=== PATIENT | male | born 1930 | race Caucasian/White ===

== ENCOUNTER 2016-10-05 13:39 | Emergency (ER) | payer MEDICARE, MEDICAID ==
[~2016-10-05] VITALS: Ht 160 cm; Wt 70.0 kg
[~2016-10-05 13:39] MED LIST: ALBU17I INH; ASPI1TAB7 PO; CALCTAB38 PO; COQ1150C2 PO; IPRA17I INH; LORA-474 PO; OMEP20TA39 PO
[2016-10-05 13:47] VITALS: BP 116/80; PULSE 89; RESP 18; TEMP 98.3; O2SAT 96
--- NOTE | 2016-10-05 14:11 | PD ---
HPI Chief Complaint: Fall Time Seen by Provider: 13:56 Travel History International Travel<30 days: No Contact w/Intl Traveler<30days: No Traveled to known affect area: No History of Present Illness HPI 85-year-old male patient presents to the ER, states that he was in his shower and slipped and fell, was able to hold onto the guard rail with his left hand, but states that his left hand also slipped and fell between the wall and the rail causing a skin tear to the left hand, and he states he was able to sit himself down on the floor. He states that he also injured his right knee. He denies hitting his head, had no loss of consciousness, chest pains, shortness of breath, or any other issues. Pain is mostly in the right knee and left hand and is currently a 4 out of 10. Modifying Factors: None Associated Signs & Symptoms: Slip and fall in shower, left hand injury, right knee injury Risk Factors: None PFSH Past Medical History Arthritis: Yes Asthma: Yes Autoimmune Disease: No Anxiety: Yes Depression: Yes Cancer: Yes (Lung/IN REMISSION PER PT) Cardiovascular Problems: Yes Chemotherapy: Yes COPD: Yes Cerebrovascular Accident: No Diabetes: No Diminished Hearing: No Endocrine: No Gastrointestinal Disorders: Yes GERD: Yes Genitourinary: No Hepatitis: No Hiatal Hernia: No Immune Disorder: No Kidney Stones: Yes Musculoskeletal: Yes Neurologic: No Psychiatric: Yes Reproductive: No Respiratory: Yes (RIGHT LUNG CA) Immunizations Current: Yes Radiation Therapy: Yes Seizures: No Thyroid Disease: No Ulcer: Yes Past Surgical History Surgical History: No Previous Surgery AICD: No Body Medical Devices: HARDWARE RIGHT KNEE, HIP, RIGHT SCLERAL BUCKLE Eye Surgery: Yes ([place] CATARACTS) Oral Surgery: Yes Pacemaker: No Tonsillectomy: Yes Other Surgery: Yes Social History Alcohol Use: No Tobacco Use: No (QUT 45YRS AGO) Substance Use: No Allergies-Medications (Allergen,Severity, Reaction): Coded Allergies: No Known Allergies (Verified , 05/21/14) Reported Meds & Prescriptions Reported Meds & Active Scripts Active Reported Proventil Hfa 6.7 GM Inh (Albuterol Sulfate) 90 Mcg/Act Aer 1 Puff INH TID PRN Aspir-Low (Aspirin) 81 Mg Tabdr 81 Mg PO DAILY Co Q-10 (Coenzyme Q10 (Ubidecarenone)) 150 Mg Cap 150 Mg PO HS Lorazepam 1 Mg Tab 1 Mg PO Q6H David Shook ([facility] [place] [facility]) 1 Cap 1 Cap PO DAILY Anoro Ellipta Inh (Umeclidinium/Vilanterol) 62.5-25 Mcg/Act Aero 1 Puff INH DAILY Review of Systems Except as stated in HPI: all other systems reviewed are Neg Physical Exam Narrative GENERAL: Well-developed pleasant elderly white male patient currently not in acute distress. Awake and oriented 3. SKIN: Focused skin assessment warm/dry. Left hand with stellate skin tear measuring 3 cm. Bleeding controlled. HEAD: Atraumatic. Normocephalic. EYES: Pupils equal and round. No scleral icterus. No injection or drainage. ENT: No nasal bleeding or discharge. Mucous membranes pink and moist. NECK: Trachea midline. No JVD. CARDIOVASCULAR: Regular rate and rhythm. No murmur appreciated. RESPIRATORY: No accessory muscle use. Clear to auscultation. Breath sounds equal bilaterally. GASTROINTESTINAL: Abdomen soft, non-tender, nondistended. Hepatic and splenic margins not palpable. MUSCULOSKELETAL: No obvious deformities. No clubbing. No cyanosis. No edema. NEUROLOGICAL: Awake and alert. No obvious cranial nerve deficits. Motor grossly within normal limits. Normal speech. PSYCHIATRIC: Appropriate mood and affect; insight and judgment normal. EXTREMITIES: No clubbing, cyanosis, or edema. No joint tenderness, effusion, or edema noted. There is notable edema in the right knee, decreased range of motion secondary to pain. Data Data Last Documented VS Vital Signs Date Time Temp Pulse Resp B/P Pulse Ox O2 Delivery O2 Flow Rate FiO2 10/05/16 13:55 94 18 97 Room Air 10/05/16 13:47 98.3 116/80 Orders Hand, Complete ([id number]) (10/05/16 13:56) Knee, Complete (4vws) (10/05/16 13:56) MDM Medical Decision Making Medical Screen Exam Complete: Yes Emergency Medical Condition: Yes Medical Record Reviewed: Yes Differential Diagnosis Slip and fall, left hand skin tear, right knee injuryrule out acute fractures versus strain Narrative Course X-ray of the right knee and left hand did not reveal any signs of underlying acute fractures. At this point, patient is placed in a knee immobilizer. The left hand skin tear was cleaned and dressed. Patient's tetanus status is up-to- date. At this point, my plan would be to release the patient with follow-up to primary care physician. Decreased weightbearing on the right leg. Return for any worsening in pain or new symptoms as needed. The plan was discussed with him and he states understanding. Diagnosis Primary Impression: Strain of knee and leg, right Additional Impression: Tear of skin of left wrist Med/Other Pt SpecificInfo: Prescription(s) given Scripts Walker with Front Wheels 1 Mis Mis #1 EA .ROUTE DIRECTED PRN (walking) Ref 1 Prov:Anish Crane MD 10/05/16 Tramadol 50 Mg Tab50 Mg PO Q8H PRN (PAIN) #15 TAB Ref 0 Prov:Anish Crane MD 10/05/16 Disposition: 01 DISCHARGE HOME Condition: Stable Anish Crane MD Oct 05, 2016 14:11
[2016-10-05] MEDS ORDERED: ASPI81TA19 PO (14:38)
[2016-10-05] MEDS ORDERED: LORA1TAB12 PO (14:38)
[2016-10-05] MEDS ORDERED: CO Q150C PO (14:38)
[2016-10-05] MEDS ORDERED: ALBU6.7H INH (14:38)
[2016-10-05] MEDS ORDERED: MISC1CAP2 PO (14:38)
[2016-10-05] MEDS ORDERED: UMEC1AER INH (14:38)
--- NOTE | 2016-10-05 15:09 | RADRPT ---
EXAM DATE/TIME: 10/05/2016 14:21 [facility] COMPARISON: No previous studies available for comparison. INDICATIONS : Left hand pain after fall today MEDICAL HISTORY : None. SURGICAL HISTORY : None. ENCOUNTER: Initial ACUITY: 1 day PAIN SCORE: 2/10 LOCATION: Left entire hand FINDINGS: No acute fracture is seen. The bones appear osteopenic. The bones and joints are normally aligned. No foreign body is seen. CONCLUSION: No definite acute abnormality is seen. J Carlos Diana MD on October 05, 2016 at 15:00 Board Certified Radiologist. This report was verified electronically.
--- NOTE | 2016-10-05 15:35 | RADRPT ---
EXAM DATE/TIME: 10/05/2016 14:16 [facility] COMPARISON: No previous studies available for comparison. INDICATIONS : Right knee pain after fall today MEDICAL HISTORY : None. SURGICAL HISTORY : None. ENCOUNTER: Initial ACUITY: 1 day PAIN SCORE: 5/10 LOCATION: Right anterior knee FINDINGS: There is narrowing of the knee joint. There is a minimal effusion. An acute fracture is not seen. There are two screws seen in the proximal tibia. The bones are osteopenic. Vascular calcifications are seen. CONCLUSION: No definite acute abnormality is seen. Chronic change is seen as described above. J Carlos Diana MD on October 05, 2016 at 14:53 Board Certified Radiologist. This report was verified electronically.
[2016-10-05] MEDS ORDERED: TRAM50TA PO (15:52)
[2016-10-05] MEDS ORDERED: WALKER WHEELS/F1 MIS (15:52)
== END 2016-10-05 16:49 | disposition home or self-care (01) ==
LOC: NEPE 13:39
DX: S86.811A Strain of other muscle(s) and tendon(s) at lower leg level, right leg, initial encounter (principal); S76.911A Strain of unspecified muscles, fascia and tendons at thigh level, right thigh, initial encounter; S61.512A Laceration without foreign body of left wrist, initial encounter; W18.2XXA Fall in (into) shower or empty bathtub, initial encounter; Y93.E1 Activity, personal bathing and showering; Y92.002 Bathroom of unspecified non-institutional (private) residence as the place of occurrence of the external cause; Z87.39 Personal history of other diseases of the musculoskeletal system and connective tissue; Z87.09 Personal history of other diseases of the respiratory system; Z86.59 Personal history of other mental and behavioral disorders; Z86.79 Personal history of other diseases of the circulatory system; Z87.19 Personal history of other diseases of the digestive system; Z87.442 Personal history of urinary calculi; Z85.118 Personal history of other malignant neoplasm of bronchus and lung
CPT/HCPCS: 73130; 73564; 99284; L1830

== ENCOUNTER 2016-11-21 08:15 | Day surgery (SDC) | payer MEDICARE, MEDICAID ==
[~2016-11-21] VITALS: Ht 172.7 cm; Wt 53.6 kg
[~2016-11-21 08:15] MED LIST changes: -ALBU17I INH; +ALBU6.7H INH; -ASPI1TAB7 PO; +ASPI81TA19 PO; -CALCTAB38 PO; +CO Q150C PO; -COQ1150C2 PO; -IPRA17I INH; -LORA-474 PO; +LORA1TAB12 PO; +MISC1CAP2 PO; -OMEP20TA39 PO; +TRAM50TA PO; +UMEC1AER INH; +WALKER WHEELS/F1 MIS
[2016-11-21 08:31] VITALS: BP 124/77; PULSE 96; RESP 20; TEMP 97.4; O2SAT 90
[2016-11-21 09:11] LABS: AUTOMATED NEUTROPHIL # 6.2 TH/MM3 (1.8-7.7); BASOPHIL # 0.1 TH/MM3 (0-0.2); EOSINOPHIL # 0.3 TH/MM3 (0-0.4); HEMATOCRIT 39.5 % (39.0-51.0); HEMO FLAGS DIFF FINAL; LYMPH % 11.2 % (9.0-44.0); LYMPHOCYTE # 0.9 TH/MM3 (1.0-4.8); MEAN CELL VOLUME 93.5 FL (80.0-100.0); MEAN CORPUSCULAR HEMOGLOBIN 31.8 PG (27.0-34.0); MONO % 6.9 % (0.0-8.0); NEUT % 76.9 % (16.0-70.0); PLATELET COUNT 142 TH/MM3 (150-450); RED BLOOD COUNT 4.22 MIL/MM3 (4.50-5.90); RED CELL DISTRIBUTION WIDTH 13.1 % (11.6-17.2)
[2016-11-21 09:15] LABS: APTT (PATIENT) 28.6 SEC (24.3-30.1); PROTHROMBIN TIME - PATIENT 10.6 SEC (9.8-11.6)
[2016-11-21] MEDS ORDERED: ceFAZolin 2 GM PREMIX 50 ML - implanted port removal IV SCH (09:15)
[2016-11-21] MEDS ORDERED: SODIUM CHLORIDE 0.9% 1000 ML IV SCH (09:15)
[2016-11-21] MEDS ORDERED: LIDOCAINE 1%/EPINEPHrine 1:100,000 SOLN 20 ML VIAL ONE (09:59)
--- NOTE | 2016-11-21 10:27 | PD.RAD ---
Post Procedure Progress Note Pre Procedure Diagnosis: (1) Port catheter in place Post Procedure Diagnosis: (1) Port catheter in place Procedure Date: Nov 21, 2016 Supervising Radiologist: Jonathan Galeas Proceduralist/Assist: Carlos Jorge, RT(R), RT Annette(R)() Estimated blood loss: <10 ml Anesthesia: Local Plan of Activity Patient to Unit: Nursing Unit Patient Condition: Good Additional Comments: Intact port removed See PACS Report for procedural detail/treatment Jonathan Galeas MD Nov 21, 2016 10:27
[2016-11-21 10:30] VITALS: BP 124/77; PULSE 96; RESP 18; TEMP 97.4; O2SAT 91
[2016-11-21 10:45] VITALS: BP 113/72; PULSE 96; RESP 18; O2SAT 91
[2016-11-21 11:00] VITALS: BP 119/76; PULSE 96; RESP 18; O2SAT 91
--- NOTE | 2016-11-21 11:15 | RADRPT ---
EXAM DATE/TIME: 11/21/2016 00:00 [facility] COMPARISON: No previous studies available for comparison. INDICATIONS : Patient presents with a history of lung cancer and is in need of port removal that is no longer neede d. MEDICAL HISTORY : COPD Asthma Hx of right lung cancer Hx of kidney stones GERD Hx of ulcers SURGICAL HISTORY : Cataract removal Colonoscopy 2010 EGD 2010 Excision of basal cell cancer Tonsillectomy Upper endoscopy Bilat hip sx 2011 and 2013 Right knee sx 1965 ENCOUNTER: Subsequent ACUITY: > 1 year PAIN SCORE: 0/10 LOCATION: N/A Prophylactic antibiotics were administered with appropriate pre-procedure timing. Vancomycin within 2 hrs of procedure, Ancef (or alternative) within 1 hr of procedure. PROCEDURE : 1. Removal of [id number]-[id number]. 2. No conscious sedation was provided per patient request. The risk, benefits and potential complications of [id number] removal were discussed. Written conse nt was obtained. The patient was placed supine. The chest wall was prepped in sterile fashion. Full sterile techniqu e was used, including cap, mask, sterile gloves and gown, and a large sterile sheet. Hand hygiene an d 2% chlorhexidine and/or Betadine/alcohol prep was utilized per protocol for cutaneous antisepsis. The skin and subcutaneous tissues were infiltrated with local anesthetic solution. A small incision w as made, the subcutaneous pocket was opened. The port was dissected from the subcutaneous tissues and easily removed in one piece. The pocket incision was closed with subcuticular Vicryl suture. Steri -Strips were applied. The patient tolerated the procedure well and there were no complications. The patient was sent to [facility] anesthesia recovery in stable condition. CONCLUSION: Uncomplicated port removal as above. Jonathan Galeas MD on November 21, 2016 at 11:13 Board Certified Radiologist. This report was verified electronically.
== END 2016-11-21 11:00 | disposition home or self-care (01) ==
LOC: HROP 08:15 → HRIP 08:16 → HROP 11:00
PROVIDERS: ATTEND Internal Medicine Hematology & Oncology
DX: Z45.2 Encounter for adjustment and management of vascular access device (principal); Z85.118 Personal history of other malignant neoplasm of bronchus and lung; J44.9 Chronic obstructive pulmonary disease, unspecified; K21.9 Gastro-esophageal reflux disease without esophagitis; F41.9 Anxiety disorder, unspecified; M19.90 Unspecified osteoarthritis, unspecified site; Z85.828 Personal history of other malignant neoplasm of skin
CPT/HCPCS: 36590; 85025; 85610; 85730; J0690; J7030

== ENCOUNTER 2017-07-01 14:02 | Emergency (ER) | payer MEDICARE, MEDICAID ==
[~2017-07-01] VITALS: Ht 172.7 cm; Wt 53.0 kg
[~2017-07-01 14:02] MED LIST changes: -TRAM50TA PO
[2017-07-01] MEDS ORDERED: SAWCAP2 PO (14:22)
[2017-07-01 14:23] VITALS: BP 117/75; PULSE 68; RESP 16; TEMP 97.7; O2SAT 96
[2017-07-01 14:25] VITALS: BP 117/75; PULSE 68; RESP 16; TEMP 97.7; O2SAT 96
[2017-07-01] MEDS ORDERED: CETI10CA3 PO (14:36)
--- NOTE | 2017-07-01 14:40 | PD ---
HPI Chief Complaint: Skin Problem Time Seen by Provider: 14:30 Travel History International Travel<30 days: No Contact w/Intl Traveler<30days: No Traveled to known affect area: No History of Present Illness HPI 86-year-old male presents for evaluation of pruritus. Symptoms started 2-3 months ago. He reports pruritus and occasional papular lesions focally localized to the back. He reports that he has been using an unknown over-the- counter cream on his back since yesterday with minimal relief. He denies any recent change in living environment. Denies any new clothing. He has no other complaints at this time. PFSH Past Medical History Arthritis: Yes Asthma: Yes Autoimmune Disease: No Anxiety: Yes Depression: Yes Cancer: Yes (Lung/IN REMISSION PER PT) Cardiovascular Problems: Yes Chemotherapy: Yes COPD: Yes Cerebrovascular Accident: No Diabetes: No Diminished Hearing: No Endocrine: No Gastrointestinal Disorders: Yes GERD: Yes Genitourinary: No Hepatitis: No Hiatal Hernia: No Immune Disorder: No Kidney Stones: Yes Musculoskeletal: Yes (Artheritis) Neurologic: No Psychiatric: Yes Reproductive: No Respiratory: Yes (RIGHT LUNG CA) Immunizations Current: Yes Radiation Therapy: Yes Seizures: No Thyroid Disease: No Ulcer: Yes Past Surgical History Abdominal Surgery: No AICD: No Body Medical Devices: HARDWARE RIGHT KNEE, HIP, RIGHT SCLERAL BUCKLE Cardiac Surgery: No Ear Surgery: No Eye Surgery: Yes ([place] CATARACTS) Genitourinary Surgery: No Gynecologic Surgery: No Joint Replacement: No Oral Surgery: Yes Pacemaker: No Thoracic Surgery: No Tonsillectomy: Yes Other Surgery: Yes Social History Alcohol Use: No Tobacco Use: No (QUT 45YRS AGO) Substance Use: No Allergies-Medications (Allergen,Severity, Reaction): Coded Allergies: No Known Allergies (Verified Adverse Reaction, Unknown, 07/01/17) Reported Meds & Prescriptions Reported Meds & Active Scripts Active Zyrtec (Cetirizine HCl) 10 Mg Capsule 1 Tab PO DAILY 14 Days Reported Saw [place] Extract (Saw [place]-Zinc) 160-15 mg Cap 2 Cap PO DAILY Proventil Hfa 6.7 GM Inh (Albuterol Sulfate) 90 Mcg/Act Aer 1 Puff INH TID PRN Aspir-Low (Aspirin) 81 Mg Tabdr 81 Mg PO DAILY Co Q-10 (Coenzyme Q10 (Ubidecarenone)) 150 Mg Cap 150 Mg PO HS Lorazepam 1 Mg Tab 1 Mg PO TID Anoro Ellipta Inh (Umeclidinium/Vilanterol) 62.5-25 Mcg/Act Aero 1 Puff INH DAILY Review of Systems Except as stated in HPI: all other systems reviewed are Neg Physical Exam Narrative GENERAL: Well-developed well-nourished male in no acute distress SKIN: Warm and dry. Patient has a few small excoriated papular lesions noted to the back. No petechiae, no vesicles, no pustules, no purpura, no hives HEAD: Atraumatic. Normocephalic. EYES: Pupils equal and round. No scleral icterus. No injection or drainage. ENT: No nasal bleeding or discharge. Mucous membranes pink and moist. NECK: Trachea midline. No JVD. CARDIOVASCULAR: Regular rate and rhythm. No murmur appreciated. RESPIRATORY: No accessory muscle use. Clear to auscultation. Breath sounds equal bilaterally. GASTROINTESTINAL: Abdomen soft, non-tender, nondistended. Hepatic and splenic margins not palpable. MUSCULOSKELETAL: No obvious deformities. No clubbing. No cyanosis. No edema. NEUROLOGICAL: Awake and alert. No obvious cranial nerve deficits. Motor grossly within normal limits. Normal speech. PSYCHIATRIC: Appropriate mood and affect; insight and judgment normal. Data Data Last Documented VS Vital Signs Date Time Temp Pulse Resp B/P (MAP) Pulse Ox O2 Delivery O2 Flow Rate FiO2 07/01/17 14:25 97.7 68 16 117/75 (89) 96 Orders Orders Ed Discharge Order (07/01/17 14:37) [facility] Medical Decision Making Medical Screen Exam Complete: Yes Emergency Medical Condition: Yes Medical Record Reviewed: Yes Differential Diagnosis Bug bites, flea bites, irritant contact dermatitis, pityriasis rosea, viral exanthem, scabies, hives Narrative Course 86-year-old male with long-standing pruritic papular lesions on his back. Examination reveals few small scattered excoriated papular lesions on his back with unclear etiology. He has been using some sort of [id number] cream with minimal relief. The patient will be treated with nonsedating antihistamines and advised follow-up with a patient office rep if symptoms persist. Diagnosis Primary Impression: Pruritic rash Additional Instructions: Medications prescribed. Follow up with a patient office rep. Return for any emergent medical conditions. Med/Other Pt SpecificInfo: Prescription(s) given Scripts Cetirizine HCl (Zyrtec) 10 Mg Capsule 1 TAB PO DAILY for 14 Days Prov: Daniel Villa MD 07/01/17 Disposition: 01 DISCHARGE HOME Condition: Stable Fabien Melendez Jul 01, 2017 14:40
== END 2017-07-01 14:59 | disposition home or self-care (01) ==
LOC: PHEFT 14:02
DX: R21 Rash and other nonspecific skin eruption (principal); J44.9 Chronic obstructive pulmonary disease, unspecified; K21.9 Gastro-esophageal reflux disease without esophagitis; F32.9 Major depressive disorder, single episode, unspecified; Z85.118 Personal history of other malignant neoplasm of bronchus and lung; Z79.82 Long term (current) use of aspirin; Z87.891 Personal history of nicotine dependence
CPT/HCPCS: 99283

== ENCOUNTER 2017-08-12 19:11 | Inpatient (IN) | payer MEDICARE, MEDICAID ==
[~2017-08-12] VITALS: Ht 172.7 cm; Wt 51.7 kg
[~2017-08-12 19:11] MED LIST changes: +CETI10CA3 PO; +HEPARIN SODIUM - SQ 10,000 UNITS/ML VIAL SQ SCH; -MISC1CAP2 PO; +SAWCAP2 PO; -WALKER WHEELS/F1 MIS
[2017-08-12 19:15] VITALS: BP 113/65; PULSE 113; RESP 18; TEMP 100.8; O2SAT 95
[2017-08-12] MEDS ORDERED: SODIUM CHLORIDE 0.9% FLUSH 10 ML FLUSH IVF PRN (19:30)
--- NOTE | 2017-08-12 19:31 | PD ---
HPI Chief Complaint: Respiratory Symptoms Time Seen by Provider: 19:26 Travel History International Travel<30 days: No Contact w/Intl Traveler<30days: No Traveled to known affect area: No History of Present Illness HPI 86-year-old male with history of lung cancer status post chemotherapy and radiation therapy reportedly in remission for 47 months, COPD, brought in by ambulance from home for evaluation of shortness of breath. The patient reports that he developed a cough yesterday productive of yellowish sputum. No hemoptysis. He had some slight shortness of breath yesterday evening which progressively worsened throughout the day today. He also noted generalized weakness and a fever. He was provided 1 DuoNeb treatment and IV Solu-Medrol by EMS and on arrival reportedly feels improved. He denies chest pain. Dyspnea is at rest, worse with exertion. He has noted some mild bilateral lower extremity edema. Denies history of DVT or PE. PFSH Past Medical History Arthritis: Yes Asthma: Yes Autoimmune Disease: No Anxiety: Yes Depression: Yes Cancer: Yes (Lung/IN REMISSION PER PT) Cardiovascular Problems: Yes Chemotherapy: Yes COPD: Yes Cerebrovascular Accident: No Diabetes: No Diminished Hearing: No Endocrine: No Gastrointestinal Disorders: Yes GERD: Yes Genitourinary: No Hepatitis: No Hiatal Hernia: No Immune Disorder: No Kidney Stones: Yes Musculoskeletal: Yes (Artheritis) Neurologic: No Psychiatric: Yes Reproductive: No Respiratory: Yes (RIGHT LUNG CA) Immunizations Current: Yes Radiation Therapy: Yes Seizures: No Thyroid Disease: No Ulcer: Yes Past Surgical History Abdominal Surgery: No AICD: No Body Medical Devices: HARDWARE RIGHT KNEE, HIP, RIGHT SCLERAL BUCKLE Cardiac Surgery: No Ear Surgery: No Eye Surgery: Yes ([place] CATARACTS) Genitourinary Surgery: No Gynecologic Surgery: No Joint Replacement: No Oral Surgery: Yes Pacemaker: No Thoracic Surgery: No Tonsillectomy: Yes Other Surgery: Yes Social History Alcohol Use: No Tobacco Use: No (QUT 45YRS AGO) Substance Use: No Allergies-Medications (Allergen,Severity, Reaction): Coded Allergies: No Known Allergies (Verified Adverse Reaction, Unknown, 08/12/17) Reported Meds & Prescriptions Reported Meds & Active Scripts Active Zyrtec (Cetirizine HCl) 10 Mg Capsule 1 Tab PO DAILY 14 Days Reported Saw [place] Extract (Saw [place]-Zinc) 160-15 mg Cap 2 Cap PO DAILY Proventil Hfa 6.7 GM Inh (Albuterol Sulfate) 90 Mcg/Act Aer 1 Puff INH TID PRN Aspir-Low (Aspirin) 81 Mg Tabdr 81 Mg PO DAILY Co Q-10 (Coenzyme Q10 (Ubidecarenone)) 150 Mg Cap 150 Mg PO HS Lorazepam 1 Mg Tab 1 Mg PO TID Anoro Ellipta Inh (Umeclidinium/Vilanterol) 62.5-25 Mcg/Act Aero 1 Puff INH DAILY Review of Systems Except as stated in HPI: all other systems reviewed are Neg Physical Exam Narrative GENERAL: Well-developed, cachectic, slightly labored breathing. SKIN: Focused skin assessment warm/dry. HEAD: Atraumatic. Normocephalic. EYES: Pupils equal and round. No scleral icterus. No injection or drainage. ENT: Mucous membranes pink and moist. NECK: Trachea midline. No JVD. CARDIOVASCULAR: Tachycardic, rate 14, regular. RESPIRATORY: Slightly labored breathing, clear and equal breath sounds bilaterally. GASTROINTESTINAL: Abdomen soft, non-tender, nondistended. MUSCULOSKELETAL: No obvious deformities. No clubbing. No cyanosis. Mild bilateral lower extremity edema. NEUROLOGICAL: Awake and alert. No obvious cranial nerve deficits. Motor grossly within normal limits. Normal speech. PSYCHIATRIC: Appropriate mood and affect; insight and judgment normal. Data Data Last Documented VS Vital Signs Date Time Temp Pulse Resp B/P (MAP) Pulse Ox O2 Delivery O2 Flow Rate FiO2 08/12/17 22:03 102 18 119/72 (88) 95 Room Air 08/12/17 19:15 100.8 Orders Orders Complete Blood Count With Diff (08/12/17 19:26) Comprehensive Metabolic Panel (08/12/17 19:26) B-Type Natriuretic Peptide (08/12/17 19:26) Act Partial Throm Time (Ptt) (08/12/17 19:26) Prothrombin Time / Inr (Pt) (08/12/17 19:26) Ckmb (Isoenzyme) Profile (08/12/17 19:26) Troponin I (08/12/17 19:26) Influenzae A/B Antigen (08/12/17 19:26) Blood Culture (08/12/17 19:26) Iv Access Insert/Monitor (08/12/17 19:26) Ecg Monitoring (08/12/17 19:26) Oximetry (08/12/17 19:26) Oxygen Administration (08/12/17 19:26) Chest, Single Ap (08/12/17 19:26) Ct Pulmonary Angiogram (08/12/17 19:26) Sodium Chloride 0.9% Flush (Ns Flush) (08/12/17 19:30) Acetaminophen (Tylenol) (08/12/17 21:00) Ceftriaxone Inj (Rocephin Inj) (08/12/17 21:00) Azithromycin Inj (Zithromax Inj) (08/12/17 21:00) Iohexol 350 Inj (Omnipaque 350 Inj) (08/12/17 21:12) Labs Laboratory Tests Test 08/12/17 20:00 White Blood Count 13.1 TH/MM3 Red Blood Count 4.27 MIL/MM3 Hemoglobin 13.9 GM/DL Hematocrit 40.9 % Mean Corpuscular Volume 95.7 FL Mean Corpuscular Hemoglobin 32.6 PG Mean Corpuscular Hemoglobin Concent 34.0 % Red Cell Distribution Width 12.8 % Platelet Count 116 TH/MM3 Mean Platelet Volume 8.7 FL Neutrophils (%) (Auto) 85.9 % Lymphocytes (%) (Auto) 6.2 % Monocytes (%) (Auto) 4.7 % Eosinophils (%) (Auto) 0.6 % Basophils (%) (Auto) 2.6 % Neutrophils # (Auto) 11.3 TH/MM3 Lymphocytes # (Auto) 0.8 TH/MM3 Monocytes # (Auto) 0.6 TH/MM3 Eosinophils # (Auto) 0.1 TH/MM3 Basophils # (Auto) 0.3 TH/MM3 CBC Comment DIFF FINAL Differential Comment Prothrombin Time 10.3 SEC Prothromb Time International Ratio 1.0 RATIO Activated Partial Thromboplast Time 28.3 SEC Blood Urea Nitrogen 16 MG/DL Creatinine 1.10 MG/DL Random Glucose 136 MG/DL Total Protein 8.2 GM/DL Albumin 4.2 GM/DL Calcium Level 8.4 MG/DL Alkaline Phosphatase 74 U/L Aspartate Amino Transf (AST/SGOT) 16 U/L Alanine Aminotransferase (ALT/SGPT) 14 U/L Total Bilirubin 1.1 MG/DL Sodium Level 136 MEQ/L Potassium Level 4.2 MEQ/L Chloride Level 101 MEQ/L Carbon Dioxide Level 30.2 MEQ/L Anion Gap 5 MEQ/L Estimat Glomerular Filtration Rate 63 ML/MIN Total Creatine Kinase 86 U/L Troponin I LESS THAN 0.02 NG/ML B-Type Natriuretic Peptide 66 PG/ML MDM Medical Decision Making Medical Screen Exam Complete: Yes Emergency Medical Condition: Yes Medical Record Reviewed: Yes Differential Diagnosis Pneumonia, COPD exacerbation, influenza, PE Narrative Course Initial vital signs show heart rate 113, blood pressure 113/65, pulse ox 95% on room air, oral temperature 100.8F. CBC: WBC 13.1, hemoglobin 13.9, hematocrit 40.9, platelets 116, neutrophils 86%. CMP is essentially unremarkable. Chest x-ray: CONCLUSION: Post therapy changes the right lung with pleural thickening or pleural fluid in the right base. The findings have progressed when compared to the prior study. CT pulmonary angiogram: CONCLUSION: 1. No evidence of pulmonary embolism. 2. Right pleural effusion Influenza is negative. The patient was empirically written for Rocephin and azithromycin for possible pneumonia given fever, cough, respiratory distress. His COPD exacerbation seem to have improved with 1 DuoNeb treatment and IV Solu-Medrol given by EMS prior to arrival. His breathing remains slightly labored, however his lung sounds are now clear. Given the patient's significant comorbidities, fever, COPD exacerbation, moderate size right pleural effusion, he will be admitted for further treatment and evaluation. He reports that he is followed by a fitness centre manager, however he cannot recall his doctor's name. The patient was made aware of all findings and is amenable to this plan. Case discussed with hospitalist BHAVNA Briggs. The patient will be admitted to the hospitalist service under Dr. Michaud. Diagnosis Primary Impression: COPD exacerbation Additional Impression: Pleural effusion Admitting Information Admitting Physician Requests: Admit Tito Beal MD Aug 12, 2017 19:31
[2017-08-12 20:12] VITALS: BP 120/64; PULSE 101; RESP 18; O2SAT 95
[2017-08-12 20:19] LABS: AUTOMATED NEUTROPHIL # 11.3 TH/MM3 (1.8-7.7); BASOPHIL # 0.3 TH/MM3 (0-0.2); BASOPHIL % 2.6 % (0.0-2.0); EOSINOPHIL # 0.1 TH/MM3 (0-0.4); EOSINOPHIL % 0.6 % (0.0-4.0); HEMATOCRIT 40.9 % (39.0-51.0); HEMOGLOBIN 13.9 GM/DL (13.0-17.0); LYMPH % 6.2 % (9.0-44.0); LYMPHOCYTE # 0.8 TH/MM3 (1.0-4.8); MEAN CELL VOLUME 95.7 FL (80.0-100.0); MEAN CORPUSCULAR HEMOGLOBIN 32.6 PG (27.0-34.0); MEAN PLATELET VOLUME 8.7 FL (7.0-11.0); MONO % 4.7 % (0.0-8.0); MONOCYTE # 0.6 TH/MM3 (0-0.9); NEUT % 85.9 % (16.0-70.0); PLATELET COUNT 116 TH/MM3 (150-450); RED BLOOD COUNT 4.27 MIL/MM3 (4.50-5.90); RED CELL DISTRIBUTION WIDTH 12.8 % (11.6-17.2); WHITE BLOOD COUNT 13.1 TH/MM3 (4.0-11.0)
[2017-08-12 20:25] LABS: CHLORIDE 101 MEQ/L (98-107); SODIUM (NA) 136 MEQ/L (136-145)
[2017-08-12 20:29] LABS: ALBUMIN 4.2 GM/DL (3.4-5.0); BICARBONATE 30.2 MEQ/L (21.0-32.0); CALCIUM 8.4 MG/DL (8.5-10.1); GLUCOSE,RANDOM 136 MG/DL (74-106)
[2017-08-12 20:30] LABS: BLOOD UREA NITROGEN 16 MG/DL (7-18)
[2017-08-12 20:31] LABS: PROTHROMBIN TIME - PATIENT 10.3 SEC (9.8-11.6)
[2017-08-12 20:32] LABS: ALT (GPT) 14 U/L (12-78); AST (GOT) 16 U/L (15-37); GLOMERULAR FILTRATION RATE 63 ML/MIN (>89)
--- NOTE | 2017-08-12 20:33 | RADRPT ---
EXAM DATE/TIME: 08/12/2017 20:02 [facility] COMPARISON: CHEST SINGLE AP, October 05, 2014, 3:51. INDICATIONS : Short of breath. MEDICAL HISTORY : Chronic obstructive pulmonary disease. Gastroesophageal reflux disease. Right lung cancer. SURGICAL HISTORY : None. ENCOUNTER: Initial ACUITY: 2 days PAIN SCORE: 0/10 LOCATION: Bilateral chest FINDINGS: The cardiac silhouette is normal in transverse diameter. There are findings of peripheral scarring in volving the right lung with post therapy changes in the right hilum and volume loss with pleural thic kening and a small amount of effusion. The left lung is free of acute parenchymal opacity. CONCLUSION: Post therapy changes the right lung with pleural thickening or pleural fluid in the right base. The f indings have progressed when compared to the prior study. Charly Medrano MD on August 12, 2017 at 20:31 Board Certified Radiologist. This report was verified electronically.
[2017-08-12 20:34] LABS: TOTAL BILIRUBIN ADULT 1.1 MG/DL (0.2-1.0); TOTAL PROTEIN 8.2 GM/DL (6.4-8.2)
[2017-08-12 20:35] LABS: ALKALINE PHOSPHATASE 74 U/L (45-117)
[2017-08-12 20:37] LABS: TROPONIN I LESS THAN 0.02 NG/ML (0.02-0.05)
[2017-08-12] MEDS ORDERED: ACETAMINOPHEN 325 MG TAB PO ONE (21:00)
[2017-08-12] MEDS ORDERED: AZITHROMYCIN INJ 500 MG in SODIUM CHLOR 0.9% 250 ML INJ 250 ML IV ONE (21:00)
[2017-08-12] MEDS ORDERED: cefTRIAXone INJ 1,000 MG in SODIUM CHLORIDE 0.9% INJ 100 ML IV ONE (21:00)
[2017-08-12] MEDS ORDERED: IOHEXOL 350 MG/ML 10 ML VIAL (for RAD DIAG) IVCONTRAST ONE (21:12)
--- NOTE | 2017-08-12 21:57 | RADRPT ---
EXAM DATE/TIME: 08/12/2017 20:57 [facility] COMPARISON: No previous studies available for comparison. INDICATIONS : Shortness of breath. History of right lung cancer. IV CONTRAST: 75 cc Omnipaque 350 (iohexol) IV RADIATION DOSE: 6.70 CTDIvol (mGy) MEDICAL HISTORY : Carcinoma, lung. Chronic obstructive pulmonary disease. SURGICAL HISTORY : None. ENCOUNTER: Initial ACUITY: 1 day PAIN SCALE: 0/10 LOCATION: Right chest TECHNIQUE: Volumetric scanning of the chest was performed using a pulmonary embolism protocol MIP images were re constructed. Using automated exposure control and adjustment of the mA and/or kV according to patien t size, radiation dose was kept as low as reasonably achievable to obtain optimal diagnostic quality images. DICOM format image data is available electronically for review and comparison. Follow-up recommendations for detected pulmonary nodules are based at a minimum on nodule size and pa tient risk factors according to Fleischner Society Guidelines. FINDINGS: Examination of the pulmonary vasculature demonstrates good filling of the main, lobar and segmental b ranches. There are no filling defects to suggest pulmonary embolism. Multiplanar reconstructions are also unremarkable. There are centrilobular emphysematous changes throughout both lungs. Moderate right-sided effusion is present. There are posterior the changes in the right hilum. A 5 cm bulla is present in the right up per lobe. CONCLUSION: 1. No evidence of pulmonary embolism. 2. Right pleural effusion Charly Medrano MD on August 12, 2017 at 21:53 Board Certified Radiologist. This report was verified electronically.
[2017-08-12 22:03] VITALS: BP 119/72; PULSE 102; RESP 18; O2SAT 95
[2017-08-12] MEDS ORDERED: NALOXONE HCL 0.4 MG/ML AMP IV PUSH PRN (22:30)
[2017-08-12] MEDS ORDERED: SODIUM CHLORIDE 0.9% FLUSH 10 ML FLUSH IV FLUSH PRN (22:30)
[2017-08-13] VITALS (8 sets, daily range): BP systolic 95–134; BP diastolic 56–72; PULSE 86–113; RESP 18–24; TEMP 95.5–97; O2SAT 87–100
[2017-08-13] MEDS: RESP: ALBUTEROL 2.5 MG/IPRATROPIUM 0.5 MG NEB (SCH) NEB ×6 (00:45→21:55)
[2017-08-13] MEDS: HEPARIN SODIUM - SQ 10,000 UNITS/ML VIAL SQ SCH ×2 (06:30→11:55)
[2017-08-13 08:39] LABS: AUTOMATED NEUTROPHIL # 11.2 TH/MM3 (1.8-7.7); BASOPHIL # 0.2 TH/MM3 (0-0.2); BASOPHIL % 1.7 % (0.0-2.0); EOSINOPHIL # 0.1 TH/MM3 (0-0.4); EOSINOPHIL % 0.8 % (0.0-4.0); HEMATOCRIT 42.1 % (39.0-51.0); HEMOGLOBIN 14.5 GM/DL (13.0-17.0); LYMPH % 5.9 % (9.0-44.0); LYMPHOCYTE # 0.7 TH/MM3 (1.0-4.8); MEAN CELL VOLUME 96.2 FL (80.0-100.0); MEAN CORPUSCULAR HGB CONC 34.3 % (32.0-36.0); MEAN PLATELET VOLUME 8.7 FL (7.0-11.0); MONO % 0.8 % (0.0-8.0); MONOCYTE # 0.1 TH/MM3 (0-0.9); NEUT % 90.8 % (16.0-70.0); PLATELET COUNT 137 TH/MM3 (150-450); RED BLOOD COUNT 4.38 MIL/MM3 (4.50-5.90); RED CELL DISTRIBUTION WIDTH 12.8 % (11.6-17.2); WHITE BLOOD COUNT 12.3 TH/MM3 (4.0-11.0)
[2017-08-13 08:52] LABS: BICARBONATE 25.4 MEQ/L (21.0-32.0); CALCIUM 8.7 MG/DL (8.5-10.1)
[2017-08-13 08:56] LABS: CREATININE 1.2 MG/DL (0.60-1.30)
[2017-08-13] MEDS: SODIUM CHLORIDE 0.9% FLUSH 10 ML FLUSH IV FLUSH SCH ×2 (09:00→20:24)
--- NOTE | 2017-08-13 11:08 | HHI.HP ---
[facility] Shawn Matute, DO Admission Diagnosis COPD Exacerbation, Pleural Effusion, Fever Diagnoses: Travel History International Travel<30 Days: No Contact w/Intl Traveler <30 Da: No Traveled to Known Affected Are: No History of Present Illness was coughign a lot last night felt warm and ears hot told his daughter adn then he called 911 was having trouble breathign because of coughign tomorrow has appointment with Dr Lujan for his lung caer, free of it for 48months right UE had skin cancer and on friday needs stitches out uses a walker due to chronic R knee prior surgery pain and istability has recent sprays around his apt complex the dya before yesterday, was 3 yrs since and stated he was gettign nervous then he started couhgin and temp up temp was 100.8 in er no steroids use not on home oxygen ativan tid at home - [facility] on [facility] same david gonzalez is Review of Systems Except as stated in HPI: all other systems reviewed are Neg Past Family Social History Past Medical History sees a heart doctor- for irrregular rhythm - had holter done, and was told he will see this heart doc in a year- [facility]- was seen by Dr Johnston 15yrs ago, no intervention, but was placed on ASA since then COPD - NOT on oxygen BPH- saw pametto chronic LE pedal edema- usually goes away with raising feet at night, but chair is not working now and uses pillow right lung cancer NSCLC- s/p chemo and radiation- remission for 48 months now anxiety osteoarthritis RIght UE basal cell carcinoma of skin Past Surgical History skin cancer removal bilateral hip sx right knee sx - 17 yrs ago Allergies: Coded Allergies: No Known Allergies (Verified Adverse Reaction, Unknown, 08/12/17) Family History dad- cva, pad mother lung cancer Social History quit smoking 30yrs ago no etoh abuse no drugs lives on his own, walks with a walker, still driving daughter lives in [place] Physical Exam Vital Signs Vital Signs Date Time Temp Pulse Resp B/P (MAP) Pulse Ox O2 Delivery O2 Flow Rate FiO2 08/13/17 08:00 96.6 87 20 103/58 (73) 96 08/13/17 00:33 96.3 106 18 134/72 (92) 97 08/13/17 00:23 104 95 08/13/17 00:12 104 18 121/62 (81) 95 Room Air 08/12/17 22:03 102 18 119/72 (88) 95 Room Air 08/12/17 20:12 101 18 120/64 (82) 95 Room Air 08/12/17 19:15 18 95 Room Air 08/12/17 19:15 113 18 95 Room Air 08/12/17 19:15 100.8 113 18 113/65 (81) 95 08/12/17 19:15 95 Room Air Physical Exam GENERAL: This is a thin gentleman, not in acute distress, however is tachypneic at rest. He reports this is due to anxiety. SKIN: No rashes, ecchymoses or lesions. Cool and dry. HEAD: Atraumatic. Normocephalic. No temporal or scalp tenderness. EYES: No scleral icterus. No injection or drainage. ENT: Nose without bleeding, purulent drainage or septal hematoma. Airway patent. NECK: Trachea midline. No JVD CARDIOVASCULAR: Regular rate and rhythm without murmurs, gallops, or rubs. RESPIRATORY: Bilaterally decreased air entry. More so on the right side. GASTROINTESTINAL: Abdomen soft, non-tender, nondistended. . No guarding. MUSCULOSKELETAL: Extremities without clubbing, cyanosis. Bilateral lower extremity trace edema. Left calf slightly bigger than the right which he said is chronic.. No calf tenderness. NEUROLOGICAL: Awake and alert. Motor and sensory grossly within normal limits. Normal speech. Laboratory Laboratory Tests Test 08/12/17 20:00 08/13/17 08:30 White Blood Count 13.1 12.3 Red Blood Count 4.27 4.38 Hemoglobin 13.9 14.5 Hematocrit 40.9 42.1 Mean Corpuscular Volume 95.7 96.2 Mean Corpuscular Hemoglobin 32.6 33.0 Mean Corpuscular Hemoglobin Concent 34.0 34.3 Red Cell Distribution Width 12.8 12.8 Platelet Count 116 137 Mean Platelet Volume 8.7 8.7 Neutrophils (%) (Auto) 85.9 90.8 Lymphocytes (%) (Auto) 6.2 5.9 Monocytes (%) (Auto) 4.7 0.8 Eosinophils (%) (Auto) 0.6 0.8 Basophils (%) (Auto) 2.6 1.7 Neutrophils # (Auto) 11.3 11.2 Lymphocytes # (Auto) 0.8 0.7 Monocytes # (Auto) 0.6 0.1 Eosinophils # (Auto) 0.1 0.1 Basophils # (Auto) 0.3 0.2 CBC Comment DIFF FINAL DIFF FINAL Differential Comment Prothrombin Time 10.3 Prothromb Time International Ratio 1.0 Activated Partial Thromboplast Time 28.3 Blood Urea Nitrogen 16 18 Creatinine 1.10 1.20 Random Glucose 136 168 Total Protein 8.2 Albumin 4.2 Calcium Level 8.4 8.7 Alkaline Phosphatase 74 Aspartate Amino Transf (AST/SGOT) 16 Alanine Aminotransferase (ALT/SGPT) 14 Total Bilirubin 1.1 Sodium Level 136 137 Potassium Level 4.2 4.0 Chloride Level 101 101 Carbon Dioxide Level 30.2 25.4 Anion Gap 5 11 Estimat Glomerular Filtration Rate 63 57 Total Creatine Kinase 86 Troponin I LESS THAN 0.02 B-Type Natriuretic Peptide 66 Date/Time Source Procedure Growth Status 08/12/17 20:05 Blood Peripheral Aerobic Blood Culture Pending Received 08/12/17 20:05 Blood Peripheral Anaerobic Blood Culture Pending Received 08/12/17 20:00 Nasal Washing Influenza Types A,B Antigen (SHIV) - Final NEGATIVE FOR FLU A AND B ANTIGEN.... Complete Result Diagram: 08/13/1730 08/13/17 0830 Imaging Last 48 hours Impressions Chest X-Ray 08/12/171925 Signed Impressions: Service Date/Time: Saturday, August 12, 2017 20:02 - CONCLUSION: Post therapy changes the right lung with pleural thickening or pleural fluid in the right base. The findings have progressed when compared to the prior study. Charly Medrano MD CT Angiography 08/12/171925 Signed Impressions: Service Date/Time: Saturday, August 12, 2017 20:57 - CONCLUSION: 1. No evidence of pulmonary embolism. 2. Right pleural effusion Charly Medrano MD Capletii VTE Risk Assessment Dennis VTE Risk Assessment: Mod/High Risk (score >= 2) Caprini Risk Assessment Model Point Value = 1 Point Value = 2 Point Value = 3 Point Value = 5 Age 41-60 Minor surgery BMI > 25 kg/m2 Swollen legs Varicose veins or History of unexplained or recurrent spontaneous Oral contraceptives or hormone replacement Sepsis (< 1 month) Serious lung disease, including pneumonia (< 1 month) Abnormal pulmonary function Acute myocardial infarction Congestive heart failure (< 1 month) History of inflammatory bowel disease Medical patient at bed rest Age 61-74 Arthroscopic surgery Major open surgery (> 45 min) Laparoscopic surgery (> 45 min) Malignancy Confined to bed (> 72 hours) Immobilizing plaster cast Central venous access Age >= 75 History of VTE Family history of VTE Factor V Leiden Prothrombin [id number] Lupus anticoagulant Anticardiolipin antibodies Elevated serum homocysteine Heparin-induced thrombocytopenia Other congenital or acquired thrombophilia Stroke (< 1 month) Elective arthroplasty Hip, pelvis, or leg fracture Acute spinal cord injury (< 1 month) Prophylaxis Regimen Total Risk Factor Score Risk Level Prophylaxis Regimen 0-1 Low Early ambulation 2 Moderate Order ONE of the following: *Sequential Compression Device (SCD) *Heparin 5000 units SQ BID 3-4 Higher Order ONE of the following medications: *Heparin 5000 units SQ TID *Enoxaparin/Lovenox 40 mg SQ daily (WT < 150 kg, CrCl > 30 mL/min) *Enoxaparin/Lovenox 30 mg SQ daily (WT < 150 kg, CrCl > 10-29 mL/min) *Enoxaparin/Lovenox 30 mg SQ BID (WT < 150 kg, CrCl > 30 mL/min) AND/OR *Sequential Compression Device (SCD) 5 or more Highest Order ONE of the following medications: *Heparin 5000 units SQ TID (Preferred with Epidurals) *Enoxaparin/Lovenox 40 mg SQ daily (WT < 150 kg, CrCl > 30 mL/min) *Enoxaparin/Lovenox 30 mg SQ daily (WT < 150 kg, CrCl > 10-29 mL/min) *Enoxaparin/Lovenox 30 mg SQ BID (WT < 150 kg, CrCl > 30 mL/min) AND *Sequential Compression Device (SCD) Assessment and Plan Assessment and Plan Impression: copd exacerbation pneumonia low grade fever moderate size right pleural effusion - malignant vs infectious Co morbidities: sees a heart doctor- for irrregular rhythm - had holter done, and was told he will see this heart doc in a year- [facility]- was seen by Dr Johnston 15yrs ago, no intervention, but was placed on ASA since then COPD - NOT on oxygen BPH- saw pametto chronic LE pedal edema- usually goes away with raising feet at night, but chair is not working now and uses pillow right lung cancer NSCLC- s/p chemo and radiation- remission for 48 months now anxiety osteoarthritis RIght UE basal cell carcinoma of skin Plan: nebs monitor for fevers no need of steroids bnp normal however, with given le edema, and dyspnea, will check echo US guided thoracocentesis for moderate effusion as pt is still tachypneic on exam though saturating well cytology of pleural fluid levofloxacin po for pneumoia home meds resumed- see med rec will fu sputum cx dvt prophylaxis with lovenox pt is admitted as inpatient agree with certification of it pt with symptomatic dyspnea on exertion, fever, congestion, moderate size pleural effusion with hx of lung cacer, copd Discussed Condition With patient, nursing staff Denys Howard MD Aug 13, 2017 11:08
[2017-08-13] MEDS: LORazepam 1 MG TAB PO SCH ×2 (11:40→18:36)
[2017-08-13] MEDS: ASPIRIN EC 81 MG TABEC PO SCH (11:56)
--- NOTE | 2017-08-13 14:38 | RADRPT ---
EXAM DATE/TIME: 08/13/2017 14:17 [facility] COMPARISON: CT PULMONARY ANGIOGRAM, August 12, 2017, 20:57. CHEST SINGLE AP, August 12, 2017, 20:02. INDICATIONS : Post thoracentesis MEDICAL HISTORY : Carcinoma, lung. Chronic obstructive pulmonary disease SURGICAL HISTORY : None. ENCOUNTER: Initial ACUITY: 1 day PAIN SCORE: 0/10 LOCATION: Right chest FINDINGS: Portable AP view of the chest demonstrates a normal-sized cardiac silhouette. There is a large right pneumothorax following right thoracentesis. Left lung demonstrates no acute finding. Bones demonstrat e no acute finding. CONCLUSION: Large right pneumothorax following right thoracentesis. J Carlos Spear MD on August 13, 2017 at 14:29 Board Certified Radiologist. This report was verified electronically.
[2017-08-13 14:54] LABS: PLEURAL FLUID RBC 520 /MM3 (0-0); PLEURAL FLUID WBC 670 /MM3 (0-10)
--- NOTE | 2017-08-13 15:34 | RADRPT ---
EXAM DATE/TIME: 08/13/2017 14:45 [facility] COMPARISON: CT PULMONARY ANGIOGRAM, August 12, 2017, 20:57. CHEST EXPIRATION ONLY, August 13, 2017, 14:17. INDICATIONS : Post chest tube placement MEDICAL HISTORY : Carcinoma, lung. Chronic obstructive pulmonary disease SURGICAL HISTORY : None. ENCOUNTER: Subsequent ACUITY: 1 day PAIN SCORE: 0/10 LOCATION: Right chest FINDINGS: Pigtail catheter in good position. Moderate pneumothorax persists on the right persist. Left lung clear.. . CONCLUSION: Moderate pneumothorax persists. Shawn Meza MD FACR on August 13, 2017 at 15:32 Board Certified Radiologist. This report was verified electronically.
--- NOTE | 2017-08-13 16:07 | RADRPT ---
EXAM DATE/TIME: 08/13/2017 11:45 [facility] COMPARISON: CHEST EXPIRATION ONLY, August 13, 2017, 14:17. CHEST EXPIRATION ONLY, August 13, 2017, 14:45. INDICATIONS : Right pleural effusion. MEDICAL HISTORY : Gastroesophageal reflux disease. Chronic obstructive pulmonary disease. Kidney stones. Asthma. Lung cancer. SURGICAL HISTORY : Tonsillectomy. Chemotherapy. Radiation therapy. ENCOUNTER: Initial ACUITY: 1 day PAIN SCORE: 2/10 LOCATION: Right chest FLUID: Total volume of 1100 cc of clear, yellow fluid was removed. Fluid was sent to lab for ordered studies. TECHNIQUE: 1. Ultrasound guidance for thoracentesis. 2. Thoracentesis. The risks, benefits, and alternatives to ultrasound guided thoracentesis were explained to the patien t in lay simple terms, including the risk of bleeding and infection. Written and verbal informed con sent was obtained. Appropriate area for thoracentesis was marked under ultrasound guidance with the patient in the uprig ht position. Overlying skin was prepped and draped in the usual sterile fashion and with local anest hetic, a dermatotomy was made with an 11 blade scalpel. A 6 Mexican thoracentesis catheter was placed in the pleural space and fluid was removed. Catheter was then removed and a sterile dressing applie d. There were no immediate complications. The patient tolerated the procedure well and the left the ultrasound suite in stable condition. Chest radiograph is to be obtained. The chest x-ray was obtained demonstrating a large right pneumothorax. The patient was short of breat h. Initially, a 7 Mexican skater catheter was placed into the right pleural space and the pneumothorax improved by at least 50%. The patient was no longer shorter breath. The patient was brought to the f luoroscopy suite and a second 10 Mexican catheter was placed into the right pleural space. The pneumot horax was 80-90% improved with the larger chest tube. The small chest tube was subsequently removed. CONCLUSION: Right thoracentesis with with a subsequent right pneumothorax. This was treated with a 10 Mexican cath eter. The catheter was sutured in place and will need to be followed. J Carlos Diana MD on August 13, 2017 at 16:02 Board Certified Radiologist. This report was verified electronically.
[2017-08-13 16:12] LABS: PLEURAL FLUID HISTIOCYTES 20 %; PLEURAL FLUID LYMPHS 12 %; PLEURAL FLUID MESOTHELIAL 10 %; PLEURAL FLUID POLYS (SEGS) 58 %
--- NOTE | 2017-08-13 16:38 | RADRPT ---
EXAM DATE/TIME: 08/13/2017 15:59 [facility] COMPARISON: No previous studies available for comparison. INDICATIONS : Post chest tube placement. MEDICAL HISTORY : Gastroesophageal reflux disease. Chronic obstructive pulmonary disease. Kidney stones. Asthma. Lung c ancer. SURGICAL HISTORY : Tonsillectomy. Chemotherapy. Radiation therapy. ENCOUNTER: Subsequent ACUITY: 1 day PAIN SCORE: 0/10 LOCATION: Right chest FINDINGS: A 10 Martiniquais right sided chest tube is in place. Initially, there is a persistent at least moderate pn eumothorax on the right. This image was labeled #1. Suction was increased to 40 cc and a second chest x-ray was obtained showing a milder pneumothorax now measures 3.3 cm over the right upper lung. The chest tube is well placed. The suction will be set up to 40 cc. The patient is asymptomatic. CONCLUSION: Right chest tube in good position with a persistent mild to moderate right pneumothorax measuring 3 c m over the apex. The patient is asymptomatic and will be followed. J Carlos Diana MD on August 13, 2017 at 16:34 Board Certified Radiologist. This report was verified electronically.
[2017-08-13 16:51] LABS: TOTAL PROTEIN,PLEURAL FLUID 4.7 GM/DL
[2017-08-13] MEDS: LEVOFLOXACIN 750 MG TAB PO SCH (18:41)
[2017-08-14] VITALS (10 sets, daily range): BP systolic 98–171; BP diastolic 55–80; PULSE 60–126; RESP 20–24; TEMP 96.4–98.3; O2SAT 94–100
[2017-08-14] MEDS: RESP: ALBUTEROL 2.5 MG/IPRATROPIUM 0.5 MG NEB (SCH) NEB ×4 (07:41→20:16)
--- NOTE | 2017-08-14 08:34 | RADRPT ---
EXAM DATE/TIME: 08/14/2017 07:52 [facility] COMPARISON: CHEST PA & LAT, August 13, 2017, 15:59. CHEST EXPIRATION ONLY, August 13, 2017, 14:45. CT PULMO NARY ANGIOGRAM, August 12, 2017, 20:57. CHEST SINGLE AP, October 05, 2014, 3:51. CHEST SINGLE AP, F ebruary 2017, 20:02. CHEST EXPIRATION ONLY, August 13, 2017, 14:17. INDICATIONS : Pneumothorax. MEDICAL HISTORY : Gastroesophageal reflux disease. Chronic obstructive pulmonary disease. Kidney stones. Asthma. Lung c ancer. SURGICAL HISTORY : Tonsillectomy. Chemotherapy. Radiation therapy. ENCOUNTER: Subsequent ACUITY: 2 days PAIN SCORE: 3/10 LOCATION: Right chest FINDINGS: There is persistent moderate right pneumothorax despite thoracostomy tube placement with sonogram in 4 cm separation of apical pleural layers. There is minimal subcutaneous emphysema in the lateral ches t and supraclavicular region. Right hilar prominence and parenchymal retraction is again noted. Mild accentuation of bronchovascular markings on the left felt related to expiratory technique. Cardiac co ntours are grossly stable. CONCLUSION: Persistent right pneumothorax. J Carlos Bunch MD on August 14, 2017 at 8:05 Board Certified Radiologist. This report was verified electronically.
[2017-08-14] MEDS ORDERED: ENOXAPARIN SODIUM 30 MG/0.3 ML SYRINGE SQ SCH (09:00)
[2017-08-14] MEDS: SODIUM CHLORIDE 0.9% FLUSH 10 ML FLUSH IV FLUSH SCH ×2 (09:00→20:15)
[2017-08-14] MEDS ORDERED: ENOXAPARIN SODIUM 40 MG/0.4 ML SYRINGE SQ SCH (09:00)
[2017-08-14] MEDS ORDERED: MIDAZOLAM HCL 2 MG/2 ML VIAL IV ONE (10:00)
--- NOTE | 2017-08-14 10:03 | PD.RAD ---
Post Procedure Progress Note Pre Procedure Diagnosis: (1) Pneumothorax (2) Pleural effusion Post Procedure Diagnosis: (1) Pleural effusion (2) Pneumothorax Procedure Date: Aug 14, 2017 Supervising Radiologist: J Carlos Bunch Proceduralist/Assist: RT Ema(R) Anesthesia: Local Plan of Activity Patient to Unit: Nursing Unit Patient Condition: Fair See PACS Report for procedural detail/treatment Drainage Procedure Procedure 1 Imaging Guidance: Fluoroscopy Side: Right Procedure Type: Chest Tube Non-Tunneled Procedure: Reposition, Exchange [place] Citizen: 16 Drainage: Pleurovac J Carlos Bunch MD Aug 14, 2017 10:03
--- NOTE | 2017-08-14 10:18 | RADRPT ---
EXAM DATE/TIME: 08/14/2017 10:08 [facility] COMPARISON: CHEST EXPIRATION ONLY, August 13, 2017, 14:45. INDICATIONS : Post chest tube placement. MEDICAL HISTORY : Gastroesophageal reflux disease. Chronic obstructive pulmonary disease. Kidney stones. Asthma. Lung c ancer. SURGICAL HISTORY : Tonsillectomy. Chemotherapy. Radiation therapy. ENCOUNTER: Subsequent ACUITY: 1 day PAIN SCORE: 4/10 LOCATION: Right chest FINDINGS: A single frontal expiratory view of the chest was performed. A right-sided chest tube has been placed with its tip overlying the apex. Marked reduction in the pneumothorax seen previously. No residual p leural air is identified. There is scarring in the right upper lobe Mediastinal structures are in the midline. Aorta is quite tortuous The cardio-mediastinal contours and bronchopulmonary markings are unremarkable for an expiratory exam . Osseous structures are intact. CONCLUSION: Chest tube overlies the right lung apex. Complete removal of the previous pneumothorax. Aorta is quit e tortuous. Jorge Steinberg MD on August 14, 2017 at 10:16 Board Certified Radiologist. This report was verified electronically.
[2017-08-14] MEDS: LORazepam 1 MG TAB PO SCH ×3 (10:34→18:20)
[2017-08-14] MEDS: UMECLIDINIUM 62.5 MCG/VILANTEROL 25 MCG INHALER INH SCH (10:34)
[2017-08-14] MEDS: ENOXAPARIN SODIUM 30 MG/0.3 ML SYRINGE SQ SCH (10:34)
[2017-08-14] MEDS: ASPIRIN EC 81 MG TABEC PO SCH (10:34)
[2017-08-14] MEDS ORDERED: LEVOFLOXACIN 750 MG TAB PO SCH (11:00)
--- NOTE | 2017-08-14 11:05 | RADRPT ---
EXAM DATE/TIME: 08/14/2017 09:10 [facility] COMPARISON: No previous studies available for comparison. INDICATIONS : Patient presents with chest tube in need of resizing due to recurrent pneumothorax. MEDICAL HISTORY : LLE PAD COPD BPH Chronic LE pedal edema Right lung cancer Anxiety Osteoarthritis Right UE basal cell carcinoma of skin SURGICAL HISTORY : Skin cancer removal Bilateral hip sx Right knee sx ENCOUNTER: Initial ACUITY: 1 day PAIN SCORE: 0/10 LOCATION: N/A FLUORO TIME: 5.4 minutes IMAGE SERIES: 2 SEDATION TIME: 30 minutes MEDICATION(S): 1.) 50 mcg fentanyl (Sublimaze) IV DEVICE(S): 1.) 16 Lao non-locking catheter [place] MPD Large capacity drainage catheter PROCEDURE : 1. Fluoroscopically guided chest tube exchange. 2. Conscious sedation with continuous EKG and oximetry monitoring. The risks, benefits and alternatives to the procedure were explained and verbal and written consent w as obtained. The site was prepped in sterile fashion. Full sterile technique was used, including ca p, mask, sterile gloves and gown and a large sterile sheet. Hand hygiene and 2% chlorhexidine and/or betadine/alcohol prep was utilized per protocol for cutaneous antisepsis. The skin and subcutaneous tissues were infiltrated with local anesthetic solution. With fluoroscopic guidance the previously placed chest tube was exchanged for the prescribed catheter . Post procedure imaging demonstrates satisfactory position of the tube. The catheter was sutured i n place and a Percu-Stay was applied. Conscious sedation was performed with the prescribed dosages and duration as above in the presence of an independent trained radiology nurse to assist in the monitoring of the patient. EKG and oximetry remained stable throughout the procedure. The patient tolerated the procedure well and there were no complications. The patient was sent to post anesthesia recovery in stable condition. CONCLUSION: Uncomplicated chest tube exchange as above. J Carlos Bunch MD on August 14, 2017 at 11:03 Board Certified Radiologist. This report was verified electronically.
--- NOTE | 2017-08-14 11:48 | ECHRPT ---
Indication: Shortness of breath CONCLUSIONS The left ventricular systolic function is low normal with an estimated ejection fraction in the rang e of 50- 55%. Wall thickness is normal. Normal left ventricular size. BP: / HR: Rhythm: Other MEASUREMENTS (Male / Female) Normal Values Technical Quality:Technically difficult study 2D ECHO LV Diastolic Diameter PLAX 3.5 cm 4.2 - 5.9 / 3.9 - 5.3 cm LV Systolic Diameter PLAX 2.7 cm IVS Diastolic Thickness 0.9 cm 0.6 - 1.0 / 0.6 - 0.9 cm LVPW Diastolic Thickness 0.9 cm 0.6 - 1.0 / 0.6 - 0.9 cm LV Relative Wall Thickness 0.5 LVOT Diameter 2.0 cm M-MODE Aortic Root Diameter MM 2.7 cm LA Systolic Diameter MM 2.9 cm LA Ao Ratio MM 1.1 AV Cusp Separation MM 2.0 cm DOPPLER AV Peak Velocity 96.4 cm/s AV Peak Gradient 3.7 mmHg LVOT Peak Velocity 65.6 cm/s LVOT Peak Gradient 1.7 mmHg AV Area Cont Eq pk 2.1 cm FINDINGS LEFT VENTRICLE The left ventricular systolic function is low normal with an estimated ejection fraction in the rang e of 50- 55%. Wall thickness is normal. Normal left ventricular size. RIGHT VENTRICLE Normal right ventricular size and systolic function. LEFT ATRIUM The left atrial size is normal. RIGHT ATRIUM The right atrial size is normal. ATRIAL SEPTUM Normal atrial septal thickness without atrial level shunting by limited color doppler interrogation. AORTA The aortic root and proximal ascending aorta are normal in size on limited imaging. MITRAL VALVE Structurally normal mitral valve. No mitral valve stenosis or regurgitation. AORTIC VALVE Trileaflet aortic valve. No aortic valve stenosis or regurgitation. TRICUSPID VALVE Structurally normal tricuspid valve. No tricuspid valve stenosis or regurgitation. PULMONARY VALVE The pulmonary valve is not well visualized. VESSELS The inferior vena cava is normal in size. PERICARDIUM No pericardial effusion. Charli Dillon MD, FACC, [facility] (Electronically Signed) Final Date:14 August 2017 11:47
--- NOTE | 2017-08-14 13:44 | HHI.PR ---
Subjective Remarks Patient seen and examined today for follow-up on pleural effusion, pneumonia, shortness of breath. Patient is breathing much better. He had to have a chest tube replacement today due to pneumothorax. Pulmonology is following the patient. Patient denies any new complaints or any concerns at this time. Objective Vitals Vital Signs Date Time Temp Pulse Resp B/P (MAP) Pulse Ox O2 Delivery O2 Flow Rate FiO2 08/14/17 12:00 97.0 91 20 134/60 (84) 94 08/14/17 07:59 97.7 99 20 98/55 (69) 94 08/14/17 07:42 95 21 08/14/17 04:00 98.3 91 20 113/69 (84) 94 08/14/17 02:39 81 08/14/17 00:00 97.1 98 24 105/64 (78) 94 08/13/17 21:55 100 Nasal Cannula 2.00 08/13/17 20:00 96.3 88 24 95/56 (69) 96 08/13/17 16:55 97.0 86 22 103/62 (76) 96 08/13/17 14:00 95.5 113 24 127/71 (89) 87 I/O 08/13/17 08/13/17 08/13/17 08/14/17 08/14/17 08/14/17 07:00 15:00 23:00 07:00 15:00 23:00 Intake Total 370 ml 0 ml 550 ml Output Total 220 ml Balance 370 ml 0 ml 550 ml -220 ml Intake Oral 120 ml 0 ml 550 ml IV Total 250 ml Output Chest Tube Drainage Total 220 ml # Voids 1 1 # Bowel Movements 0 Result Diagram: 08/13/17 0830 08/13/17 0830 Objective Remarks GENERAL: Well-developed, frail and cachectic, in no acute distress. alert and orientated HEENT: Head is normocephalic without any lesions or masses noted. Facial features are symmetric. Eyes: Extraocular muscles are intact. Conjunctivae were clear. NECK: Supple without any masses. Trachea midline no deviation. No JVD, CARDIAC: Regular rhythm, regular rate. S1/S2 are heard. No murmurs gallops or rubs. LUNGS: Clear to auscultation bilaterally. No wheeze, rhonchi or rales. No use of accessory muscles on inspiration or expiration. ABDOMEN: Soft, nontender. Nondistended. Bowel sounds heard in all 4 quadrants. No organomegaly or masses. Negative rebound, negative guarding EXTREMITIES: No edema, pulses are equal bilaterally. No cyanosis or clubbing NEUROLOGY: Mood and affect appear appropriate. Cranial nerves II through XII grossly intact. Moving all extremities, speech is clear RIGHT UPPER EXTREMITY: Surgical incision site appears to be healed quite well. Sutures are in place without any signs of infection. Okay to remove sutures Urinary Catheter: No Vascular Central Line Catheter: No A/P Assessment and Plan Moderate size right pleural effusion with presenting symptom of shortness of breath Status post ultrasound-guided thoracentesis with 1100 cc of fluid Residual pneumothorax status post chest tube placement Radiology managing chest tube Fluid appears to be transudative Patient with improved respiratory status status post thoracentesis Echocardiogram shows ejection fraction 50-55% with left ventricular function is low normal Chronic obstructive pulmonary disease Continue O2 supplementation maintain O2 sats greater than 92% Duo nebs every 4 hours and every 2 hours as needed Levaquin 500 mg by mouth daily Dr. gilbert his hotel or motel receptionist has been consulted DVT prevention Subcutaneous Lovenox Discharge Planning Discharge planning once pneumothorax resolved Darryn Whittington Aug 14, 2017 13:44
[2017-08-14] MEDS: LEVOFLOXACIN 750 MG TAB PO SCH (15:11)
--- NOTE | 2017-08-14 17:37 | MB ---
cc: Bhupinder Jiménez MD DATE OF CONSULT: 08/14/2017 HISTORY OF PRESENT ILLNESS: Mr. Osullivan is an 86-year-old white male who presented 5 years ago with advanced lung cancer. He was not a surgical candidate. He was treated with radiation and chemotherapy and has been followed by Dr. Bennett since then without obvious recurrence. He presented to the Emergency Room on 08/13 with a cough, congestion, increasing shortness of breath and was noted to have a pleural effusion, was admitted for probable exacerbation of COPD, possible recurrent malignancy. Pleural fluid was sampled by diagnostic thoracentesis on 08/13 and the culture on that was negative. There were only 670 white cells, predominantly neutrophils and lymphocytes and histiocytes, exudative with a total protein of 4.7 and an LDH of 99. Cytology is pending. The patient had a pneumothorax after the thoracentesis, so a chest tube was inserted. That had to be changed because it was residual persistent pneumothorax. Chest x-ray today now reveals complete reexpansion of the lung. The patient states that he is feeling better. The patient is on oral Levaquin. He has received aerosolized bronchodilators with relief of dyspnea. He was a former smoker, 40-50 pack years, although he quit smoking many years ago. No significant alcohol use. Lives independently. Additional past history, BPH, peripheral arterial disease, osteoarthritis, bilateral hip surgeries and knee surgeries. REVIEW OF SYSTEMS: He has had cough with minimal congestion, no purulent sputum or hemoptysis. He was more short of breath; that has been relieved. No chest pain. No increased swelling in his legs. No significant cardiovascular history. PHYSICAL EXAMINATION: GENERAL: A thin white male, no distress. VITAL SIGNS: Temperature 97 degrees, pulse is 80, respirations are 18-20, O2 sat on 2 liters is 94%, blood pressure 120/60. HEENT: Sclerae anicteric. NECK: Neck veins are flat. No adenopathy of the neck or supraclavicular region. CHEST: Scattered congestion with basilar rales. No rhonchi. HEART: Regular rhythm, no harsh murmur. EXTREMITIES: No significant edema or cyanosis. DIAGNOSTIC STUDIES: Chest x-ray now reveals reexpansion of the right lung with tube in place. Some right hilar prominence with retraction, probably scarring. Blood cultures have been negative. Influenza A and B negative. Fluid culture negative. White count is 12.3. BUN and creatinine normal. DISCUSSION: Mr. Osullivan presents with a rather long history of lung cancer, had not had any evidence of recurrence to date since 2012. Pleural fluid has been sent for cytology; that is pending. Underlying chronic obstructive pulmonary as well with some bullous changes in his scan, stable on aerosolized bronchodilators. Pneumothorax after the thoracentesis, lung is now reexpanded. Radiology is monitoring the chest tube, which could be removed once the pneumothorax has been stabilized. Further diagnostic and/or therapeutic intervention will depend on his ongoing clinical course. R. MD ROBBY Mack/CHARMAINE , 04:47 PM , 05:35 PM
--- NOTE | 2017-08-14 17:53 | RADRPT ---
EXAM DATE/TIME: 08/13/2017 14:20 [facility] COMPARISON: No previous studies available for comparison. INDICATIONS : Pneumothorax. MEDICAL HISTORY : Gastroesophageal reflux disease. Chronic obstructive pulmonary disease. Kidney stones. Asthma. Lung c ancer. SURGICAL HISTORY : pulmonary disease. Kidney stones. Asthma. Lung cancer. ENCOUNTER: Subsequent ACUITY: 1 day PAIN SCORE: 3/10 Right chest FLUORO TIME: 2 minutes IMAGE SERIES: 1 0 minutes 0 cc DEVICE(S): 1.) 10 Faroese non-locking catheter CLARENCE PROCEDURE : 1. Fluoroscopically guided chest tube placement. The risks, benefits and alternatives to the procedure were explained and verbal and written consent w as obtained. The site was prepped in sterile fashion. Full sterile technique was used, including ca p, mask, sterile gloves and gown and a large sterile sheet. Hand hygiene and 2% chlorhexidine and/or betadine/alcohol prep was utilized per protocol for cutaneous antisepsis. The skin and subcutaneous tissues were infiltrated with local anesthetic solution. With fluoroscopic guidance the chest was punctured between the first and second interspace and the pr escribed catheter was placed in the lung apex. Wall suction was applied. Post procedure images demon strate satisfactory position of the tube. The catheter was sutured in place and a Percu-Stay was moustapha lied. Conscious sedation was performed with the prescribed dosages and duration as above in the presence of an independent trained radiology nurse to assist in the monitoring of the patient. EKG and oximetry remained stable throughout the procedure. The patient tolerated the procedure well and there were n o complications. The patient was sent to post anesthesia recovery in stable condition. CONCLUSION: Uncomplicated chest tube placement as above. There was a mild residual pneumothorax which will be followed. J Carlos Diana MD on August 14, 2017 at 17:50 Board Certified Radiologist. This report was verified electronically.
[2017-08-15] VITALS (12 sets, daily range): BP systolic 100–136; BP diastolic 59–76; PULSE 54–126; RESP 16–24; TEMP 96–98.3; O2SAT 93–100
--- NOTE | 2017-08-15 06:06 | RADRPT ---
EXAM DATE/TIME: 08/15/2017 05:29 [facility] COMPARISON: CHEST SINGLE AP, August 12, 2017, 20:02. CHEST EXPIRATION ONLY, August 13, 2017, 14:17. CHEST E XPIRATION ONLY, August 13, 2017, 14:45. CHEST SINGLE AP, August 14, 2017, 7:52. CHEST EXPIRATION O NLY, August 14, 2017, 10:08. INDICATIONS : Evaluate for right pneumothorax MEDICAL HISTORY : Gastroesophageal reflux disease. Chronic obstructive pulmonary disease. Kidney stones. Asthma. Lung c ancer. SURGICAL HISTORY : Tonsillectomy. Chemotherapy. Radiation therapy. ENCOUNTER: Subsequent ACUITY: 2 days PAIN SCORE: 0/10 LOCATION: Right chest FINDINGS: The large bore chest catheter is changed in position and is now projected in the medial right mid oren st. There has been reaccumulation of the right pneumothorax, no measuring in excess of 9 cm superior /inferior extent with associated shift of the mediastinum towards the left. The left lung is clear. The heart is normal in size. Significant increased amount of subcutaneous emphysema about the right upper chest. CONCLUSION: Reaccumulation of a large right pneumothorax with mediastinal shift towards the left; chest tube posi tion has also changed to the medial right mid chest. Nayan Mckeon MD on August 15, 2017 at 6:00 Board Certified Radiologist. This report was verified electronically.
[2017-08-15] MEDS: RESP: ALBUTEROL 2.5 MG/IPRATROPIUM 0.5 MG NEB (SCH) NEB ×4 (07:48→20:00)
[2017-08-15] MEDS: UMECLIDINIUM 62.5 MCG/VILANTEROL 25 MCG INHALER INH SCH (08:23)
[2017-08-15] MEDS: ASPIRIN EC 81 MG TABEC PO SCH (08:23)
[2017-08-15] MEDS: LORazepam 1 MG TAB PO SCH ×3 (08:23→17:20)
[2017-08-15] MEDS: ENOXAPARIN SODIUM 30 MG/0.3 ML SYRINGE SQ SCH ×2 (08:23→09:00)
[2017-08-15] MEDS ORDERED: METH500T3 PO (08:44)
[2017-08-15] MEDS ORDERED: NAPR500T2 PO (08:44)
[2017-08-15] MEDS ORDERED: AMLO10 PO (08:44)
--- NOTE | 2017-08-15 10:02 | HHI.PR ---
Subjective Remarks Patient seen and examined today for follow-up on pneumothorax. Patient states that he was short of breath last night. Repeat x-ray does indicate significant pneumothorax. Tube needs to be repositioned. Patient be transferred to the main for repositioning and management. Objective Vitals Vital Signs Date Time Temp Pulse Resp B/P (MAP) Pulse Ox O2 Delivery O2 Flow Rate FiO2 08/15/17 08:00 96.8 101 24 122/59 (80) 97 08/15/17 07:48 94 Nasal Cannula 2.00 08/15/17 04:00 98.2 102 22 101/59 (73) 99 08/15/17 00:00 96.0 126 20 101/73 (82) 99 08/14/17 20:16 99 Nasal Cannula 2.00 08/14/17 20:00 97.5 126 20 131/80 (97) 95 08/14/17 15:39 97.2 99 20 120/62 (81) 94 08/14/17 15:00 74 08/14/17 12:00 97.0 91 20 134/60 (84) 94 I/O 08/14/17 08/14/17 08/14/17 08/15/17 08/15/17 08/15/17 06:59 14:59 22:59 06:59 14:59 22:59 Intake Total 960 ml Output Total 220 ml 450 ml Balance -220 ml 960 ml -450 ml Intake Oral 960 ml Output Urine Total 150 ml Chest Tube Drainage Total 220 ml 300 ml Result Diagram: 08/13/1730 08/13/17 0830 Objective Remarks GENERAL: Well-developed, frail and cachectic, in no acute distress. alert and orientated HEENT: Head is normocephalic without any lesions or masses noted. Facial features are symmetric. Eyes: Extraocular muscles are intact. Conjunctivae were clear. NECK: Supple without any masses. Trachea midline no deviation. No JVD, CARDIAC: Regular rhythm, regular rate. S1/S2 are heard. No murmurs gallops or rubs. LUNGS: Decreased breath sounds in right upper lung. No wheeze, rhonchi or rales. No use of accessory muscles on inspiration or expiration. ABDOMEN: Soft, nontender. Nondistended. Bowel sounds heard in all 4 quadrants. No organomegaly or masses. Negative rebound, negative guarding EXTREMITIES: No edema, pulses are equal bilaterally. No cyanosis or clubbing NEUROLOGY: Mood and affect appear appropriate. Cranial nerves II through XII grossly intact. Moving all extremities, speech is clear RIGHT UPPER EXTREMITY: Surgical incision site appears to be healed quite well. Sutures are in place without any signs of infection. Urinary Catheter: No Vascular Central Line Catheter: No A/P Assessment and Plan Moderate size right pleural effusion with presenting symptom of shortness of breath, persistent Status post ultrasound-guided thoracentesis with 1100 cc of fluid Residual pneumothorax status post chest tube placement Radiology managing chest tube, will need repositioning Fluid appears to be transudative Echocardiogram shows ejection fraction 50-55% with left ventricular function is low normal Chronic obstructive pulmonary disease Continue O2 supplementation maintain O2 sats greater than 92% Duo nebs every 4 hours and every 2 hours as needed Levaquin 500 mg by mouth daily Dr. gilbert his belt splicer has been consulted DVT prevention Subcutaneous Lovenox Discharge Planning Discharge planning once pneumothorax resolved Darryn Whittington Aug 15, 2017 10:02
[2017-08-15] MEDS ORDERED: MIDAZOLAM HCL 5 MG/5 ML VIAL ONE (12:18)
[2017-08-15] MEDS ORDERED: fentaNYL CITRATE 250 MCG/5 ML AMP ONE (12:19)
[2017-08-15 12:22] LABS: AMYLASE BODY FLUID 76 U/L; AMYLASE BODY FLUID TYPE PLEURAL
--- NOTE | 2017-08-15 13:41 | RADRPT ---
EXAM DATE/TIME: 08/15/2017 12:00 [facility] COMPARISON: No previous studies available for comparison. INDICATIONS : Patient has recurring pneumothorax in need of a chest tube. MEDICAL HISTORY : COPD BPH Anxiety Irregular Heart Rate SURGICAL HISTORY : Skin cancer removal Bilateral hip surgery Right knee surgery ENCOUNTER: Subsequent ACUITY: 3 days PAIN SCORE: 0/10 FLUORO TIME: 2.5 minutes IMAGE SERIES: 1 SEDATION TIME: 15 minutes MEDICATION(S): 1.) 1 mg midazolam (Versed) IV 2.) 50 mcg fentanyl (Sublimaze) IV DEVICE(S): 1.) 12 Hungarian locking catheter PROCEDURE : 1. Fluoroscopically guided chest tube placement. 2. Conscious sedation with continuous EKG and oximetry monitoring. The risks, benefits and alternatives to the procedure were explained and verbal and written consent w as obtained. The site was prepped in sterile fashion. Full sterile technique was used, including ca p, mask, sterile gloves and gown and a large sterile sheet. Hand hygiene and 2% chlorhexidine and/or betadine/alcohol prep was utilized per protocol for cutaneous antisepsis. The skin and subcutaneous tissues were infiltrated with local anesthetic solution. With fluoroscopic guidance the chest was punctured between the first and second interspace and the pr escribed catheter was placed in the lung apex. Wall suction was applied. Post procedure images demon strate satisfactory position of the tube. The catheter was sutured in place and a Percu-Stay was moustapha lied. After confirmation of good reexpansion of the lung, the previously existing right thoracostomy tube w as removed. The site was dressed with Vaseline gauze. Conscious sedation was performed with the prescribed dosages and duration as above in the presence of an independent trained radiology nurse to assist in the monitoring of the patient. EKG and oximetry remained stable throughout the procedure. The patient tolerated the procedure well and there were n o complications. The patient was sent to post anesthesia recovery in stable condition. CONCLUSION: Uncomplicated chest tube placement as above. J Carlos Bunch MD on August 15, 2017 at 13:38 Board Certified Radiologist. This report was verified electronically.
--- NOTE | 2017-08-15 14:29 | RADRPT ---
EXAM DATE/TIME: 08/15/2017 13:27 [facility] COMPARISON: CHEST EXPIRATION ONLY, August 15, 2017, 5:29. INDICATIONS : S/p chest tube placement on suction MEDICAL HISTORY : Gastroesophageal reflux disease. Chronic obstructive pulmonary disease. asthma, lung cancer SURGICAL HISTORY : chemotherapy, radiation therapy ENCOUNTER: Initial ACUITY: 4 - 6 days PAIN SCORE: 0/10 LOCATION: Bilateral chest FINDINGS: Interval placement of a new right apical chest tube with tip at the apex. There is reexpansion of the right lung with very subtle apical pneumothorax. Persistent right chest wall subcutaneous emphysema. Linear opacities in the right upper lobe consistent with atelectasis/scarring. Redemonstration of ri ght hilar prominence. Cardiac silhouette is within normal limits. Remainder of the exam is unchanged. CONCLUSION: 1. New right apical chest tube with near interval resolution of right-sided pneumothorax. Very subtle residual right apical pneumothorax. Jonathan Galeas MD on August 15, 2017 at 14:27 Board Certified Radiologist. This report was verified electronically.
[2017-08-15] MEDS: LEVOFLOXACIN 500 MG TAB PO SCH (16:00)
--- NOTE | 2017-08-15 18:46 | RADRPT ---
EXAM DATE/TIME: 08/15/2017 17:40 [facility] COMPARISON: CHEST SINGLE AP, August 14, 2017, 7:52. INDICATIONS : Evaluate for pneumothorax MEDICAL HISTORY : Carcinoma, lung. Gastroesophageal reflux disease. Chronic obstructive pulmonary disease. asthma SURGICAL HISTORY : chemotherapy, radiation therapy ENCOUNTER: Subsequent ACUITY: 4 - 6 days PAIN SCORE: 0/10 LOCATION: Bilateral chest FINDINGS: There has been interval improvement of the right sided pneumothorax which now measures 12 mm at the r ight apex. Right chest tube remains in good position. There is slight interval increase in subcutaneo us emphysema within the right chest wall. Linear density is noted within the right upper lung field. CONCLUSION: 1. Interval improvement of the right-sided pneumothorax which now measures 12 mm at the right apex. 2. Slight interval increase in subcutaneous emphysema within the right chest wall. Sj Smyth MD on August 15, 2017 at 18:43 Board Certified Radiologist. This report was verified electronically.
[2017-08-15] MEDS: SODIUM CHLORIDE 0.9% FLUSH 10 ML FLUSH IV FLUSH SCH (20:56)
[2017-08-16] VITALS (8 sets, daily range): BP systolic 111–131; BP diastolic 58–79; PULSE 73–116; RESP 16–21; TEMP 97.1–98; O2SAT 98–99
[2017-08-16] MEDS ORDERED: LORazepam 1 MG TAB PO ONE (02:45)
--- NOTE | 2017-08-16 05:16 | RADRPT ---
EXAM DATE/TIME: 08/16/2017 04:45 [facility] COMPARISON: CHEST SINGLE AP, August 15, 2017, 17:40. CHEST EXPIRATION ONLY, August 15, 2017, 13:27. INDICATIONS : Pneumothorax. MEDICAL HISTORY : Carcinoma, lung. Gastroesophageal reflux disease. Chronic obstructive pulmonary disease. asthma SURGICAL HISTORY : chemotherapy, radiation therapy ENCOUNTER: Subsequent ACUITY: 4 - 6 days PAIN SCORE: 0/10 LOCATION: Bilateral chest FINDINGS: Right chest catheter remains projected at the apex. No residual pneumothorax seen. Stable subcutane ous emphysema about the right upper chest. The heart is enlarged and the descending thoracic aorta i s tortuous. The left lung is clear. CONCLUSION: No definite residual pneumothorax at the right apex adjacent chest catheter. Nayan Mckeon MD on August 16, 2017 at 5:14 Board Certified Radiologist. This report was verified electronically.
[2017-08-16] MEDS: ASPIRIN EC 81 MG TABEC PO SCH (09:12)
[2017-08-16] MEDS: LORazepam 1 MG TAB PO SCH ×3 (09:12→23:04)
[2017-08-16] MEDS: ENOXAPARIN SODIUM 30 MG/0.3 ML SYRINGE SQ SCH (09:17)
[2017-08-16] MEDS: RESP: ALBUTEROL 2.5 MG/IPRATROPIUM 0.5 MG NEB (SCH) NEB ×4 (09:18→20:16)
--- NOTE | 2017-08-16 11:03 | PD.RAD ---
Radiology Note Pt. afebrile with stable vitals. O2 sat 99% on 3L NC. CXR today shows no PTX cytology on pleural fluid was negative for malignant cells Would continue chest tube pleur-evac suction at 40cm through the and re- assess Friday for possible removal. J Carlos Bunch MD Aug 16, 2017 11:03
[2017-08-16] MEDS: CETIRIZINE HCL 10 MG TAB PO SCH (14:30)
--- NOTE | 2017-08-16 14:34 | HHI.PR ---
Subjective Remarks The patient was resting comfortably in bed. He had a friend at the bedside. He said he spoke with the lung doctor. He was eating lunch, and he stated that was the first meal he has had in a while. No acute concerns at this time. Objective Vitals Vital Signs Date Time Temp Pulse Resp B/P (MAP) Pulse Ox O2 Delivery O2 Flow Rate FiO2 08/16/17 09:22 99 Nasal Cannula 3.00 08/16/17 08:00 97.1 86 16 131/79 (96) 98 08/16/17 04:00 97.6 88 17 122/58 (79) 99 08/16/17 02:30 99 Nasal Cannula 3.00 08/16/17 00:27 98.0 73 20 128/58 (81) 99 08/15/17 20:00 98.0 99 16 108/59 (75) 100 08/15/17 20:00 98 Nasal Cannula 3.00 08/15/17 17:30 97.7 109 16 136/63 (87) 98 08/15/17 16:30 72 20 110/59 (76) 99 08/15/17 14:20 69 21 110/63 (79) 98 I/O 08/15/17 08/15/17 08/15/17 08/16/17 08/16/17 08/16/17 07:00 15:00 23:00 07:00 15:00 23:00 Intake Total 360 ml Output Total 450 ml 60 ml 668 ml Balance -450 ml -60 ml -308 ml Intake Oral 360 ml Output Urine Total 150 ml 600 ml Chest Tube Drainage Total 300 ml 60 ml 68 ml Result Diagram: 08/13/1730 08/13/1730 Imaging Last Impressions Chest X-Ray 08/16/17 0000 Signed Impressions: Service Date/Time: Wednesday, August 16, 2017 04:45 - CONCLUSION: No definite residual pneumothorax at the right apex adjacent chest catheter. Nayan Mckeon MD Chest Tube Insertion 08/15/17 0000 Signed Impressions: Service Date/Time: Tuesday, August 15, 2017 12:00 - CONCLUSION: Uncomplicated chest tube placement as above. J Carlos Bunch MD Chest Tube Change 08/14/17 0000 Signed Impressions: Service Date/Time: August 09:10 - CONCLUSION: Uncomplicated chest tube exchange as above. J Carlos Bunch MD Thoracentesis Ultrasound 08/13/17 0000 Signed Impressions: Service Date/Time: Sunday, August 13, 2017 11:45 - CONCLUSION: Right thoracentesis with with a subsequent right pneumothorax. This was treated with a 10 Turkmen catheter. The catheter was sutured in place and will need to be followed. J Carlos Diana MD CT Angiography 08/12/17 1926 Signed Impressions: Service Date/Time: Saturday, August 12, 2017 20:57 - CONCLUSION: 1. No evidence of pulmonary embolism. 2. Right pleural effusion Charly Medrano MD Objective Remarks GENERAL: Resting comfortably. HEENT: Head is normocephalic without any lesions or masses noted. Facial features are symmetric. Eyes: Extraocular muscles are intact. Conjunctivae were clear. NECK: Supple without any masses. Trachea midline no deviation. No JVD, CARDIAC: Regular rhythm, regular rate. S1/S2 are heard. No murmurs gallops or rubs. LUNGS: Decreased breath sounds in right upper lung. No wheeze, rhonchi or rales. No use of accessory muscles on inspiration or expiration. ABDOMEN: Soft, nontender. Nondistended. Bowel sounds heard in all 4 quadrants. No organomegaly or masses. Negative rebound or guarding. EXTREMITIES: No edema, pulses are equal bilaterally. No cyanosis or clubbing NEUROLOGY: Mood and affect appear appropriate. Cranial nerves II through XII grossly intact. Moving all extremities, speech is clear. RIGHT UPPER EXTREMITY: Surgical incision site appears to be healed quite well. Sutures are in place without any signs of infection. Procedures Chest tube placement Medications and IVs Current Medications Medications (Trade) Dose Ordered Sig/Donny Route Start Time Stop Time Status Last Admin (NS Flush) 2 ml UNSCH PRN IV FLUSH 08/12/17 22:30 (NS Flush) 2 ml BID IV FLUSH 08/13/17 09:00 08/15/17 20:56 (Narcan Inj) 0.4 mg UNSCH PRN IV PUSH 08/12/17 22:30 (Duoneb Neb) 1 ampule Q2HR NEB PRN NEB 08/12/17 22:30 (Duoneb Neb) 1 ampule Q4HR WHILE AWAKE NEB NEB 08/13/17 12:00 08/16/17 12:20 (Ecotrin Ec) 81 mg DAILY PO 08/14/17 09:00 08/16/17 09:12 (Lovenox Inj) 30 mg DAILY SQ 08/14/17 09:00 08/16/17 09:17 (Levaquin) 500 mg Q24H PO 08/15/17 16:00 08/15/17 16:00 (Ativan) 1 mg DAILY@0800,1800,2300 PO 08/16/17 18:00 A/P Assessment and Plan Moderate size right pleural effusion/ Pneumothorax Status post ultrasound-guided thoracentesis with 1100 cc of fluid Residual pneumothorax status post chest tube placement Radiology managing chest tube. Fluid appears to be transudative Echocardiogram shows ejection fraction 50-55% with left ventricular function is low normal - CXR in AM. - PT/ OT. Chronic obstructive pulmonary disease Continue O2 supplementation maintain O2 sats greater than 92% Duo nebs every 4 hours and every 2 hours as needed Levaquin 500 mg by mouth daily Dr. Jiménez his acting manager has been consulted. Appreciate recommendations. Hyperglycemia Noted on BMP. - check A1c in AM. Renal insufficiency Appears chronic. - avoid nephrotoxins. DVT prevention Subcutaneous Lovenox Claude Gaffney DO Aug 16, 2017 14:34
[2017-08-16] MEDS: LEVOFLOXACIN 500 MG TAB PO SCH (15:34)
--- NOTE | 2017-08-16 16:31 | HHI.PR ---
Subjective Remarks 86 YOWM with ca lung, COPD, PTX has repositioning of rt Chest tube Breathing betetr Has air leak Objective Vital Signs Vital Signs Date Time Temp Pulse Resp B/P (MAP) Pulse Ox O2 Delivery O2 Flow Rate FiO2 08/16/17 09:22 99 Nasal Cannula 3.00 08/16/17 08:00 97.1 86 16 131/79 (96) 98 08/16/17 04:00 97.6 88 17 122/58 (79) 99 08/16/17 02:30 99 Nasal Cannula 3.00 08/16/17 00:27 98.0 73 20 128/58 (81) 99 08/15/17 20:00 98.0 99 16 108/59 (75) 100 08/15/17 20:00 98 Nasal Cannula 3.00 08/15/17 17:30 97.7 109 16 136/63 (87) 98 08/15/17 16:30 72 20 110/59 (76) 99 I/O 08/15/17 08/15/17 08/15/17 08/16/17 08/16/17 08/16/17 07:00 15:00 23:00 07:00 15:00 23:00 Intake Total 360 ml Output Total 450 ml 60 ml 668 ml Balance -450 ml -60 ml -308 ml Intake Oral 360 ml Output Urine Total 150 ml 600 ml Chest Tube Drainage Total 300 ml 60 ml 68 ml Result Diagram: 08/13/1782908/13/17 0830 Objective Remarks GENERAL: Frail elderly WM, mild sob SKIN: Warm and dry. HEAD: Normocephalic. EYES: No scleral icterus. No injection or drainage. NECK: Supple, trachea midline. No JVD or lymphadenopathy. CARDIOVASCULAR: Regular rate and rhythm without murmurs, gallops, or rubs. RESPIRATORY: Breath sounds equal bilaterally. No accessory muscle use. Rt chest tube with air leak GASTROINTESTINAL: Abdomen soft, non-tender, nondistended. MUSCULOSKELETAL: No cyanosis, or edema. BACK: Nontender without obvious deformity. No CVA tenderness. A/P Assessment and Plan Right PTX, s/p chest tube, radiology monitoring COPD H/O ca lung Anxiety PLAN: Chest tube to suction Supplement 02 Aerosol nebs Cont Abx Valdemar Gonzalez MD Aug 16, 2017 16:31
[2017-08-16] MEDS: SODIUM CHLORIDE 0.9% FLUSH 10 ML FLUSH IV FLUSH SCH ×2 (22:12→22:17)
[2017-08-16] MEDS: METHOCARBAMOL 500 MG TAB PO PRN (23:10)
[2017-08-17] VITALS (8 sets, daily range): BP systolic 96–128; BP diastolic 52–61; PULSE 74–114; RESP 18–21; TEMP 97–97.8; O2SAT 96–100
--- NOTE | 2017-08-17 05:37 | RADRPT ---
EXAM DATE/TIME: 08/17/2017 04:46 [facility] COMPARISON: CHEST EXPIRATION ONLY, August 16, 2017, 4:45. CHEST SINGLE AP, August 15, 2017, 17:40. INDICATIONS : Pneumothorax. MEDICAL HISTORY : Carcinoma, lung. Gastroesophageal reflux disease. Chronic obstructive pulmonary disease. asthma SURGICAL HISTORY : Chemotherapy. Radiation therapy. ENCOUNTER: Subsequent ACUITY: 4 - 6 days PAIN SCORE: 0/10 LOCATION: Bilateral chest FINDINGS: Lateral right chest is not included in the [id number] on this exam as the right chest catheter rem ains coiled at the apex. No residual pneumothorax seen on this semierect film. Persistent opacities in the medial and upper right lung. The left lung is clear. Tortuosity of the descending thoracic aorta, stable. Stable subcutaneous emphysema in the region of the right shoulder. CONCLUSION: Chest catheter stable in position at the right apex. No definite evidence of residual pneumothorax. Nayan Mckeon MD on August 17, 2017 at 5:35 Board Certified Radiologist. This report was verified electronically.
[2017-08-17] MEDS: RESP: ALBUTEROL 2.5 MG/IPRATROPIUM 0.5 MG NEB (SCH) NEB ×4 (08:05→19:18)
[2017-08-17 08:46] LABS: HEMOGLOBIN 13.2 GM/DL (13.0-17.0); MEAN CELL VOLUME 97.5 FL (80.0-100.0); MEAN CORPUSCULAR HGB CONC 33.8 % (32.0-36.0); MEAN PLATELET VOLUME 10.7 FL (7.0-11.0); PLATELET COUNT 142 TH/MM3 (150-450); WHITE BLOOD COUNT 8.8 TH/MM3 (4.0-11.0)
[2017-08-17] MEDS: ENOXAPARIN SODIUM 30 MG/0.3 ML SYRINGE SQ SCH (09:00)
[2017-08-17 10:01] LABS: BICARBONATE 28.8 MEQ/L (21.0-32.0); BLOOD UREA NITROGEN 21 MG/DL (7-18); CALCIUM 8.4 MG/DL (8.5-10.1); CHLORIDE 105 MEQ/L (98-107); CREATININE 1.08 MG/DL (0.60-1.30); GLOMERULAR FILTRATION RATE 65 ML/MIN (>89); GLUCOSE,RANDOM 132 MG/DL (74-106); MAGNESIUM 2.4 MG/DL (1.5-2.5); SODIUM (NA) 140 MEQ/L (136-145)
[2017-08-17] MEDS: ASPIRIN EC 81 MG TABEC PO SCH (10:03)
[2017-08-17] MEDS: CETIRIZINE HCL 10 MG TAB PO SCH (10:03)
[2017-08-17] MEDS: LORazepam 1 MG TAB PO SCH ×3 (10:09→23:08)
[2017-08-17] MEDS: SODIUM CHLORIDE 0.9% FLUSH 10 ML FLUSH IV FLUSH SCH ×2 (10:09→20:04)
[2017-08-17 10:30] LABS: HEMOGLOBIN A1C 5.4 % (4.3-6.0)
[2017-08-17] MEDS: UMECLIDINIUM 62.5 MCG/VILANTEROL 25 MCG INHALER INH SCH (11:30)
--- NOTE | 2017-08-17 14:40 | HHI.PR ---
Subjective Remarks The pt was resting comfortably in bed. He was hoping to get the chest tube out soon. He said that he lives alone. He has a daughter in [place]. He denies any pain. He is breathing comfortably. He is tolerating a diet. Discussed with nursing. Objective Vitals Vital Signs Date Time Temp Pulse Resp B/P (MAP) Pulse Ox O2 Delivery O2 Flow Rate FiO2 08/17/17 12:00 97.8 77 18 128/60 (82) 97 08/17/17 08:06 96 Nasal Cannula 3.00 08/17/17 08:00 97.6 76 19 109/57 (74) 100 08/17/17 05:17 97.3 97 20 127/61 (83) 100 08/17/17 00:31 97.0 105 21 105/57 (73) 100 08/16/17 22:20 98 Nasal Cannula 3.00 08/16/17 20:25 97.9 116 21 112/58 (76) 99 08/16/17 20:18 98 Nasal Cannula 3.00 08/16/17 19:52 99 Nasal Cannula 3.00 08/16/17 16:00 97.8 101 18 111/58 (75) 99 I/O 08/16/17 08/16/17 08/16/17 08/17/17 08/17/17 08/17/17 07:00 15:00 23:00 07:00 15:00 23:00 Intake Total 360 ml 480 ml Output Total 668 ml 650 ml 47 ml 400 ml 40 ml Balance -308 ml -170 ml -47 ml -400 ml -40 ml Intake Oral 360 ml 480 ml Output Urine Total 600 ml 650 ml 400 ml Chest Tube Drainage Total 68 ml 47 ml 40 ml # Bowel Movements 0 Result Diagram: 08/17/17 0753 08/17/17 0753 Imaging Last Impressions Chest X-Ray 08/17/17 0600 Signed Impressions: Service Date/Time: Thursday, August 17, 2017 04:46 - CONCLUSION: Chest catheter stable in position at the right apex. No definite evidence of residual pneumothorax. Nayan Mckeon MD Chest Tube Insertion 08/15/17 0000 Signed Impressions: Service Date/Time: Tuesday, August 15, 2017 12:00 - CONCLUSION: Uncomplicated chest tube placement as above. J Carlos Bunch MD Chest Tube Change 08/14/17 0000 Signed Impressions: Service Date/Time: August 09:10 - CONCLUSION: Uncomplicated chest tube exchange as above. J Carlos Bunch MD Thoracentesis Ultrasound 08/13/17 0000 Signed Impressions: Service Date/Time: Sunday, August 13, 2017 11:45 - CONCLUSION: Right thoracentesis with with a subsequent right pneumothorax. This was treated with a 10 [place] catheter. The catheter was sutured in place and will need to be followed. J Carlos Diana MD CT Angiography 08/12/171925 Signed Impressions: Service Date/Time: Saturday, August 12, 2017 20:57 - CONCLUSION: 1. No evidence of pulmonary embolism. 2. Right pleural effusion Charly Medrano MD Objective Remarks GENERAL: Resting comfortably in bed. HEENT: Head is normocephalic without any lesions or masses noted. Facial features are symmetric. Eyes: Extraocular muscles are intact. Conjunctivae were clear. NECK: Supple without any masses. Trachea midline, no deviation. No JVD. CARDIAC: Regular rhythm, regular rate. S1/S2 are heard. No murmurs gallops or rubs. LUNGS: Decreased breath sounds in right upper lung. No wheeze, rhonchi or rales. No use of accessory muscles on inspiration or expiration. ABDOMEN: Soft, nontender. Nondistended. Bowel sounds heard in all 4 quadrants. No organomegaly or masses. Negative rebound or guarding. EXTREMITIES: No edema, pulses are equal bilaterally. No cyanosis or clubbing. NEUROLOGY: Cranial nerves II through XII grossly intact. Moving all extremities , speech is clear. PSYCH: Mood and affect appropriate. Procedures Chest tube placement Medications and IVs Current Medications Medications (Trade) Dose Ordered Sig/Donny Route Start Time Stop Time Status Last Admin (NS Flush) 2 ml UNSCH PRN IV FLUSH 08/12/17 22:30 (NS Flush) 2 ml BID IV FLUSH 08/13/17 09:00 08/17/17 10:09 (Narcan Inj) 0.4 mg UNSCH PRN IV PUSH 08/12/17 22:30 (Duoneb Neb) 1 ampule Q2HR NEB PRN NEB 08/12/17 22:30 (Ecotrin Ec) 81 mg DAILY PO 08/14/17 09:00 08/17/17 10:03 (Lovenox Inj) 30 mg DAILY SQ 08/14/17 09:00 08/16/17 09:17 (Levaquin) 500 mg Q24H PO 08/15/17 16:00 08/16/17 15:34 (Ativan) 1 mg DAILY@0800,1800,2300 PO 08/16/17 18:00 08/17/17 10:09 (Duoneb Neb) 1 ampule Q4HR WHILE AWAKE NEB NEB 08/16/17 16:00 08/17/17 08:05 (Robaxin) 500 mg TID PRN PO 08/16/17 14:30 08/16/17 23:10 (ZyrTEC) 10 mg DAILY PO 08/16/17 14:30 08/17/17 10:03 A/P Assessment and Plan Moderate size right pleural effusion/ Pneumothorax Status post ultrasound-guided thoracentesis with 1100 cc of fluid Residual pneumothorax status post chest tube placement Radiology managing chest tube. Fluid appears to be transudative Echocardiogram shows ejection fraction 50-55% with left ventricular function is low normal - CXR 08/17 without residual pneumothorax. - PT/ OT. Chronic obstructive pulmonary disease Continue O2 supplementation maintain O2 sats greater than 92%. Duo nebs every 4 hours and every 2 hours as needed. Levaquin 500 mg by mouth daily. Dr. Jiménez his oxygen therapy technician has been consulted. Appreciate recommendations. Hyperglycemia Noted on BMP. A1c 5.4%. - likely a stress reaction. Renal insufficiency Appears chronic. - avoid nephrotoxins. DVT prevention Subcutaneous Lovenox Claude Gaffney DO Aug 17, 2017 14:40
[2017-08-17] MEDS: LEVOFLOXACIN 500 MG TAB PO SCH (16:20)
--- NOTE | 2017-08-17 17:56 | HHI.PR ---
Subjective Remarks 86 YOWM with ca lung, COPD, PTX has repositioning of rt Chest tube Breathing better Has air leak Breathing better Objective Vital Signs Vital Signs Date Time Temp Pulse Resp B/P (MAP) Pulse Ox O2 Delivery O2 Flow Rate FiO2 08/17/17 16:00 97.6 74 18 115/52 (73) 100 08/17/17 12:00 97.8 77 18 128/60 (82) 97 08/17/17 08:06 96 Nasal Cannula 3.00 08/17/17 08:00 97.6 76 19 109/57 (74) 100 08/17/17 08:00 Nasal Cannula 3.00 21 08/17/17 05:17 97.3 97 20 127/61 (83) 100 08/17/17 00:31 97.0 105 21 105/57 (73) 100 08/16/17 22:20 98 Nasal Cannula 3.00 08/16/17 20:25 97.9 116 21 112/58 (76) 99 08/16/17 20:18 98 Nasal Cannula 3.00 08/16/17 19:52 99 Nasal Cannula 3.00 I/O 08/16/17 08/16/17 08/16/17 08/17/17 08/17/17 08/17/17 07:00 15:00 23:00 07:00 15:00 23:00 Intake Total 360 ml 480 ml 480 ml Output Total 668 ml 650 ml 47 ml 400 ml 640 ml Balance -308 ml -170 ml -47 ml -400 ml -160 ml Intake Oral 360 ml 480 ml 480 ml Output Urine Total 600 ml 650 ml 400 ml 600 ml Chest Tube Drainage Total 68 ml 47 ml 40 ml # Bowel Movements 0 0 Result Diagram: 08/17/17 0753 08/17/17 0753 Objective Remarks GENERAL: Frail elderly WM, mild sob SKIN: Warm and dry. HEAD: Normocephalic. EYES: No scleral icterus. No injection or drainage. NECK: Supple, trachea midline. No JVD or lymphadenopathy. CARDIOVASCULAR: Regular rate and rhythm without murmurs, gallops, or rubs. RESPIRATORY: Breath sounds equal bilaterally. No accessory muscle use. Rt chest tube with air leak GASTROINTESTINAL: Abdomen soft, non-tender, nondistended. MUSCULOSKELETAL: No cyanosis, or edema. BACK: Nontender without obvious deformity. No CVA tenderness. A/P Assessment and Plan Right PTX, s/p chest tube, radiology monitoring COPD H/O ca lung Anxiety PLAN: Chest tube to suction Supplement 02 Aerosol nebs Cont Abx CXR in AM will FU in AM Valdemar Gonzalez MD Aug 17, 2017 17:56
[2017-08-17] MEDS: METHOCARBAMOL 500 MG TAB PO PRN (23:08)
[2017-08-18] VITALS (8 sets, daily range): BP systolic 99–115; BP diastolic 55–61; PULSE 80–96; RESP 18; TEMP 97.5–98.2; O2SAT 96–100
[2017-08-18] MEDS: RESP: ALBUTEROL 2.5 MG/IPRATROPIUM 0.5 MG NEB (SCH) NEB ×3 (07:40→15:45)
[2017-08-18] MEDS: ENOXAPARIN SODIUM 30 MG/0.3 ML SYRINGE SQ SCH (10:15)
[2017-08-18] MEDS: CETIRIZINE HCL 10 MG TAB PO SCH (10:16)
[2017-08-18] MEDS: LORazepam 1 MG TAB PO SCH ×3 (10:16→23:04)
[2017-08-18] MEDS: ASPIRIN EC 81 MG TABEC PO SCH (10:16)
[2017-08-18] MEDS: UMECLIDINIUM 62.5 MCG/VILANTEROL 25 MCG INHALER INH SCH (10:17)
[2017-08-18] MEDS: SODIUM CHLORIDE 0.9% FLUSH 10 ML FLUSH IV FLUSH SCH ×2 (10:18→21:22)
--- NOTE | 2017-08-18 11:14 | RADRPT ---
EXAM DATE/TIME: 08/18/2017 10:45 [facility] COMPARISON: CT PULMONARY ANGIOGRAM, August 12, 2017, 20:57. CHEST TUBE EXCHANGE, RIGHT, August 14, 2017, 9:10. CHEST SINGLE AP, August 17, 2017, 4:46. INDICATIONS : Pneumothorax. MEDICAL HISTORY : Carcinoma, lung. Gastroesophageal reflux disease. Chronic obstructive pulmonary disease. asthma SURGICAL HISTORY : chemotherapy and radiation ENCOUNTER: Initial ACUITY: 4 - 6 days PAIN SCORE: 0/10 LOCATION: Bilateral chest FINDINGS: Small bore chest tube apex of the right lung with 1 cm pneumothorax persisting. Left lung clear. Ma rked hyperinflation with bullous changes in the base. The heart and pulmonary vascularity are normal. CONCLUSION: Right chest tube in good position with small right pneumothorax Shawn Meza MD FACR on August 18, 2017 at 11:11 Board Certified Radiologist. This report was verified electronically.
--- NOTE | 2017-08-18 16:06 | HHI.PR ---
Subjective Remarks The patient was resting comfortably in bed. He wanted to know if his lung cancer came back. He said he has not had a bowel movement in a few days. Discussed with nursing. Objective Vitals Vital Signs Date Time Temp Pulse Resp B/P (MAP) Pulse Ox O2 Delivery O2 Flow Rate FiO2 08/18/17 15:42 97.6 88 18 99/55 (70) 100 08/18/17 11:37 97.9 96 18 106/56 (73) 100 08/18/17 07:44 97 Nasal Cannula 3.00 08/18/17 07:32 98.0 91 18 115/61 (79) 98 08/18/17 05:28 99 Nasal Cannula 3.00 21 08/18/17 05:17 97.5 92 18 100/56 (71) 96 08/18/17 00:42 98.2 90 18 108/61 (77) 100 08/17/17 23:11 99 Nasal Cannula 3.00 21 08/17/17 20:14 99 Nasal Cannula 3.00 21 08/17/17 20:08 97.8 114 18 96/55 (69) 100 08/17/17 19:30 98 Nasal Cannula 3.00 I/O 08/17/17 08/17/17 08/17/17 08/18/17 08/18/17 08/18/17 06:59 14:59 22:59 06:59 14:59 22:59 Intake Total 480 ml Output Total 400 ml 640 ml 60 ml 200 ml Balance -400 ml -160 ml -60 ml -200 ml Intake Oral 480 ml Output Urine Total 400 ml 600 ml 200 ml Chest Tube Drainage Total 40 ml 60 ml # Voids 1 # Bowel Movements 0 Result Diagram: 08/17/17 0753 08/17/17 0753 Imaging Last Impressions Chest X-Ray 08/18/17 0000 Signed Impressions: Service Date/Time: Friday, August 18, 2017 10:45 - CONCLUSION: Right chest tube in good position with small right pneumothorax Shawn Meza MD FACR Chest Tube Insertion 08/15/17 0000 Signed Impressions: Service Date/Time: Tuesday, August 15, 2017 12:00 - CONCLUSION: Uncomplicated chest tube placement as above. J Carlos Bunch MD Chest Tube Change 08/14/17 0000 Signed Impressions: Service Date/Time: August 09:10 - CONCLUSION: Uncomplicated chest tube exchange as above. J Carlos Bunch MD Thoracentesis Ultrasound 08/13/17 0000 Signed Impressions: Service Date/Time: Sunday, August 13, 2017 11:45 - CONCLUSION: Right thoracentesis with with a subsequent right pneumothorax. This was treated with a 10 [place] catheter. The catheter was sutured in place and will need to be followed. J Carlos Diana MD CT Angiography 08/12/17 192 Signed Impressions: Service Date/Time: Saturday, August 12, 2017 20:57 - CONCLUSION: 1. No evidence of pulmonary embolism. 2. Right pleural effusion Charly Medrano MD Objective Remarks GENERAL: Resting comfortably in bed. SKIN: Pale. HEENT: Head is normocephalic without any lesions or masses noted. Facial features are symmetric. Eyes: Extraocular muscles are intact. Conjunctivae were clear. NECK: Supple without any masses. Trachea midline, no deviation. No JVD. CARDIAC: Regular rhythm, regular rate. S1/S2 are heard. No murmurs gallops or rubs. LUNGS: Decreased breath sounds in right upper lung. No wheeze, rhonchi or rales. No use of accessory muscles on inspiration or expiration. ABDOMEN: Soft, nontender. Nondistended. Bowel sounds heard in all 4 quadrants. No organomegaly or masses. Negative rebound or guarding. EXTREMITIES: No edema, pulses are equal bilaterally. No cyanosis or clubbing. NEUROLOGY: Cranial nerves II through XII grossly intact. Moving all extremities , speech is clear. PSYCH: Mood and affect appropriate. Procedures Chest tube placement Medications and IVs Current Medications Medications (Trade) Dose Ordered Sig/Donny Route Start Time Stop Time Status Last Admin (NS Flush) 2 ml UNSCH PRN IV FLUSH 08/12/17 22:30 (NS Flush) 2 ml BID IV FLUSH 08/13/17 09:00 08/18/17 10:18 (Narcan Inj) 0.4 mg UNSCH PRN IV PUSH 08/12/17 22:30 (Duoneb Neb) 1 ampule Q2HR NEB PRN NEB 08/12/17 22:30 (Ecotrin Ec) 81 mg DAILY PO 08/14/17 09:00 08/18/17 10:16 (Lovenox Inj) 30 mg DAILY SQ 08/14/17 09:00 08/18/17 10:15 (Levaquin) 500 mg Q24H PO 08/15/17 16:00 08/17/17 16:20 (Ativan) 1 mg DAILY@0800,1800,2300 PO 08/16/17 18:00 08/18/17 10:16 (Duoneb Neb) 1 ampule Q4HR WHILE AWAKE NEB NEB 08/16/17 16:00 08/18/17 07:40 (Robaxin) 500 mg TID PRN PO 08/16/17 14:30 08/17/17 23:08 (ZyrTEC) 10 mg DAILY PO 08/16/17 14:30 08/18/17 10:16 A/P Assessment and Plan Moderate size right pleural effusion/ Pneumothorax Status post ultrasound-guided thoracentesis with 1100 cc of fluid Residual pneumothorax status post chest tube placement Radiology and pulmonology managing chest tube. Fluid appears to be transudative. Negative for malignant cells. Echocardiogram shows ejection fraction 50-55% with left ventricular function is low normal - CXR 08/18 with small right pneumothorax. - CTS consulted by pulmonology. - PT/ OT. Chronic obstructive pulmonary disease Continue O2 supplementation maintain O2 sats greater than 92%. Duo nebs every 4 hours and every 2 hours as needed. Levaquin 500 mg by mouth daily. Dr. Jiménez his corporate strategy intern has been consulted. Appreciate recommendations. Hyperglycemia Noted on BMP. A1c 5.4%. - likely a stress reaction. Renal insufficiency Appears chronic. - avoid nephrotoxins. DVT prevention Subcutaneous Lovenox Discharge Planning Await CT surgery evaluation Claude Gaffney DO Aug 18, 2017 16:06
[2017-08-18] MEDS ORDERED: POLYETHYLENE GLYCOL 17 GM PKG PO ONE (16:15)
[2017-08-18] MEDS: LEVOFLOXACIN 500 MG TAB PO SCH (16:50)
[2017-08-18] MEDS: DOCUSATE SODIUM 50 MG/SENNA 8.6 MG TAB PO SCH (21:21)
[2017-08-18] MEDS: METHOCARBAMOL 500 MG TAB PO PRN (21:21)
[2017-08-19] VITALS (8 sets, daily range): BP systolic 99–105; BP diastolic 54–62; PULSE 73–93; RESP 18–19; TEMP 97.3–98; O2SAT 96–100
[2017-08-19] MEDS: RESP: ALBUTEROL 2.5 MG/IPRATROPIUM 0.5 MG NEB (SCH) NEB ×4 (08:14→19:52)
[2017-08-19] MEDS: DOCUSATE SODIUM 50 MG/SENNA 8.6 MG TAB PO SCH ×2 (08:41→21:00)
[2017-08-19] MEDS: LORazepam 1 MG TAB PO SCH ×2 (08:41→19:05)
[2017-08-19] MEDS: ASPIRIN EC 81 MG TABEC PO SCH (08:41)
[2017-08-19] MEDS: ENOXAPARIN SODIUM 30 MG/0.3 ML SYRINGE SQ SCH (08:41)
[2017-08-19] MEDS: CETIRIZINE HCL 10 MG TAB PO SCH (08:41)
[2017-08-19] MEDS: UMECLIDINIUM 62.5 MCG/VILANTEROL 25 MCG INHALER INH SCH (08:42)
[2017-08-19] MEDS: SODIUM CHLORIDE 0.9% FLUSH 10 ML FLUSH IV FLUSH SCH ×2 (08:42→21:00)
[2017-08-19] MEDS: LEVOFLOXACIN 500 MG TAB PO SCH (16:53)
--- NOTE | 2017-08-19 18:50 | HHI.PR ---
Subjective Remarks breathing is stable. Denies fevers or chills. states appetite is better than at home. Objective Vitals Vital Signs Date Time Temp Pulse Resp B/P (MAP) Pulse Ox O2 Delivery O2 Flow Rate FiO2 08/19/17 16:02 97.4 92 18 99/58 (72) 97 08/19/17 11:39 97.4 93 18 103/59 (74) 99 08/19/17 08:47 97 Nasal Cannula 3.00 21 08/19/17 08:25 98 Nasal Cannula 2.00 08/19/17 07:57 97.3 73 18 103/54 (70) 97 08/19/17 05:30 98.0 80 19 105/60 (75) 99 08/19/17 00:57 100 Nasal Cannula 3.00 21 08/19/17 00:00 98.0 78 18 100/59 (73) 100 08/18/17 21:20 97.6 80 18 101/56 (71) 100 08/18/17 20:22 98 Nasal Cannula 2.00 08/18/17 20:00 100 Nasal Cannula 3.00 21 I/O 08/18/17 08/18/17 08/18/17 08/19/17 08/19/17 08/19/17 06:59 14:59 22:59 06:59 14:59 22:59 Intake Total 660 ml 900 ml 720 ml Output Total 60 ml 200 ml 660 ml 400 ml Balance -60 ml -200 ml 0 ml 500 ml 720 ml Intake Oral 660 ml 900 ml 720 ml Output Urine Total 200 ml 600 ml 400 ml Chest Tube Drainage Total 60 ml 60 ml # Voids 3 # Bowel Movements 0 0 0 Result Diagram: 08/17/17 0753 08/17/17 0753 Imaging Last Impressions Chest X-Ray 08/18/17 0000 Signed Impressions: Service Date/Time: Friday, August 18, 2017 10:45 - CONCLUSION: Right chest tube in good position with small right pneumothorax Shawn Meza MD FACR Chest Tube Insertion 08/15/17 0000 Signed Impressions: Service Date/Time: Tuesday, August 15, 2017 12:00 - CONCLUSION: Uncomplicated chest tube placement as above. J Carlos Bunch MD Chest Tube Change 08/14/17 0000 Signed Impressions: Service Date/Time: August 09:10 - CONCLUSION: Uncomplicated chest tube exchange as above. J Carlos Bunch MD Thoracentesis Ultrasound 08/13/17 0000 Signed Impressions: Service Date/Time: Sunday, August 13, 2017 11:45 - CONCLUSION: Right thoracentesis with with a subsequent right pneumothorax. This was treated with a 10 [place] catheter. The catheter was sutured in place and will need to be followed. J Carlos Diana MD CT Angiography 08/12/17 192 Signed Impressions: Service Date/Time: Saturday, August 12, 2017 20:57 - CONCLUSION: 1. No evidence of pulmonary embolism. 2. Right pleural effusion Charly Medrano MD Objective Remarks GENERAL: Resting comfortably in bed. SKIN: Pale. HEENT: Head is normocephalic without any lesions or masses noted. Facial features are symmetric. Eyes: Extraocular muscles are intact. Conjunctivae were clear. NECK: Supple without any masses. Trachea midline, no deviation. No JVD. CARDIAC: Regular rhythm, regular rate. S1/S2 are heard. No murmurs gallops or rubs. LUNGS: Decreased breath sounds in right upper lung. No wheeze, rhonchi or rales. No use of accessory muscles on inspiration or expiration. ABDOMEN: Soft, nontender. Nondistended. Bowel sounds heard in all 4 quadrants. No organomegaly or masses. Negative rebound or guarding. EXTREMITIES: No edema, pulses are equal bilaterally. No cyanosis or clubbing. NEUROLOGY: Cranial nerves II through XII grossly intact. Moving all extremities , speech is clear. PSYCH: Mood and affect appropriate. Procedures Chest tube placement Medications and IVs Current Medications Medications (Trade) Dose Ordered Sig/Donny Route Start Time Stop Time Status Last Admin (NS Flush) 2 ml UNSCH PRN IV FLUSH 08/12/17 22:30 (NS Flush) 2 ml BID IV FLUSH 08/13/17 09:00 08/19/17 08:42 (Narcan Inj) 0.4 mg UNSCH PRN IV PUSH 08/12/17 22:30 (Duoneb Neb) 1 ampule Q2HR NEB PRN NEB 08/12/17 22:30 (Ecotrin Ec) 81 mg DAILY PO 08/14/17 09:00 08/19/17 08:41 (Lovenox Inj) 30 mg DAILY SQ 08/14/17 09:00 08/19/17 08:41 (Levaquin) 500 mg Q24H PO 08/15/17 16:00 08/19/17 16:53 (Ativan) 1 mg DAILY@0800,1800,2300 PO 08/16/17 18:00 08/19/17 08:41 (Duoneb Neb) 1 ampule Q4HR WHILE AWAKE NEB NEB 08/16/17 16:00 08/19/17 08:14 (Robaxin) 500 mg TID PRN PO 08/16/17 14:30 08/18/17 21:21 (ZyrTEC) 10 mg DAILY PO 08/16/17 14:30 08/19/17 08:41 (Susu-Colace) 1 tab BID PO 08/18/17 21:00 08/19/17 08:41 A/P Assessment and Plan Moderate size right pleural effusion/ Pneumothorax Status post ultrasound-guided thoracentesis with 1100 cc of fluid Residual pneumothorax status post chest tube placement Radiology and pulmonology managing chest tube. Fluid appears to be transudative. Negative for malignant cells. Echocardiogram shows ejection fraction 50-55% with left ventricular function is low normal - CXR 08/18 with small right pneumothorax. - CTS consulted by pulmonology. - PT/ OT - patient will need home health. Chronic obstructive pulmonary disease Continue O2 supplementation maintain O2 sats greater than 92%. Duo nebs every 4 hours and every 2 hours as needed. Levaquin 500 mg by mouth daily. Dr. Jiménez his medical office specialist has been consulted. Appreciate recommendations. Hyperglycemia Noted on BMP. A1c 5.4%. - likely a stress reaction. Renal insufficiency Appears chronic. - avoid nephrotoxins. Hypokalemia Replace orally and continue to monitor. DVT prevention Subcutaneous Lovenox Discharge Planning awaiting CT surgery evaluation. Pending clinical improvement. Tyrell Hernández MD Aug 19, 2017 18:50
[2017-08-20] VITALS (8 sets, daily range): BP systolic 101–110; BP diastolic 52–62; PULSE 80–102; RESP 16–20; TEMP 97–98.4; O2SAT 95–100
[2017-08-20] MEDS: LORazepam 1 MG TAB PO SCH ×4 (00:22→23:30)
[2017-08-20] MEDS: METHOCARBAMOL 500 MG TAB PO PRN ×2 (00:26→23:34)
--- NOTE | 2017-08-20 07:21 | RADRPT ---
EXAM DATE/TIME: 08/20/2017 06:32 [facility] COMPARISON: CHEST SINGLE AP, August 18, 2017, 10:45. INDICATIONS : Right pneumothorax. MEDICAL HISTORY : Carcinoma, lung. Gastroesophageal reflux disease. Chronic obstructive pulmonary disease. Asthma. SURGICAL HISTORY : Chemotherapy. Radiation Therapy. ENCOUNTER: Subsequent ACUITY: 1 week PAIN SCORE: 0/10 LOCATION: Right chest FINDINGS: A single view of the chest demonstrates the small right pigtail catheter remains overlying the chest apex. There is a residual right pneumothorax today measuring 2 cm in the midclavicular line. Signific ant consolidation remains in the right superhilar region. The cardiomediastinal contours are unremark able. Osseous structures are intact. CONCLUSION: Slightly larger right pneumothorax since previous study. Chest tube remains in excellent position. Jorge Steinberg MD on August 20, 2017 at 7:18 Board Certified Radiologist. This report was verified electronically.
[2017-08-20 07:53] LABS: AUTOMATED NEUTROPHIL # 6.7 TH/MM3 (1.8-7.7); BASOPHIL # 0.1 TH/MM3 (0-0.2); BASOPHIL % 0.6 % (0.0-2.0); EOSINOPHIL # 0.5 TH/MM3 (0-0.4); EOSINOPHIL % 5.8 % (0.0-4.0); HEMATOCRIT 39.3 % (39.0-51.0); HEMOGLOBIN 13.4 GM/DL (13.0-17.0); LYMPH % 10.7 % (9.0-44.0); MEAN CELL VOLUME 96.8 FL (80.0-100.0); MEAN CORPUSCULAR HGB CONC 34.1 % (32.0-36.0); MEAN PLATELET VOLUME 10.7 FL (7.0-11.0); MONOCYTE # 0.8 TH/MM3 (0-0.9); NEUT % 73.9 % (16.0-70.0); PLATELET COUNT 150 TH/MM3 (150-450); RED BLOOD COUNT 4.06 MIL/MM3 (4.50-5.90); RED CELL DISTRIBUTION WIDTH 12.7 % (11.6-17.2); WHITE BLOOD COUNT 9.1 TH/MM3 (4.0-11.0)
[2017-08-20 08:18] LABS: ALBUMIN 2.8 GM/DL (3.4-5.0); ALT (GPT) 18 U/L (12-78); AST (GOT) 11 U/L (15-37); BICARBONATE 29.8 MEQ/L (21.0-32.0); BLOOD UREA NITROGEN 19 MG/DL (7-18); CALCIUM 8.1 MG/DL (8.5-10.1); CHLORIDE 107 MEQ/L (98-107); CREATININE 0.96 MG/DL (0.60-1.30); GLOMERULAR FILTRATION RATE 74 ML/MIN (>89); GLUCOSE,RANDOM 98 MG/DL (74-106); MAGNESIUM 2.1 MG/DL (1.5-2.5); PHOSPHORUS 3.2 MG/DL (2.5-4.9); SODIUM (NA) 141 MEQ/L (136-145)
[2017-08-20 08:20] LABS: ALKALINE PHOSPHATASE 61 U/L (45-117); TOTAL BILIRUBIN ADULT 0.7 MG/DL (0.2-1.0); TOTAL PROTEIN 6.7 GM/DL (6.4-8.2)
[2017-08-20] MEDS: RESP: ALBUTEROL 2.5 MG/IPRATROPIUM 0.5 MG NEB (SCH) NEB ×2 (08:54→12:47)
[2017-08-20] MEDS: DOCUSATE SODIUM 50 MG/SENNA 8.6 MG TAB PO SCH ×2 (10:02→21:00)
[2017-08-20] MEDS: ENOXAPARIN SODIUM 30 MG/0.3 ML SYRINGE SQ SCH (10:02)
[2017-08-20] MEDS: ASPIRIN EC 81 MG TABEC PO SCH (10:02)
[2017-08-20] MEDS: UMECLIDINIUM 62.5 MCG/VILANTEROL 25 MCG INHALER INH SCH (10:03)
[2017-08-20] MEDS: SODIUM CHLORIDE 0.9% FLUSH 10 ML FLUSH IV FLUSH SCH ×2 (10:03→20:55)
[2017-08-20] MEDS: CETIRIZINE HCL 10 MG TAB PO SCH (10:03)
--- NOTE | 2017-08-20 16:05 | HHI.PR ---
Subjective Remarks Patient states that his respiratory status is stable. Denies cough. States feels weak. As per was at bedside states he is eating well. Objective Vitals Vital Signs Date Time Temp Pulse Resp B/P (MAP) Pulse Ox O2 Delivery O2 Flow Rate FiO2 08/20/17 12:12 97.6 96 19 101/52 (68) 98 08/20/17 09:05 95 Nasal Cannula 2.00 08/20/17 08:14 97.6 88 20 110/55 (73) 95 08/20/17 04:15 97.8 90 18 107/59 (75) 97 08/20/17 00:30 97.0 80 19 110/60 (77) 95 08/19/17 21:50 98.0 80 19 105/62 (76) 96 08/19/17 20:25 98 Nasal Cannula 3.00 08/19/17 19:54 98 Nasal Cannula 2.00 08/19/17 16:02 97.4 92 18 99/58 (72) 97 I/O 08/19/17 08/19/17 08/19/17 08/20/17 08/20/17 08/20/17 06:59 14:59 22:59 06:59 14:59 22:59 Intake Total 900 ml 1320 ml 700 ml 240 ml 240 ml Output Total 400 ml 200 ml 370 ml 200 ml Balance 500 ml 1120 ml 330 ml 240 ml 40 ml Intake Oral 900 ml 1320 ml 700 ml 240 ml 240 ml Output Urine Total 400 ml 200 ml 300 ml 200 ml Chest Tube Drainage Total 70 ml # Voids 3 # Bowel Movements 0 0 0 Result Diagram: 08/20/17 0715 08/20/17 0715 Imaging Last Impressions Chest X-Ray 08/20/17 0600 Signed Impressions: Service Date/Time: Sunday, August 20, 2017 06:32 - CONCLUSION: Slightly larger right pneumothorax since previous study. Chest tube remains in excellent position. Jorge Steinberg MD Chest Tube Insertion 08/15/17 0000 Signed Impressions: Service Date/Time: Tuesday, August 15, 2017 12:00 - CONCLUSION: Uncomplicated chest tube placement as above. J Carlos Bunch MD Chest Tube Change 08/14/17 0000 Signed Impressions: Service Date/Time: August 09:10 - CONCLUSION: Uncomplicated chest tube exchange as above. J Carlos Bunch MD Thoracentesis Ultrasound 08/13/17 0000 Signed Impressions: Service Date/Time: Sunday, August 13, 2017 11:45 - CONCLUSION: Right thoracentesis with with a subsequent right pneumothorax. This was treated with a 10 [place] catheter. The catheter was sutured in place and will need to be followed. J Carlos Diana MD CT Angiography 08/12/17 1926 Signed Impressions: Service Date/Time: Saturday, August 12, 2017 20:57 - CONCLUSION: 1. No evidence of pulmonary embolism. 2. Right pleural effusion Charly Medrano MD Objective Remarks GENERAL: Patient is very cachectic, resting comfortably in bed, not in respiratory distress. SKIN: Skin is pale, no rash observed. HEENT: Head is normocephalic without any lesions or masses noted. Facial features are symmetric. Eyes: Extraocular muscles are intact. Conjunctivae were clear. NECK: Supple without any masses. Trachea midline, no deviation. No JVD. CARDIAC: Regular rhythm, regular rate. S1/S2 are heard. No murmurs gallops or rubs. LUNGS: Clear to auscultation bilaterally.. No wheeze, rhonchi or rales. No use of accessory muscles on inspiration or expiration. There is a continues blowing sound on the right upper lung field. Chest tube present on the right lung field draining serosanguineous fluid. ABDOMEN: Soft, nontender. Nondistended. Bowel sounds heard in all 4 quadrants. No organomegaly or masses. Negative rebound or guarding. EXTREMITIES: No edema, pulses are equal bilaterally. No cyanosis or clubbing. NEUROLOGY: Cranial nerves II through XII grossly intact. Moving all extremities , speech is clear. PSYCH: Mood and affect appropriate. Procedures Chest tube placement Medications and IVs Current Medications Medications (Trade) Dose Ordered Sig/Donny Route Start Time Stop Time Status Last Admin (NS Flush) 2 ml UNSCH PRN IV FLUSH 08/12/17 22:30 (NS Flush) 2 ml BID IV FLUSH 08/13/17 09:00 08/20/17 10:03 (Narcan Inj) 0.4 mg UNSCH PRN IV PUSH 08/12/17 22:30 (Duoneb Neb) 1 ampule Q2HR NEB PRN NEB 08/12/17 22:30 (Ecotrin Ec) 81 mg DAILY PO 08/14/17 09:00 08/20/17 10:02 (Lovenox Inj) 30 mg DAILY SQ 08/14/17 09:00 08/20/17 10:02 (Levaquin) 500 mg Q24H PO 08/15/17 16:00 08/19/17 16:53 (Ativan) 1 mg DAILY@0800,1800,2300 PO 08/16/17 18:00 08/20/17 08:00 (Duoneb Neb) 1 ampule Q4HR WHILE AWAKE NEB NEB 08/16/17 16:00 08/20/17 12:47 (Robaxin) 500 mg TID PRN PO 08/16/17 14:30 08/20/17 00:26 (ZyrTEC) 10 mg DAILY PO 08/16/17 14:30 08/20/17 10:03 (Susu-Colace) 1 tab BID PO 08/18/17 21:00 08/20/17 10:02 A/P Problem List: (1) Pneumothorax ICD Code: J93.9 - Pneumothorax, unspecified Plan: The patient presented with moderate sized right pleural effusion/ pneumothorax. The patient underwent ultrasound-guided thoracentesis with 1100 cc of fluid removed. Pneumothorax was treated with a chest tube placement. Cardiology and pulmonology managing the chest tube. Fluid appeared to be transudative. Negative for malignant cells. 2D echocardiogram showed an EF of 50-55% with left ventricular function is low normal. Chest x-ray on 08/18 still shows small right pneumothorax. CT surgery consulted by pulmonology. CT surgery consultation pending. (2) COPD (chronic obstructive pulmonary disease) ICD Code: J44.9 - COPD (chronic obstructive pulmonary disease) Status: Chronic Plan: Continue O2 supplementation maintain O2 sats greater than 92%. Duo nebs every 4 hours and every 2 hours as needed. Levaquin 500 mg by mouth daily. Dr. Jiménez his crime scene investigator has been consulted. Appreciate recommendations. (3) Pleural effusion ICD Code: J90 - Pleural effusion, not elsewhere classified Status: Resolved Plan: Status post ultrasound-guided thoracentesis and chest tube placement. (4) Hyperglycemia ICD Code: R73.9 - Hyperglycemia, unspecified Status: Resolved Plan: Likely related to stress. Hemoglobin A1c obtained and 5.4%. Continue to monitor BMP Assessment and Plan DVT prophylaxis: SCDs, Lovenox subcutaneously. Discharge Planning awaiting CT surgery evaluation. Pending clinical improvement. Tyrell Hernández MD Aug 20, 2017 16:05
--- NOTE | 2017-08-20 17:09 | MB ---
cc: Cayla Garcia DATE OF CONSULT: An 86-year-old male who had longstanding history of advanced lung cancer, not a surgical candidate, was treated with radiation and chemotherapy, followed by Dr. Lujan without obvious recurrence, apparently re-presented on the with cough, congestion, shortness of breath, was noted to have a pleural effusion. Admitted for probable COPD exacerbation, possible recurrent malignancy. They did a diagnostic thoracentesis on the and the culture was negative. Exudative cytology, scattered mesothelial cells, negative for malignant cells. Unfortunately, the patient had a pneumothorax after the thoracentesis, so a chest tube was inserted which had to be changed again because of a residual persistent pneumothorax and he did have initial expansion of the lung. We were consulted for persistent air leak. Chest x-ray this morning showed a slightly larger right pneumothorax since the previous study, measuring 2 cm in the midclavicular line. He does have a +5 air leak and it is on wall suction. He had a CT angiography on the which showed no evidence of pulmonary embolism; however, right pleural effusion, significant centrilobular emphysemic changes throughout both lungs. There was also a 5 cm bulla in the right upper lobe. PAST MEDICAL HISTORY: Includes advanced lung cancer with prior radiation and chemotherapy, followed by Dr. Lujan, benign prostatic hypertrophy, peripheral arterial disease, osteoarthritis, bilateral hip surgeries, knee surgeries. ALLERGIES: NO KNOWN ALLERGIES. HOME MEDICATIONS: Include Zyrtec, Anoro Ellipta, Proventil, Robaxin, Norvasc, aspirin, lorazepam. FAMILY HISTORY: Noncontributory. SOCIAL HISTORY: Former smoker, 40-50 pack/year. He quit many years ago. No significant alcohol. Lives independently. Apparently has a caregiver, but he still drives. REVIEW OF SYSTEMS: Positive for cough, minimal congestion, more short of breath for a week. PHYSICAL EXAMINATION: This is a very thin male, BMI is only 16. VITAL SIGNS: Blood pressure 101/56, heart rate of 100, O2 sat 99 on 2 L, temp 98.8. Patient is awake, alert, no acute distress. HEENT: Normocephalic, atraumatic. Pupils equal and reactive. Oral mucosa pink, moist. NECK: Supple. No JVD. HEART: Sounds S1, S2. Regular rate and rhythm. No audible rubs or gallops. LUNGS: Coarse bilateral breath sounds. No rhonchi. He has got a right upper chest wall pigtail catheter to suction with +5 air leak. EXTREMITIES: Reveal some trace clubbing. No edema. LABORATORY STUDIES: Lab work shows hemoglobin 13, hematocrit of 38, white cell count of 9.1, platelet count of 150. Sodium 141, potassium 3.9, BUN of 19, creatinine 0.96. INR 1.0. Micro shows negative blood cultures. Negative influenza A and B. Pleural fluid, no growth. PATHOLOGY: As above. RADIOLOGICAL EXAMINATIONS: As above. At this time, the patient has persistent air leak with bullous emphysema. We will repeat his chest x-ray, which will be evaluated by Dr. Benton Daly. He is at high risk for any type of anesthesia and surgery related to his age and poor nutritional status. We will also check pulmonary function testing. In the meantime, he did have an echocardiogram to be noted with an EF of 50-55%, no evidence of any valvular disorder at this time. We will follow accordingly after the CT chest. RAJAN Hankins MD JRT/TI , 04:51 PM , 05:08 PM
--- NOTE | 2017-08-20 17:48 | RADRPT ---
EXAM DATE/TIME: 08/20/2017 17:22 [facility] COMPARISON: CHEST SINGLE AP, August 20, 2017, 6:32. INDICATIONS : Short of breath, prior pnemothorax. RADIATION DOSE: 3.81 CTDIvol (mGy) MEDICAL HISTORY : Cardiovascular disease. Chronic obstructive pulmonary disease. Carcinoma, lung. Asthma. SURGICAL HISTORY : None. ENCOUNTER: Initial ACUITY: 2 weeks PAIN SCALE: 7/10 LOCATION: Right chest upper TECHNIQUE: Volumetric scanning of the chest was performed. Using automated exposure control and adjustment of t he mA and/or kV according to patient size, radiation dose was kept as low as reasonably achievable to obtain optimal diagnostic quality images. DICOM format image data is available electronically for r eview and comparison. Follow-up recommendations for detected pulmonary nodules are based at a minimum on nodule size and pa tient risk factors according to Fleischner Society Guidelines. FINDINGS: There is a large pneumothorax despite an appropriately positioned small caliber chest tube. There is a bulla seen involving the collapsed right apex. A small right pleural effusion is noted. Left lung i s normally expanded. The heart is normal in size. Coronary artery atherosclerotic calcifications are pronounced. A small amount of subcutaneous air is seen involving the anterior chest wall. A mild pect us excavatum deformity. CONCLUSION: 1. Large hydropneumothorax with more air than fluid despite an appropriately positioned small caliber chest tube. A persistent pneumothorax in this situation could relate to insufficiency suction either relating to a kink within the catheter or debris within the chest tube itself. Alternatively a large air leak could over power the tube in which case a surgically placed tube would be needed to fully r einflate the lung. There is a thin wall walled subpleural bleb involving the right apex which could b e a source of a large air leak. Nayan Han Jr., MD on August 20, 2017 at 17:36 Board Certified Radiologist. This report was verified electronically.
[2017-08-20] MEDS: LEVOFLOXACIN 500 MG TAB PO SCH (19:21)
[2017-08-21] VITALS: BP 101/57; PULSE 101; RESP 18; TEMP 97.9; O2SAT 97
[2017-08-21 04:00] VITALS: BP 94/51; PULSE 83; RESP 18; TEMP 97.3; O2SAT 98
[2017-08-21 07:52] VITALS: BP 114/58; PULSE 70; RESP 17; TEMP 97; O2SAT 98
[2017-08-21] MEDS: LORazepam 1 MG TAB PO SCH ×3 (08:00→23:26)
[2017-08-21] MEDS: CETIRIZINE HCL 10 MG TAB PO SCH (10:02)
[2017-08-21] MEDS: DOCUSATE SODIUM 50 MG/SENNA 8.6 MG TAB PO SCH ×2 (10:02→23:26)
[2017-08-21] MEDS: ASPIRIN EC 81 MG TABEC PO SCH (10:02)
[2017-08-21] MEDS: ENOXAPARIN SODIUM 30 MG/0.3 ML SYRINGE SQ SCH (10:02)
[2017-08-21] MEDS: SODIUM CHLORIDE 0.9% FLUSH 10 ML FLUSH IV FLUSH SCH ×2 (10:03→23:27)
[2017-08-21] MEDS: UMECLIDINIUM 62.5 MCG/VILANTEROL 25 MCG INHALER INH SCH (10:03)
[2017-08-21 12:21] VITALS: BP_SYST 117; BP_SYST 97; BP_DIAS 54; BP_DIAS 61; PULSE 71; PULSE 91; RESP 17; RESP 19; TEMP 97.1; TEMP 97.7; O2SAT 94; O2SAT 97
--- NOTE | 2017-08-21 14:43 | HHI.PR ---
Subjective Remarks Denies chest pain, shortness of breath stable. Blood pressure in the lower side. Denies fevers or chills. Denies cough. Objective Vitals Vital Signs Date Time Temp Pulse Resp B/P (MAP) Pulse Ox O2 Delivery O2 Flow Rate FiO2 08/21/17 12:21 97.1 91 17 97/54 (68) 97 08/21/17 07:52 97.0 70 17 114/58 (76) 98 08/21/17 04:00 97.3 83 18 94/51 (65) 98 08/21/17 02:45 97 Nasal Cannula 3.00 08/21/17 00:00 98 Nasal Cannula 3.00 08/21/17 00:00 97.9 101 18 101/57 (72) 97 08/20/17 20:00 100 Nasal Cannula 3.00 08/20/17 20:00 98.2 93 18 102/56 (71) 100 08/20/17 16:00 98.0 102 19 101/56 (71) 99 I/O 08/20/17 08/20/17 08/20/17 08/21/17 08/21/17 08/21/17 07:00 15:00 23:00 07:00 15:00 23:00 Intake Total 700 ml 240 ml 240 ml Output Total 370 ml 440 ml 40 ml 300 ml Balance 330 ml 240 ml -200 ml -40 ml -300 ml Intake Oral 700 ml 240 ml 240 ml Output Urine Total 300 ml 200 ml 300 ml Chest Tube Drainage Total 70 ml 240 ml 40 ml # Bowel Movements 0 Result Diagram: 08/20/17 0715 08/20/17 0715 Imaging Last 72 hours Impressions Chest X-Ray 08/20/17 0600 Signed Impressions: Service Date/Time: Sunday, August 20, 2017 06:32 - CONCLUSION: Slightly larger right pneumothorax since previous study. Chest tube remains in excellent position. Jorge Steinberg MD Chest CT 08/20/17 0000 Signed Impressions: Service Date/Time: Sunday, August 20, 2017 17:22 - CONCLUSION: 1. Large hydropneumothorax with more air than fluid despite an appropriately positioned small caliber chest tube. A persistent pneumothorax in this situation could relate to insufficiency suction either relating to a kink within the catheter or debris within the chest tube itself. Alternatively a large air leak could over power the tube in which case a surgically placed tube would be needed to fully reinflate the lung. There is a thin wall walled subpleural bleb involving the right apex which could be a source of a large air leak. Nayan Han Jr., MD Objective Remarks GENERAL: Patient is very cachectic, resting comfortably in bed, not in respiratory distress. SKIN: Skin is pale, no rash observed. HEENT: Head is normocephalic without any lesions or masses noted. Facial features are symmetric. Eyes: Extraocular muscles are intact. Conjunctivae were clear. NECK: Supple without any masses. Trachea midline, no deviation. No JVD. CARDIAC: Regular rhythm, regular rate. S1/S2 are heard. No murmurs gallops or rubs. LUNGS: Absent breath sounds on right hemithorax. . There is a continues blowing sound on the right upper lung field. Chest tube present on the right lung field draining serosanguineous fluid. ABDOMEN: Soft, nontender. Nondistended. Bowel sounds heard in all 4 quadrants. No organomegaly or masses. Negative rebound or guarding. EXTREMITIES: No edema, pulses are equal bilaterally. No cyanosis or clubbing. NEUROLOGY: Cranial nerves II through XII grossly intact. Moving all extremities , speech is clear. PSYCH: Mood and affect appropriate. Procedures Chest tube placement Medications and IVs Current Medications Medications (Trade) Dose Ordered Sig/Donny Route Start Time Stop Time Status Last Admin (NS Flush) 2 ml UNSCH PRN IV FLUSH 08/12/17 22:30 (NS Flush) 2 ml BID IV FLUSH 08/13/17 09:00 08/21/17 10:03 (Narcan Inj) 0.4 mg UNSCH PRN IV PUSH 08/12/17 22:30 (Duoneb Neb) 1 ampule Q2HR NEB PRN NEB 08/12/17 22:30 (Ecotrin Ec) 81 mg DAILY PO 08/14/17 09:00 08/21/17 10:02 (Lovenox Inj) 30 mg DAILY SQ 08/14/17 09:00 08/21/17 10:02 (Levaquin) 500 mg Q24H PO 08/15/17 16:00 08/20/17 19:21 (Ativan) 1 mg DAILY@0800,1800,2300 PO 08/16/17 18:00 08/21/17 08:00 (Robaxin) 500 mg TID PRN PO 08/16/17 14:30 08/20/17 23:34 (ZyrTEC) 10 mg DAILY PO 08/16/17 14:30 08/21/17 10:02 (Susu-Colace) 1 tab BID PO 08/18/17 21:00 08/21/17 10:02 Urinary Catheter: No Vascular Central Line Catheter: No A/P Problem List: (1) Pneumothorax ICD Code: J93.9 - Pneumothorax, unspecified Plan: The patient presented with moderate sized right pleural effusion/ pneumothorax. The patient underwent ultrasound-guided thoracentesis with 1100 cc of fluid removed. Pneumothorax was treated with a chest tube placement. Cardiology and pulmonology managing the chest tube. Fluid appeared to be transudative. Negative for malignant cells. 2D echocardiogram showed an EF of 50-55% with left ventricular function is low normal. Chest x-ray on 08/18 still shows small right pneumothorax. CT surgery consulted by pulmonology. 08/21 appreciate cardiothoracic surgery consultation recommendations. As per CT surgery the patient has a persistent air leak with bullous emphysema. Repeat chest x-ray obtained on 08/20 showed a slightly larger right pneumothorax, CT of the chest on same date shows a large hydropneumothorax with more than fluid despite an appropriately positioned small-caliber chest tube. Will discuss with cardiothoracic surgery. (2) COPD (chronic obstructive pulmonary disease) ICD Code: J44.9 - COPD (chronic obstructive pulmonary disease) Status: Chronic Plan: Continue O2 supplementation maintain O2 sats greater than 92%. Duo nebs every 4 hours and every 2 hours as needed. Levaquin 500 mg by mouth daily. Dr. Jiménez his sales service technician has been consulted. Appreciate recommendations. (3) Pleural effusion ICD Code: J90 - Pleural effusion, not elsewhere classified Status: Resolved Plan: Status post ultrasound-guided thoracentesis and chest tube placement. (4) Hyperglycemia ICD Code: R73.9 - Hyperglycemia, unspecified Status: Resolved Plan: Likely related to stress. Hemoglobin A1c obtained and 5.4%. Continue to monitor BMP Assessment and Plan DVT prophylaxis: SCDs, Lovenox subcutaneously. Discharge Planning Patient with worsening hydropneumothorax. Follow-up CT surgery recommendations. Patient still has a chest tube. Tyrell Hernández MD Aug 21, 2017 14:42
[2017-08-21] MEDS: LEVOFLOXACIN 500 MG TAB PO SCH (16:28)
[2017-08-21 17:10] VITALS: BP 112/61; PULSE 91; RESP 16; TEMP 97.9; O2SAT 99
[2017-08-21 20:00] VITALS: BP 102/59; PULSE 109; RESP 18; TEMP 97.8; O2SAT 96
[2017-08-21] MEDS: METHOCARBAMOL 500 MG TAB PO PRN (23:34)
[2017-08-22] VITALS (8 sets, daily range): BP systolic 95–107; BP diastolic 55–68; PULSE 97–117; RESP 18–28; TEMP 97.3–98.3; O2SAT 95–99
[2017-08-22] MEDS: LORazepam 1 MG TAB PO SCH ×3 (08:00→22:44)
--- NOTE | 2017-08-22 08:01 | RSPPFT ---
DATE OF PROCEDURE: 08/21/17 COMMENTS: VOLUMES DYNAMIC: FVC and FEV1 severely reduced. FLOWS: FEV1% moderately reduced; FEF 25-75 severely reduced. IMPRESSION: Severe obstructive ventilatory defect.
[2017-08-22] MEDS: CETIRIZINE HCL 10 MG TAB PO SCH (09:00)
[2017-08-22] MEDS: UMECLIDINIUM 62.5 MCG/VILANTEROL 25 MCG INHALER INH SCH (09:00)
[2017-08-22] MEDS: SODIUM CHLORIDE 0.9% FLUSH 10 ML FLUSH IV FLUSH SCH ×2 (09:00→22:45)
[2017-08-22] MEDS: ENOXAPARIN SODIUM 30 MG/0.3 ML SYRINGE SQ SCH (09:00)
[2017-08-22] MEDS: ASPIRIN EC 81 MG TABEC PO SCH (09:00)
[2017-08-22] MEDS: DOCUSATE SODIUM 50 MG/SENNA 8.6 MG TAB PO SCH ×2 (09:00→22:44)
--- NOTE | 2017-08-22 12:37 | HHI.PR ---
Subjective Remarks WILL GET CT OF CHEST [facility] ST[facility] CANDIDATE FOR SURGERY AWAIT CHEST TUBE PLACEMENT BY [facility] DW RADIOLOGY THEY STATE THEY CANNOT DO A BIGGER CHEST TUBE- RECOMMENDED SURGERY/ [facility] RN AND PT AND CM Objective Vitals Vital Signs Date Time Temp Pulse Resp B/P (MAP) Pulse Ox O2 Delivery O2 Flow Rate FiO2 08/22/17 12:00 97.3 101 18 101/57 (72) 99 08/22/17 08:00 97.4 102 18 97/63 (74) 96 08/22/17 04:00 97.4 97 18 95/55 (68) 97 08/22/17 00:00 98.3 109 18 98/62 (74) 98 08/21/17 20:00 97.8 109 18 102/59 (73) 96 08/21/17 17:10 97.9 91 16 112/61 (78) 99 I/O 08/21/17 08/21/17 08/21/17 08/22/17 08/22/17 08/22/17 07:00 15:00 23:00 07:00 15:00 23:00 Output Total 40 ml 300 ml 200 ml 450 ml Balance -40 ml -300 ml -200 ml -450 ml Output Urine Total 300 ml 200 ml 450 ml Chest Tube Drainage Total 40 ml Result Diagram: 08/20/1715 08/20/17 0715 Other Results Laboratory Tests Test 08/20/17 07:15 White Blood Count 9.1 TH/MM3 Red Blood Count 4.06 MIL/MM3 Hemoglobin 13.4 GM/DL Hematocrit 39.3 % Mean Corpuscular Volume 96.8 FL Mean Corpuscular Hemoglobin 33.0 PG Mean Corpuscular Hemoglobin Concent 34.1 % Red Cell Distribution Width 12.7 % Platelet Count 150 TH/MM3 Mean Platelet Volume 10.7 FL Neutrophils (%) (Auto) 73.9 % Lymphocytes (%) (Auto) 10.7 % Monocytes (%) (Auto) 9.0 % Eosinophils (%) (Auto) 5.8 % Basophils (%) (Auto) 0.6 % Neutrophils # (Auto) 6.7 TH/MM3 Lymphocytes # (Auto) 1.0 TH/MM3 Monocytes # (Auto) 0.8 TH/MM3 Eosinophils # (Auto) 0.5 TH/MM3 Basophils # (Auto) 0.1 TH/MM3 CBC Comment DIFF FINAL Differential Comment Blood Urea Nitrogen 19 MG/DL Creatinine 0.96 MG/DL Random Glucose 98 MG/DL Total Protein 6.7 GM/DL Albumin 2.8 GM/DL Calcium Level 8.1 MG/DL Phosphorus Level 3.2 MG/DL Magnesium Level 2.1 MG/DL Alkaline Phosphatase 61 U/L Aspartate Amino Transf (AST/SGOT) 11 U/L Alanine Aminotransferase (ALT/SGPT) 18 U/L Total Bilirubin 0.7 MG/DL Sodium Level 141 MEQ/L Potassium Level 3.9 MEQ/L Chloride Level 107 MEQ/L Carbon Dioxide Level 29.8 MEQ/L Anion Gap 4 MEQ/L Estimat Glomerular Filtration Rate 74 ML/MIN Imaging Last Impressions Chest X-Ray 08/20/17 0600 Signed Impressions: Service Date/Time: Sunday, August 20, 2017 06:32 - CONCLUSION: Slightly larger right pneumothorax since previous study. Chest tube remains in excellent position. Jorge Steinberg MD Chest CT 08/20/17 0000 Signed Impressions: Service Date/Time: Sunday, August 20, 2017 17:22 - CONCLUSION: 1. Large hydropneumothorax with more air than fluid despite an appropriately positioned small caliber chest tube. A persistent pneumothorax in this situation could relate to insufficiency suction either relating to a kink within the catheter or debris within the chest tube itself. Alternatively a large air leak could over power the tube in which case a surgically placed tube would be needed to fully reinflate the lung. There is a thin wall walled subpleural bleb involving the right apex which could be a source of a large air leak. Nayan Han Jr., MD Chest Tube Insertion 08/15/17 0000 Signed Impressions: Service Date/Time: Tuesday, August 15, 2017 12:00 - CONCLUSION: Uncomplicated chest tube placement as above. J Carlos Bunch MD Chest Tube Change 08/14/17 0000 Signed Impressions: Service Date/Time: August 09:10 - CONCLUSION: Uncomplicated chest tube exchange as above. J Carlos Bunch MD Thoracentesis Ultrasound 08/13/17 0000 Signed Impressions: Service Date/Time: Sunday, August 13, 2017 11:45 - CONCLUSION: Right thoracentesis with with a subsequent right pneumothorax. This was treated with a 10 Wol[place] catheter. The catheter was sutured in place and will need to be followed. J Carlos Diana MD CT Angiography [id number]/12/[id number] Signed Impressions: Service Date/Time: Saturday, August 12, 2017 20:57 - CONCLUSION: 1. No evidence of pulmonary embolism. 2. Right pleural effusion Charly Medrano MD Objective Remarks GENERAL: Patient is very cachectic, resting comfortably in bed, not in respiratory distress. SKIN: Skin is pale, no rash observed. HEENT: Head is normocephalic without any lesions or masses noted. Facial features are symmetric. Eyes: Extraocular muscles are intact. Conjunctivae were clear. NECK: Supple without any masses. Trachea midline, no deviation. No JVD. CARDIAC: Regular rhythm, regular rate. S1/S2 are heard. No murmurs gallops or rubs. LUNGS: Absent breath sounds on right hemithorax. . There is a continues blowing sound on the right upper lung field. Chest tube present on the right lung field draining serosanguineous fluid. ABDOMEN: Soft, nontender. Nondistended. Bowel sounds heard in all 4 quadrants. No organomegaly or masses. Negative rebound or guarding. EXTREMITIES: No edema, pulses are equal bilaterally. No cyanosis or clubbing. NEUROLOGY: Cranial nerves II through XII grossly intact. Moving all extremities , speech is clear. PSYCH: Mood and affect appropriate. Procedures Chest tube placement Medications and IVs Current Medications Sodium Chloride (NS Flush) 2 ml UNSCH PRN IVF FLUSH AFTER USING IV ACCESS; Start 08/12/17 at 19:30; Stop 08/12/17 at 22:37; Status DC Acetaminophen (Tylenol) 650 mg ONCE ONCE PO Last administered on 08/12/17at 22: 07; Start 08/12/17 at 21:00; Stop 08/12/17 at 21:01; Status DC Ceftriaxone Sodium 1000 mg/ Sodium Chloride 100 ml @ 200 mls/hr ONCE ONCE IV Last administered on 08/12/17at 21:00; Start 08/12/17 at 21:00; Stop 08/12/17 at 21:29; Status DC Azithromycin 500 mg/Sodium Chloride 250 ml @ 250 mls/hr ONCE ONCE IV Last administered on 08/12/17at 21:00; Start 08/12/17 at 21:00; Stop 08/12/17 at 21:59 ; Status DC Iohexol (Omnipaque 350 Inj) 75 ml STK-MED ONCE IVCONTRAST Last administered on 08/12/17at 21:12; Start 08/12/17 at 21:12; Stop 08/12/17 at 21:13; Status DC Sodium Chloride (NS Flush) 2 ml UNSCH PRN IV FLUSH FLUSH AFTER USING IV ACCESS ; Start 08/12/17 at 22:30 Sodium Chloride (NS Flush) 2 ml BID IV FLUSH Last administered on 08/21/17at 23: 27; Start 08/13/17 at 09:00 Heparin Sodium (Porcine) (Heparin Inj) 5,000 units Q8HR SQ ; Start 08/12/17 at 06:00; Status Cancel Naloxone HCl (Narcan Inj) 0.4 mg UNSCH PRN IV PUSH SEE LABEL COMMENTS; Start at 22:30 Albuterol/ Ipratropium (Duoneb Neb) 1 ampule Q4HR NEB NEB Last administered on 08/13/17at 07:58; Start 08/13/17 at 00:00; Stop 08/13/17 at 08:14; Status DC Albuterol/ Ipratropium (Duoneb Neb) 1 ampule Q2HR NEB PRN NEB sob, wheeze; Start 08/12/17 at 22:30 Heparin Sodium (Porcine) (Heparin Inj) 5,000 units Q8HR SQ Last administered on 08/13/17at 06:30; Start 08/13/17 at 06:00; Stop 08/13/17 at 17:29; Status DC Albuterol/ Ipratropium (Duoneb Neb) 1 ampule Q4HR WHILE AWAKE NEB NEB Last administered on 08/16/17at 12:20; Start 08/13/17 at 12:00; Stop 08/16/17 at 14:20; Status DC Aspirin (Ecotrin Ec) 81 mg DAILY PO Last administered on 08/21/17at 10:02; Start 08/14/17 at 09:00 Lorazepam (Ativan) 1 mg TID PO Last administered on 08/16/17at 09:12; Start 08/13 at 13:00; Stop 08/16/17 at 11:22; Status DC Levofloxacin (Levaquin) 750 mg Q2D PO ; Start 08/14/17 at 11:00; Stop 08/14/17 at 11:00; Status DC Enoxaparin Sodium (Lovenox Inj) 40 mg Q24H SQ ; Start 08/14/17 at 09:00; Stop 08/14/17 at 09:00; Status DC Enoxaparin Sodium (Lovenox Inj) 30 mg DAILY SQ ; Start 08/14/17 at 09:00; Stop at 09:00; Status DC Levofloxacin (Levaquin) 500 mg Q24H PO Last administered on 08/14/17at 15:11; Start 08/13/17 at 14:00; Stop 08/15/17 at 16:00; Status DC Enoxaparin Sodium (Lovenox Inj) 30 mg DAILY SQ Last administered on 08/21/17at 10 :02; Start 08/14/17 at 09:00 Fentanyl Citrate (fentaNYL INJ) 50 mcg STK-MED ONCE IV Last administered on 08/14at 10:00; Start 08/14/17 at 10:00; Stop 08/14/17 at 10:39; Status DC Midazolam HCl (Versed Inj) STK-MED ONCE IV ; Start 08/14/17 at 10:00; Stop at 10:39; Status DC Midazolam HCl (Versed Inj) 5 mg STK-MED ONCE .ROUTE Last administered on at 12:18; Start 08/15/17 at 12:18; Stop 08/15/17 at 12:19; Status DC Fentanyl Citrate (fentaNYL INJ) 250 mcg STK-MED ONCE .ROUTE Last administered on 08/15/17at 12:19; Start 08/15/17 at 12:19; Stop 08/15/17 at 12:20; Status DC Levofloxacin (Levaquin) 500 mg Q24H PO Last administered on 08/21/17 16:28; Start 08/15/17 at 16:00 Lorazepam (Ativan) 1 mg ONCE ONCE PO Last administered on 08/16/17at 02:48; Start 08/16/17 at 02:45; Stop 08/16/17 at 02:46; Status DC Lorazepam (Ativan) 1 mg DAILY@0800,1800,2300 PO Last administered on 08/21/17at 23:26; Start 08/16/17 at 18:00 Albuterol/ Ipratropium (Duoneb Neb) 1 ampule Q4HR WHILE AWAKE NEB NEB Last administered on 08/20/17at 12:47; Start 08/16/17 at 16:00; Stop 08/20/17 at 15:59; Status DC Methocarbamol (Robaxin) 500 mg TID PRN PO muscle spasm Last administered on 08/21 23:34; Start 08/16/17 at 14:30 Cetirizine HCl (ZyrTEC) 10 mg DAILY PO Last administered on 08/21/17at 10:02; Start 08/16/17 at 14:30 Senna/Docusate Sodium (Susu-Colace) 1 tab BID PO Last administered on 08/21/17 23:26; Start 08/18/17 at 21:00 Polyethylene Glycol (Miralax) 17 gm ONCE ONCE PO Last administered on at 16:51; Start 08/18/17 at 16:15; Stop 08/18/17 at 16:16; Status DC A/P Problem List: (1) Pneumothorax ICD Code: J93.9 - Pneumothorax, unspecified Plan: The patient presented with moderate sized right pleural effusion/ pneumothorax. The patient underwent ultrasound-guided thoracentesis with 1100 cc of fluid removed. Pneumothorax was treated with a chest tube placement. Cardiology and pulmonology managing the chest tube. Fluid appeared to be transudative. Negative for malignant cells. 2D echocardiogram showed an EF of 50-55% with left ventricular function is low normal. Chest x-ray on 08/18 still shows small right pneumothorax. CT surgery consulted by pulmonology. 08/21 appreciate cardiothoracic surgery consultation recommendations. As per CT surgery the patient has a persistent air leak with bullous emphysema. Repeat chest x-ray obtained on 08/20 showed a slightly larger right pneumothorax, CT of the chest on same date shows a large hydropneumothorax with more than fluid despite an appropriately positioned small-caliber chest tube. Will discuss with cardiothoracic surgery. NOT A SURGICAL CANDIDATE PER [facility]- CONSULT CCM FOR CHEST TUBE (2) COPD (chronic obstructive pulmonary disease) ICD Code: J44.9 - COPD (chronic obstructive pulmonary disease) Status: Chronic Plan: Continue O2 supplementation maintain O2 sats greater than 92%. Duo nebs every 4 hours and every 2 hours as needed. Levaquin 500 mg by mouth daily. [address] Jiménez his surgical technologist has been consulted. Appreciate recommendations. (3) Pleural effusion ICD Code: J90 - Pleural effusion, not elsewhere classified Status: Resolved Plan: Status post ultrasound-guided thoracentesis and chest tube placement. (4) Hyperglycemia ICD Code: R73.9 - Hyperglycemia, unspecified Status: Resolved Plan: Likely related to stress. Hemoglobin A1c obtained and 5.4%. Continue to monitor BMP Assessment and Plan DVT prophylaxis: SCDs, Lovenox subcutaneously. Discharge Planning Patient with worsening hydropneumothorax. Follow-up CT surgery recommendations. Patient still has a chest tube. CONSULT CCM FOR CHEST TUBE Discharge Planning NEEDS GOOD CHEST TUBE AND PNEUMOTHORAX RESOLUTION Shawn Azar DO Aug 22, 2017 12:37
[2017-08-22] MEDS: guaiFENesin E.R. 600 MG TAB PO SCH ×2 (12:45→22:44)
[2017-08-22] MEDS ORDERED: IOHEXOL 350 MG/ML 10 ML VIAL (for RAD DIAG) IVCONTRAST ONE (13:03)
[2017-08-22] MEDS ORDERED: MIDAZOLAM HCL 5 MG/ML VIAL (1 ML) ONE (13:34)
--- NOTE | 2017-08-22 13:42 | RADRPT ---
EXAM DATE/TIME: 08/22/2017 12:49 [facility] COMPARISON: No previous studies available for comparison. INDICATIONS : Pneumothorax. IV CONTRAST: 75 cc Omnipaque 350 (iohexol) IV RADIATION DOSE: 3.72 CTDIvol (mGy) MEDICAL HISTORY : Cardiovascular disease. Gastroesophageal reflux disease. Carcinoma, lung.Rad tx, chemo SURGICAL HISTORY : None. ENCOUNTER: Subsequent ACUITY: 2 days PAIN SCALE: 4/10 LOCATION: chest TECHNIQUE: Volumetric scanning of the chest was performed. Using automated exposure control and adjustment of t he mA and/or kV according to patient size, radiation dose was kept as low as reasonably achievable to obtain optimal diagnostic quality images. DICOM format image data is available electronically for review and comparison. Follow-up recommendations for detected pulmonary nodules are based at a minimum on nodule size and pa tient risk factors according to Fleischner Society Guidelines. FINDINGS Large right pneumothorax with emphysematous changes and blebs in the right lung. There is an a small amount of pleural effusion. Moderate emphysematous changes in the left lung. There is minimal subcutaneous emphysema present on the right. There is no axillary or mediastinal ad enopathy. CONCLUSION: Large right pneumothorax in spite of chest tube. Findings were called to the floor Shawn Meza MD FACR on August 22, 2017 at 13:33 Board Certified Radiologist. This report was verified electronically.
[2017-08-22] MEDS ORDERED: MIDAZOLAM HCL 5 MG/ML VIAL (1 ML) IV PUSH ONE (13:45)
--- NOTE | 2017-08-22 14:56 | PD.PROCEDR ---
Procedure Note Procedure DX: Right pneumothorax OP: Insertion Right Chest Tube #28 Fr ([id number]) Procedure: Time out performed. Discussed at bedside with patient and resident care associate. Pulse ox, heart rate, BP monitoring. Os 5 liters NC. Patient alert and cooperative. With patient sitting up 40 degrees midazolam 1 mg was administered iv. Patient remained conversant and responded to questions but some sedation occurred, suitable for procedure. The right lateral chest was prepped and draped. Using 1.5% lidocaine infiltration with epinephrine the skin and soft tissue over the 5th and 6th ribs was infiltrated at the anterior axillary line.After this the top of the 6th rib was infiltrated. A 2.5 cm horizontal incision was made over the 6th rib and a tunnel was created with blunt dissection to the top of the 5th rib. The 5th intercostal space was entered with a Crile clamp and the 28 Fr chest tube was delivered upward and posteriorly to 18 cm. Air and serous effusion fluid were returned with large air leak observed. Both new and old cts were connected to -20 suction. The patient remained conversant throughout the procedure and sats were maintained > 90%. We observed the patient for an additional 20 mins after the procedure, he remained alert and conversant. Bobo Wright MD Aug 22, 2017 14:56
--- NOTE | 2017-08-22 15:25 | RADRPT ---
EXAM DATE/TIME: 08/22/2017 15:01 [facility] COMPARISON: CHEST SINGLE AP, August 20, 2017, 6:32. INDICATIONS : S/p new chest tube for pneumothorax. MEDICAL HISTORY : Cardiovascular disease. Carcinoma, lung. radiation treatment chemotherapy SURGICAL HISTORY : None. ENCOUNTER: Initial ACUITY: 1 week PAIN SCORE: 0/10 LOCATION: Bilateral chest FINDINGS: Reexpansion of the right lung with residual 1.6 cm pneumothorax following placement of second chest t ube. Left lung clear. The heart and pulmonary vascularity are normal. CONCLUSION: Residual 1.6 cm right pneumothorax in spite of second chest tube Shawn Meza MD FACR on August 22, 2017 at 15:22 Board Certified Radiologist. This report was verified electronically.
[2017-08-22] MEDS: LEVOFLOXACIN 500 MG TAB PO SCH (16:33)
[2017-08-22] MEDS ORDERED: GLUCAGON 1 MG/ML VIAL OTHER PRN (20:45)
[2017-08-22] MEDS ORDERED: DEXTROSE 50% IN WATER 50 ML VIAL(D50) IV PUSH PRN (20:45)
--- NOTE | 2017-08-22 21:13 | RADRPT ---
EXAM DATE/TIME: 08/22/2017 20:45 [facility] COMPARISON: CHEST SINGLE AP, August 22, 2017, 15:01. INDICATIONS : Evaluate for pneumothorax. MEDICAL HISTORY : Cardiovascular disease. Carcinoma, lung. radiation treatment chemotherapy SURGICAL HISTORY : None. ENCOUNTER: Initial ACUITY: 1 day PAIN SCORE: 0/10 LOCATION: Bilateral chest FINDINGS: 2 right chest drainage tubes in place, a catheter with pigtail loop at the apex and a large bore cath eter in the medial right chest. There has been interval increase in size of right pneumothorax, now measuring 6.3 cm (previously measured 1.3 cm). The trachea remains midline. The left lung is clear. The heart is normal size. Significant increase in amount subcutaneous emphysema about the right ch est wall and supraclavicular region. CONCLUSION: Interval increase in right pneumothorax to 6.3 cm with [address] Nayan Mckeon MD on August 22, 2017 at 21:09 Board Certified Radiologist. This report was verified electronically.
[2017-08-22] MEDS: METHOCARBAMOL 500 MG TAB PO PRN (22:44)
[2017-08-22] MEDS ORDERED: ACETAMINOPHEN 325 MG TAB PO ONE (22:45)
[2017-08-23] VITALS (12 sets, daily range): BP systolic 100–117; BP diastolic 56–69; PULSE 87–127; RESP 16–22; TEMP 97.3–98.2; O2SAT 93–96
--- NOTE | 2017-08-23 01:21 | RADRPT ---
EXAM DATE/TIME: 08/23/2017 01:01 [facility] COMPARISON: CHEST SINGLE AP, August 22, 2017, 20:45. INDICATIONS : Pneumothorax MEDICAL HISTORY : Cardiovascular disease. Carcinoma, lung. radiation treatment. chemotherapy. SURGICAL HISTORY : None. ENCOUNTER: Subsequent ACUITY: 2 days PAIN SCORE: 0/10 LOCATION: Bilateral chest FINDINGS: 2 chest tubes again seen on the right. The moderate to large right apical pneumothorax persists and i s not significantly changed. No significant mediastinal shift or other evidence of tension demonstrat ed. There is patchy atelectasis of the right mid and lower lung. CONCLUSION: Moderate to large right pneumothorax persists without significant change. No definite tension. J Carlos Frederick MD on August 23, 2017 at 1:18 Board Certified Radiologist. This report was verified electronically.
[2017-08-23] MEDS ORDERED: ACETAMINOPHEN/HYDROcodone 325 MG/5 MG TAB PO ONE (02:45)
[2017-08-23] MEDS ORDERED: ACETAMINOPHEN/HYDROcodone 325 MG/7.5 MG TAB PO ONE (07:00)
[2017-08-23 08:09] LABS: AUTOMATED NEUTROPHIL # 17.5 TH/MM3 (1.8-7.7); BASOPHIL # 0.2 TH/MM3 (0-0.2); BASOPHIL % 0.8 % (0.0-2.0); EOSINOPHIL # 0.1 TH/MM3 (0-0.4); EOSINOPHIL % 0.6 % (0.0-4.0); HEMOGLOBIN 15.3 GM/DL (13.0-17.0); LYMPH % 6.8 % (9.0-44.0); LYMPHOCYTE # 1.4 TH/MM3 (1.0-4.8); MEAN CELL VOLUME 96.2 FL (80.0-100.0); MEAN CORPUSCULAR HEMOGLOBIN 32.6 PG (27.0-34.0); MEAN CORPUSCULAR HGB CONC 33.9 % (32.0-36.0); MEAN PLATELET VOLUME 11.4 FL (7.0-11.0); MONO % 4.9 % (0.0-8.0); NEUT % 86.9 % (16.0-70.0); PLATELET COUNT 215 TH/MM3 (150-450); RED BLOOD COUNT 4.68 MIL/MM3 (4.50-5.90); RED CELL DISTRIBUTION WIDTH 12.6 % (11.6-17.2); WHITE BLOOD COUNT 20.1 TH/MM3 (4.0-11.0)
[2017-08-23 08:42] LABS: ALBUMIN 3.2 GM/DL (3.4-5.0); ALKALINE PHOSPHATASE 78 U/L (45-117); ALT (GPT) 20 U/L (12-78); AST (GOT) 14 U/L (15-37); BICARBONATE 28.1 MEQ/L (21.0-32.0); BLOOD UREA NITROGEN 30 MG/DL (7-18); CALCIUM 8.5 MG/DL (8.5-10.1); CHLORIDE 100 MEQ/L (98-107); CREATININE 1.23 MG/DL (0.60-1.30); FREE T4 1.17 NG/DL (0.76-1.46); GLOMERULAR FILTRATION RATE 56 ML/MIN (>89); GLUCOSE,RANDOM 127 MG/DL (74-106); MAGNESIUM 2.3 MG/DL (1.5-2.5); PHOSPHORUS 3.9 MG/DL (2.5-4.9); SODIUM (NA) 138 MEQ/L (136-145); TOTAL BILIRUBIN ADULT 0.7 MG/DL (0.2-1.0); TOTAL PROTEIN 7.6 GM/DL (6.4-8.2)
[2017-08-23] MEDS: CETIRIZINE HCL 10 MG TAB PO SCH (09:14)
[2017-08-23] MEDS: DOCUSATE SODIUM 50 MG/SENNA 8.6 MG TAB PO SCH ×2 (09:14→20:47)
[2017-08-23] MEDS: METHOCARBAMOL 500 MG TAB PO PRN (09:14)
[2017-08-23] MEDS: LORazepam 1 MG TAB PO SCH ×2 (09:15→18:25)
[2017-08-23] MEDS: guaiFENesin E.R. 600 MG TAB PO SCH ×2 (09:15→20:47)
[2017-08-23] MEDS: SODIUM CHLORIDE 0.9% FLUSH 10 ML FLUSH IV FLUSH SCH ×3 (09:15→21:00)
[2017-08-23] MEDS: ASPIRIN EC 81 MG TABEC PO SCH (09:15)
[2017-08-23] MEDS: UMECLIDINIUM 62.5 MCG/VILANTEROL 25 MCG INHALER INH SCH (09:16)
[2017-08-23] MEDS: ENOXAPARIN SODIUM 30 MG/0.3 ML SYRINGE SQ SCH (09:16)
[2017-08-23 10:27] LABS: BANDS 3 % (0-6); LYMPHOCYTES 8 % (9-44); MONOCYTES 5 % (0-8); NEUTROPHIL # MANUAL DIFF 17.5 TH/MM3 (1.8-7.7); POLYS (SEG NEUTROPHILS) 84 % (16-70)
[2017-08-23] MEDS ORDERED: LACTULOSE SYRUP 20 GM/30 ML CUP PO PRN (11:30)
[2017-08-23] MEDS ORDERED: oxyCODONE/ACETAMINOPHEN 5 MG/325 MG TAB PO PRN (11:30)
[2017-08-23] MEDS ORDERED: ONDANSETRON HCL 4 MG/2 ML VIAL IVP PRN (11:30)
[2017-08-23] MEDS ORDERED: MORPHINE SULFATE 4 MG/ML INJ IV PUSH PRN (11:30)
[2017-08-23] MEDS ORDERED: NALOXONE HCL 0.4 MG/ML AMP IV PUSH PRN ×2 (11:30)
[2017-08-23] MEDS ORDERED: METOCLOPRAMIDE HCL 10 MG/2 ML VIAL IV PUSH PRN (11:30)
[2017-08-23] MEDS ORDERED: SODIUM CHLORIDE 0.9% FLUSH 10 ML FLUSH IV FLUSH PRN (11:30)
[2017-08-23] MEDS ORDERED: MAGNESIUM HYDROXIDE SUSP 30 ML CUP PO PRN (11:30)
[2017-08-23] MEDS ORDERED: ACETAMINOPHEN 325 MG TAB PO PRN ×2 (11:30)
[2017-08-23] MEDS ORDERED: BISACODYL 10 MG SUPP RECTAL PRN (11:30)
--- NOTE | 2017-08-23 11:51 | HHI.PR ---
Subjective Remarks Patient is on 2L oxygen with good sats. CXR this morning showed persistent PTX despite [address] No mediastinal shift or evidence of tension. Objective Vital Signs Vital Signs Date Time Temp Pulse Resp B/P (MAP) Pulse Ox O2 Delivery O2 Flow Rate FiO2 08/23/17 09:24 Nasal Cannula 2.00 08/23/17 09:21 93 Nasal Cannula 2.50 Humidified 08/23/17 07:59 97.7 87 16 116/69 (85) 95 08/23/17 04:30 93 08/23/17 04:00 98.0 99 17 117/63 (81) 93 08/23/17 00:30 103 08/23/17 00:00 97.3 100 17 101/56 (71) 96 08/22/17 23:08 Nasal Cannula 2.00 08/22/17 22:00 113 08/22/17 20:00 97.8 117 28 107/68 (81) 95 08/22/17 16:00 98.2 110 18 105/59 (74) 95 08/22/17 15:40 99 Nasal Cannula 2.00 08/22/17 12:00 97.3 101 18 101/57 (72) 99 I/O 08/22/17 08/22/17 08/22/17 08/23/17 08/23/17 08/23/17 07:00 15:00 23:00 07:00 15:00 23:00 Output Total 450 ml 320 ml Balance -450 ml -320 ml Output Urine Total 450 ml 250 ml Chest Tube Drainage Total 70 ml # Voids 0 # Bowel Movements 0 0 Result Diagram: 08/23/17 0640 08/23/17 0640 Other Results Last Impressions Chest X-Ray 08/23/17 0100 Signed Impressions: Service Date/Time: Wednesday, August 23, 2017 01:01 - CONCLUSION: Moderate to large right pneumothorax persists without significant change. No definite tension. J Carlos Frederick MD Chest CT 08/22/17 1119 Signed Impressions: Service Date/Time: Tuesday, August 22, 2017 12:49 - CONCLUSION: Large right pneumothorax in spite of chest tube. Findings were called to the floor Shawn Mzea MD FACR Chest Tube Insertion 08/15/17 0000 Signed Impressions: Service Date/Time: Tuesday, August 15, 2017 12:00 - CONCLUSION: Uncomplicated chest tube placement as above. J Carlos Bunch MD Chest Tube Change 08/14/17 0000 Signed Impressions: Service Date/Time: August 09:10 - CONCLUSION: Uncomplicated chest tube exchange as above. J Carlos Bunch MD Thoracentesis Ultrasound 08/13/17 0000 Signed Impressions: Service Date/Time: Sunday, August 13, 2017 11:45 - CONCLUSION: Right thoracentesis with with a subsequent right pneumothorax. This was treated with a 10 [place] catheter. The catheter was sutured in place and will need to be followed. J Carlos Diana MD CT Angiography [id number]/12/[id number] Signed Impressions: Service Date/Time: Saturday, August 12, 2017 20:57 - CONCLUSION: 1. No evidence of pulmonary embolism. 2. Right pleural effusion Charly Medrano MD Objective Remarks GENERAL: Frail elderly WM, mild sob SKIN: Warm and dry. HEAD: Normocephalic. EYES: No scleral icterus. No injection or drainage. NECK: Supple, trachea midline. No JVD or lymphadenopathy. CARDIOVASCULAR: Regular rate and rhythm without murmurs, gallops, or rubs. RESPIRATORY: Breath sounds equal bilaterally. No accessory muscle use. GASTROINTESTINAL: Abdomen soft, non-tender, nondistended. MUSCULOSKELETAL: No cyanosis, or edema. BACK: Nontender without obvious deformity. No CVA tenderness. Neuro: Awake and alert A/P Assessment and Plan 1)Resp Insuff 2) Perssitent Right PTX, s/p chest tube placement x2 3)COPD 4)Hx Lung ca 5)Malnutrition PLAN: Continue with oxygen keep sats >92% Bronchodilators, add Solumederol 40mg Q12 and Symbicort PFT 08/21 showed severe obstructive lung disease Chest tube to suction CXR this morning showed persistent PTX despite [address]. No mediastinal shift or evidence of tension. CTS is following Continue abx ( Levaquin) montiro for signs of infections ( fever, WBC) Consider palliative care eval to asses with goals of care Continue treatment plan. Donnie Puga MD Aug 23, 2017 11:51
[2017-08-23] MEDS: RESP: ALBUTEROL 2.5 MG/IPRATROPIUM 0.5 MG NEB (SCH) NEB ×3 (12:00→19:43)
[2017-08-23] MEDS: SENNOSIDES 8.6 MG TAB PO SCH (12:01)
[2017-08-23] MEDS: oxyCODONE/ACETAMINOPHEN 10 MG/325 MG TAB PO PRN ×2 (12:01→18:25)
[2017-08-23 12:30] LABS: HEMOGLOBIN A1C 5.5 % (4.3-6.0)
--- NOTE | 2017-08-23 12:32 | HHI.PR ---
Subjective Remarks 3-[address] OF CHEST [facility] ST[facility] POOR CANDIDATE FOR SURGERY AWAIT CHEST TUBE PLACEMENT BY [facility] DW RADIOLOGY THEY STATE THEY CANNOT DO A BIGGER CHEST TUBE- RECOMMENDED SURGERY/ CCM DW RN AND PT AND CM 3-10 HAS RIGHT SIDE PNEUMOTHORAX STILL EVEN WITH [address] DW RN AND PT AND FAMILY AND CASE MANAGEMENT POOR ORAL INTAKE START MEGACE AND ENSURE SEEN BY PULMONARY Objective Vitals Vital Signs Date Time Temp Pulse Resp B/P (MAP) Pulse Ox O2 Delivery O2 Flow Rate FiO2 08/23/17 09:24 Nasal Cannula 2.00 08/23/17 09:21 93 Nasal Cannula 2.50 Humidified 08/23/17 07:59 97.7 87 16 116/69 (85) 95 08/23/17 04:30 93 08/23/17 04:00 98.0 99 17 117/63 (81) 93 08/23/17 00:30 103 08/23/17 00:00 97.3 100 17 101/56 (71) 96 08/22/17 23:08 Nasal Cannula 2.00 08/22/17 22:00 113 08/22/17 20:00 97.8 117 28 107/68 (81) 95 08/22/17 16:00 98.2 110 18 105/59 (74) 95 08/22/17 15:40 99 Nasal Cannula 2.00 I/O 08/22/17 08/22/17 08/22/17 08/23/17 08/23/17 08/23/17 06:59 14:59 22:59 06:59 14:59 22:59 Output Total 450 ml 320 ml Balance -450 ml -320 ml Output Urine Total 450 ml 250 ml Chest Tube Drainage Total 70 ml # Voids 0 # Bowel Movements 0 0 Result Diagram: 08/23/17 0640 08/23/17 0640 Other Results Laboratory Tests Test 08/22/17 20:50 08/23/17 06:40 Blood Gas Puncture Site RT RADIAL Blood Gas Patient Temperature 98.6 Blood Gas HCO3 27 mmol/L Blood Gas Base Excess 3.3 mmol/L Blood Gas Oxygen Saturation 94 % Arterial Blood pH 7.44 Arterial Blood Partial Pressure CO2 40 mmHg Arterial Blood Partial Pressure O2 81 mmHg Arterial Blood Oxygen Content 19.4 Vol % Arterial Blood Carboxyhemoglobin 1.1 % Arterial Blood Methemoglobin 0.9 % Blood Gas Hemoglobin 14.6 G/DL Oxygen Delivery Device NASAL CANNULA Blood Gas Liter Flow 2 L/M White Blood Count 20.1 TH/MM3 Red Blood Count 4.68 MIL/MM3 Hemoglobin 15.3 GM/DL Hematocrit 45.0 % Mean Corpuscular Volume 96.2 FL Mean Corpuscular Hemoglobin 32.6 PG Mean Corpuscular Hemoglobin Concent 33.9 % Red Cell Distribution Width 12.6 % Platelet Count 215 TH/MM3 Mean Platelet Volume 11.4 FL Neutrophils (%) (Auto) 86.9 % Lymphocytes (%) (Auto) 6.8 % Monocytes (%) (Auto) 4.9 % Eosinophils (%) (Auto) 0.6 % Basophils (%) (Auto) 0.8 % Neutrophils # (Auto) 17.5 TH/MM3 Lymphocytes # (Auto) 1.4 TH/MM3 Monocytes # (Auto) 1.0 TH/MM3 Eosinophils # (Auto) 0.1 TH/MM3 Basophils # (Auto) 0.2 TH/MM3 CBC Comment AUTO DIFF Differential Total Cells Counted 100 Neutrophils % (Manual) 84 % Band Neutrophils % 3 % Lymphocytes % 8 % Monocytes % 5 % Neutrophils # (Manual) 17.5 TH/MM3 Differential Comment FINAL DIFF MANUAL Platelet Estimate NORMAL Platelet Morphology Comment ENLARGED Blood Urea Nitrogen 30 MG/DL Creatinine 1.23 MG/DL Random Glucose 127 MG/DL Total Protein 7.6 GM/DL Albumin 3.2 GM/DL Calcium Level 8.5 MG/DL Phosphorus Level 3.9 MG/DL Magnesium Level 2.3 MG/DL Alkaline Phosphatase 78 U/L Aspartate Amino Transf (AST/SGOT) 14 U/L Alanine Aminotransferase (ALT/SGPT) 20 U/L Total Bilirubin 0.7 MG/DL Sodium Level 138 MEQ/L Potassium Level 4.7 MEQ/L Chloride Level 100 MEQ/L Carbon Dioxide Level 28.1 MEQ/L Anion Gap 10 MEQ/L Estimat Glomerular Filtration Rate 56 ML/MIN Free Thyroxine 1.17 NG/DL Thyroid Stimulating Hormone 3rd Gen 5.400 uIU/ML Imaging Last Impressions Chest X-Ray 08/23/17 0100 Signed Impressions: Service Date/Time: Wednesday, August 23, 2017 01:01 - CONCLUSION: Moderate to large right pneumothorax persists without significant change. No definite tension. J Carlos Frederick MD Chest CT 08/22/17 1119 Signed Impressions: Service Date/Time: Tuesday, August 22, 2017 12:49 - CONCLUSION: Large right pneumothorax in spite of chest tube. Findings were called to the floor Shawn Meza MD FACR Chest Tube Insertion 08/15/17 0000 Signed Impressions: Service Date/Time: Tuesday, August 15, 2017 12:00 - CONCLUSION: Uncomplicated chest tube placement as above. J Carlos Bunch MD Chest Tube Change 08/14/17 0000 Signed Impressions: Service Date/Time: August 09:10 - CONCLUSION: Uncomplicated chest tube exchange as above. J Carlos Bunch MD Thoracentesis Ultrasound 08/13/17 0000 Signed Impressions: Service Date/Time: Sunday, August 13, 2017 11:45 - CONCLUSION: Right thoracentesis with with a subsequent right pneumothorax. This was treated with a 10 Bel[place]an catheter. The catheter was sutured in place and will need to be followed. J Carlos Diana MD CT Angiography [id number]/12/[id number] Signed Impressions: Service Date/Time: Saturday, August 12, 2017 20:57 - CONCLUSION: 1. No evidence of pulmonary embolism. 2. Right pleural effusion Charly Medrano MD Objective Remarks GENERAL: Patient is very cachectic, resting comfortably in bed, not in respiratory distress. SKIN: Skin is pale, no rash observed. HEENT: Head is normocephalic without any lesions or masses noted. Facial features are symmetric. Eyes: Extraocular muscles are intact. Conjunctivae were clear. NECK: Supple without any masses. Trachea midline, no deviation. No JVD. CARDIAC: Regular rhythm, regular rate. S1/S2 are heard. No murmurs gallops or rubs. LUNGS: Absent breath sounds on right hemithorax. . There is a continues blowing sound on the right upper lung field. Chest tube present on the right lung field draining serosanguineous fluid. ABDOMEN: Soft, nontender. Nondistended. Bowel sounds heard in all 4 quadrants. No organomegaly or masses. Negative rebound or guarding. EXTREMITIES: No edema, pulses are equal bilaterally. No cyanosis or clubbing. NEUROLOGY: Cranial nerves II through XII grossly intact. Moving all extremities , speech is clear. PSYCH: Mood and affect appropriate. Procedures Chest tube placement Medications and IVs Current Medications Sodium Chloride (NS Flush) 2 ml UNSCH PRN IVF FLUSH AFTER USING IV ACCESS; Start 08/12/17 at 19:30; Stop 08/12/17 at 22:37; Status DC Acetaminophen (Tylenol) 650 mg ONCE ONCE PO Last administered on 08/12/17at 22: 07; Start 08/12/17 at 21:00; Stop 08/12/17 at 21:01; Status DC Ceftriaxone Sodium 1000 mg/ Sodium Chloride 100 ml @ 200 mls/hr ONCE ONCE IV Last administered on 08/12/17at 21:00; Start 08/12/17 at 21:00; Stop 08/12/17 at 21:29; Status DC Azithromycin 500 mg/Sodium Chloride 250 ml @ 250 mls/hr ONCE ONCE IV Last administered on 08/12/17at 21:00; Start 08/12/17 at 21:00; Stop 08/12/17 at 21:59 ; Status DC Iohexol (Omnipaque 350 Inj) 75 ml STK-MED ONCE IVCONTRAST Last administered on 08/12/17at 21:12; Start 08/12/17 at 21:12; Stop 08/12/17 at 21:13; Status DC Sodium Chloride (NS Flush) 2 ml UNSCH PRN IV FLUSH FLUSH AFTER USING IV ACCESS ; Start 08/12/17 at 22:30 Sodium Chloride (NS Flush) 2 ml BID IV FLUSH Last administered on 08/23/17at 09: 15; Start 08/13/17 at 09:00 Heparin Sodium (Porcine) (Heparin Inj) 5,000 units Q8HR SQ ; Start 08/12/17 at 06:00; Status Cancel Naloxone HCl (Narcan Inj) 0.4 mg UNSCH PRN IV PUSH SEE LABEL COMMENTS; Start at 22:30; Stop 08/23/17 at 11:25; Status DC Albuterol/ Ipratropium (Duoneb Neb) 1 ampule Q4HR NEB NEB Last administered on 08/13/17at 07:58; Start 08/13/17 at 00:00; Stop 08/13/17 at 08:14; Status DC Albuterol/ Ipratropium (Duoneb Neb) 1 ampule Q2HR NEB PRN NEB sob, wheeze; Start 08/12/17 at 22:30 Heparin Sodium (Porcine) (Heparin Inj) 5,000 units Q8HR SQ Last administered on 08/13/17at 06:30; Start 08/13/17 at 06:00; Stop 08/13/17 at 17:29; Status DC Albuterol/ Ipratropium (Duoneb Neb) 1 ampule Q4HR WHILE AWAKE NEB NEB Last administered on 08/16/17at 12:20; Start 08/13/17 at 12:00; Stop 08/16/17 at 14:20; Status DC Aspirin (Ecotrin Ec) 81 mg DAILY PO Last administered on 08/23/17at 09:15; Start 08/14/17 at 09:00 Lorazepam (Ativan) 1 mg TID PO Last administered on 08/16/17at 09:12; Start 08/13 at 13:00; Stop 08/16/17 at 11:22; Status DC Levofloxacin (Levaquin) 750 mg Q2D PO ; Start 08/14/17 at 11:00; Stop 08/14/17 at 11:00; Status DC Enoxaparin Sodium (Lovenox Inj) 40 mg Q24H SQ ; Start 08/14/17 at 09:00; Stop 08/14/17 at 09:00; Status DC Enoxaparin Sodium (Lovenox Inj) 30 mg DAILY SQ ; Start 08/14/17 at 09:00; Stop at 09:00; Status DC Levofloxacin (Levaquin) 500 mg Q24H PO Last administered on 08/14/17at 15:11; Start 08/13/17 at 14:00; Stop 08/15/17 at 16:00; Status DC Enoxaparin Sodium (Lovenox Inj) 30 mg DAILY SQ Last administered on 08/21/17at 10 :02; Start 08/14/17 at 09:00 Fentanyl Citrate (fentaNYL INJ) 50 mcg STK-MED ONCE IV Last administered on 08/14at 10:00; Start 08/14/17 at 10:00; Stop 08/14/17 at 10:39; Status DC Midazolam HCl (Versed Inj) STK-MED ONCE IV ; Start 08/14/17 at 10:00; Stop at 10:39; Status DC Midazolam HCl (Versed Inj) 5 mg STK-MED ONCE .ROUTE Last administered on 12:18; Start 08/15/17 at 12:18; Stop 08/15/17 at 12:19; Status DC Fentanyl Citrate (fentaNYL INJ) 250 mcg STK-MED ONCE .ROUTE Last administered on 08/15/17 12:19; Start 08/15/17 at 12:19; Stop 08/15/17 at 12:20; Status DC Levofloxacin (Levaquin) 500 mg Q24H PO Last administered on 08/22/17 16:33; Start 08/15/17 at 16:00 Lorazepam (Ativan) 1 mg ONCE ONCE PO Last administered on 08/16/17 02:48; Start 08/16/17 at 02:45; Stop 08/16/17 at 02:46; Status DC Lorazepam (Ativan) 1 mg DAILY@0800,1800,2300 PO Last administered on 08/23/17at 09:15; Start 08/16/17 at 18:00 Albuterol/ Ipratropium (Duoneb Neb) 1 ampule Q4HR WHILE AWAKE NEB NEB Last administered on 08/20/17 12:47; Start 08/16/17 at 16:00; Stop 08/20/17 at 15:59; Status DC Methocarbamol (Robaxin) 500 mg TID PRN PO muscle spasm Last administered on 09:14; Start 08/16/17 at 14:30 Cetirizine HCl (ZyrTEC) 10 mg DAILY PO Last administered on 08/23/17 09:14; Start 08/16/17 at 14:30 Senna/Docusate Sodium (Susu-Colace) 1 tab BID PO Last administered on 09:14; Start 08/18/17 at 21:00; Stop 08/23/17 at 11:26; Status DC Polyethylene Glycol (Miralax) 17 gm ONCE ONCE PO Last administered on 16:51; Start 08/18/17 at 16:15; Stop 08/18/17 at 16:16; Status DC Guaifenesin (Mucinex Er) 600 mg BID PO Last administered on 08/23/17 09:15; Start 08/22/17 at 12:45 Iohexol (Omnipaque 350 Inj) 75 ml STK-MED ONCE IVCONTRAST Last administered on 08/22/17at 13:03; Start 08/22/17 at 13:03; Stop 08/22/17 at 13:04; Status DC Midazolam HCl (Versed Inj) 5 mg ONCE ONCE IV PUSH ; Start 08/22/17 at 13:45; Stop 08/22/17 at 14:07; Status DC Midazolam HCl (Versed Inj) 5 mg STK-MED ONCE .ROUTE ; Start 08/22/17 at 13:34; Stop 08/22/17 at 13:35; Status DC Dextrose (D50w (Vial) Inj) 50 ml UNSCH PRN IV PUSH HYPOGLYCEMIA-SEE COMMENTS; Start 08/22/17 at 20:45; Stop 08/22/17 at 20:45; Status DC Glucagon (Glucagon Inj) 1 mg UNSCH PRN OTHER HYPOGLYCEMIA-SEE COMMENTS; Start 08/22/17 at 20:45; Stop 08/22/17 at 20:45; Status DC Acetaminophen (Tylenol) 650 mg ONCE ONCE PO Last administered on 08/22/17at 22: 45; Start 08/22/17 at 22:45; Stop 08/22/17 at 22:46; Status DC Acetaminophen/ Hydrocodone Bitart ([place] 5-325 Mg) 1 tab ONCE ONCE PO Last administered on 08/23/17at 02:51; Start 08/23/17 at 02:45; Stop 08/23/17 at 02:46 ; Status DC Acetaminophen/ Hydrocodone Bitart ([place] 7.5-325 Mg) 1 tab ONCE ONCE PO Last administered on 08/23/17at 07:13; Start 08/23/17 at 07:00; Stop 08/23/17 at 07:01 ; Status DC Naloxone HCl (Narcan Inj) 0.4 mg UNSCH PRN IV PUSH SEE LABEL COMMENTS; Start at 11:30 Senna/Docusate Sodium (Susu-Colace) 1 tab BID PO ; Start 08/23/17 at 21:00 Magnesium Hydroxide (Milk Of Magnesia Liq) 30 ml Q12H PRN PO Mild constipation ; Start 08/23/17 at 11:30 Sennosides (Senokot) 17.2 mg Q12H PO Last administered on 08/23/17at 12:01; Start 08/23/17 at 12:00 Bisacodyl (Dulcolax Supp) 10 mg DAILY PRN RECTAL SEVERE CONSITIPATION; Start at 11:30 Lactulose (Lactulose Liq) 30 ml DAILY PRN PO SEVERE CONSITIPATION; Start at 11:30 Sodium Chloride (NS Flush) 2 ml UNSCH PRN IV FLUSH FLUSH AFTER USING IV ACCESS ; Start 08/23/17 at 11:30 Sodium Chloride (NS Flush) 2 ml BID IV FLUSH ; Start 08/23/17 at 21:00 Acetaminophen (Tylenol) 650 mg Q4H PRN PO TEMP > 100.4; Start 08/23/17 at 11:30 Ondansetron HCl (Zofran Inj) 4 mg Q6H PRN IVP NAUSEA OR VOMITING; Start at 11:30 Metoclopramide HCl (Reglan Inj) 5 mg Q6H PRN IV PUSH NAUSEA OR VOMITING; Start 08/23/17 at 11:30 Acetaminophen (Tylenol) 650 mg Q6H PRN PO PAIN SCALE 1 TO 2; Start 08/23/17 at 11:30 Oxycodone/ Acetaminophen (Percocet 5-325 Mg) 1 tab Q6H PRN PO PAIN SCALE 3 TO 5; Start 08/23/17 at 11:30 Oxycodone/ Acetaminophen (Percocet 10-325 Mg) 1 tab Q6H PRN PO PAIN SCALE 6 TO 10 Last administered on 08/23/17at 12:01; Start 08/23/17 at 11:30 Morphine Sulfate (Morphine Inj) 2 mg Q3H PRN IV PUSH Pain 3-5; ; Start at 11:30 Morphine Sulfate (Morphine Inj) 4 mg Q3H PRN IV PUSH Pain 6-10;; Start at 11:30 Morphine Sulfate (Morphine Inj) 4 mg Q1H PRN IV PUSH PAIN SCALE 7-10 ( INTRACTABLE); Start 08/23/17 at 11:30 Morphine Sulfate (Morphine Inj) 4 mg Q3H PRN IV PUSH BREAKTHROUGH PAIN; Start 08/23/17 at 11:30 Naloxone HCl (Narcan Inj) 0.4 mg UNSCH PRN IV PUSH SEE LABEL COMMENTS; Start at 11:30 Albuterol/ Ipratropium (Duoneb Neb) 1 ampule Q4HR NEB NEB ; Start 08/23/17 at 12:00 Methylprednisolone Sodium Succinate (SoluMEDROL INJ) 40 mg Q12HR IV PUSH ; Start 08/23/17 at 12:00 Budesonide/ Formoterol Fumarate (Symbicort 160-4.5 Mcg Inh) 2 puff Q12HR INH ; Start 08/23/17 at 12:00 A/P Problem List: (1) Pneumothorax ICD Code: J93.9 - Pneumothorax, unspecified Plan: The patient presented with moderate sized right pleural effusion/ pneumothorax. The patient underwent ultrasound-guided thoracentesis with 1100 cc of fluid removed. Pneumothorax was treated with a chest tube placement. Cardiology and pulmonology managing the chest tube. Fluid appeared to be transudative. Negative for malignant cells. 2D echocardiogram showed an EF of 50-55% with left ventricular function is low normal. Chest x-ray on 08/18 still shows small right pneumothorax. CT surgery consulted by pulmonology. 08/21 appreciate cardiothoracic surgery consultation recommendations. As per CT surgery the patient has a persistent air leak with bullous emphysema. Repeat chest x-ray obtained on 08/20 showed a slightly larger right pneumothorax, CT of the chest on same date shows a large hydropneumothorax with more than fluid despite an appropriately positioned small-caliber chest tube. Will discuss with cardiothoracic surgery. NOT A SURGICAL CANDIDATE PER [facility]- CONSULT CCM FOR CHEST TUBE HAD 2ND CHEST TUBE PLACED ON 08-22 BY [facility] STILL HAS MODERATE TO LARGE PNEUMOTHORAX ON 08-23 (2) COPD (chronic obstructive pulmonary disease) ICD Code: J44.9 - COPD (chronic obstructive pulmonary disease) Status: Chronic Plan: Continue O2 supplementation maintain O2 sats greater than 92%. Duo nebs every 4 hours and every 2 hours as needed. Levaquin 500 mg by mouth daily. Dr. Jiménez his supervisor telephone information has been consulted. Appreciate recommendations. (3) Pleural effusion ICD Code: J90 - Pleural effusion, not elsewhere classified Status: Resolved Plan: Status post ultrasound-guided thoracentesis and chest tube placement. (4) Hyperglycemia ICD Code: R73.9 - Hyperglycemia, unspecified Status: Resolved Plan: Likely related to stress. Hemoglobin A1c obtained and 5.4%. Continue to monitor BMP Assessment and Plan DVT prophylaxis: SCDs, Lovenox subcutaneously. Discharge Planning Patient with worsening hydropneumothorax. Follow-up CT surgery recommendations. Patient still has a chest tube. CONSULT CCM FOR CHEST TUBE PCM MODERATE TO SEVERE --WILL START MEGACE AND ENSURE DW RN AND PT AND FAMILY Discharge Planning NEEDS GOOD CHEST TUBE AND PNEUMOTHORAX RESOLUTION Shawn Azar DO Aug 23, 2017 12:32
[2017-08-23] MEDS: methylPREDNISolone SOD SUCC 40 MG/1 ML VIAL IV PUSH SCH ×2 (12:46→20:48)
[2017-08-23] MEDS: BUDESONIDE-FORMOTEROL 160/4.5 MCG INHALER INH SCH ×2 (12:46→21:00)
[2017-08-23] MEDS: LEVOFLOXACIN 500 MG TAB PO SCH (16:23)
[2017-08-23] MEDS: MEGESTROL ACETATE 40 MG TAB PO SCH (20:48)
--- NOTE | 2017-08-23 23:10 | EKG ---
Date Performed: 08/22/2017 Time Performed: 07:41:58 PTAGE: 86 years EKG: Sinus rhythm LOW QRS VOLTAGE IN EXTREMITY LEADS NON-SPECIFIC ST/T WAVE CHANGES BORDERLINE ECG PREVIOUS TRACING : 10/05/2014 02.47 Compared to prior tracing, rate has decreased DOCTOR: Cliff Gimenez Interpretating Date/Time 08/23/2017 23:09:33
[2017-08-24] VITALS (9 sets, daily range): BP systolic 97–102; BP diastolic 53–57; PULSE 104–125; RESP 17–24; TEMP 97–98.1; O2SAT 94–98
[2017-08-24] MEDS: RESP: ALBUTEROL 2.5 MG/IPRATROPIUM 0.5 MG NEB (SCH) NEB ×7 (00:02→23:34)
[2017-08-24] MEDS: oxyCODONE/ACETAMINOPHEN 10 MG/325 MG TAB PO PRN ×3 (00:09→18:19)
[2017-08-24] MEDS: SENNOSIDES 8.6 MG TAB PO SCH ×2 (00:10→12:20)
[2017-08-24] MEDS: AZITHROMYCIN INJ 500 MG in SODIUM CHLOR 0.9% 250 ML INJ 250 ML IV SCH (00:12)
[2017-08-24] MEDS: PIPERACIL-TAZO 4.5 GM PREMIX 100 ML IV SCH ×5 (00:12→21:42)
[2017-08-24] MEDS: LORazepam 1 MG TAB PO SCH ×4 (00:50→21:58)
--- NOTE | 2017-08-24 06:06 | RADRPT ---
EXAM DATE/TIME: 08/24/2017 03:53 [place] COMPARISON: CHEST SINGLE AP, August 23, 2017, 1:01. INDICATIONS : Pneumothorax. MEDICAL HISTORY : Chronic obstructive pulmonary disease. Cardiovascular disease. Carcinoma, lung. SURGICAL HISTORY : None. ENCOUNTER: Subsequent ACUITY: 3 days PAIN SCORE: Non-responsive. LOCATION: Bilateral chest FINDINGS: 2 chest tubes again seen on the right. The pneumothorax is now tiny and most perceptible at the base. There is mildly increased parenchymal consolidation of the right lung base. Right chest wall emphyse ma again noted. Left lung remains clear.. CONCLUSION: Decreased right pneumothorax, now very small. 2 [address] remain in place. Increased consolidation of the right base. J Carlos Frederick MD on August 24, 2017 at 6:03 Board Certified Radiologist. This report was verified electronically.
[2017-08-24] MEDS: guaiFENesin E.R. 600 MG TAB PO SCH ×2 (08:22→21:42)
[2017-08-24] MEDS: CETIRIZINE HCL 10 MG TAB PO SCH (08:22)
[2017-08-24] MEDS: ASPIRIN EC 81 MG TABEC PO SCH (08:22)
[2017-08-24] MEDS: DOCUSATE SODIUM 50 MG/SENNA 8.6 MG TAB PO SCH ×2 (08:22→21:42)
[2017-08-24] MEDS: methylPREDNISolone SOD SUCC 40 MG/1 ML VIAL IV PUSH SCH ×2 (08:23→21:41)
[2017-08-24] MEDS: ENOXAPARIN SODIUM 30 MG/0.3 ML SYRINGE SQ SCH (08:23)
[2017-08-24] MEDS: BUDESONIDE-FORMOTEROL 160/4.5 MCG INHALER INH SCH ×2 (08:24→21:00)
[2017-08-24] MEDS: UMECLIDINIUM 62.5 MCG/VILANTEROL 25 MCG INHALER INH SCH (08:36)
[2017-08-24] MEDS: SODIUM CHLORIDE 0.9% FLUSH 10 ML FLUSH IV FLUSH SCH ×3 (09:00→21:00)
--- NOTE | 2017-08-24 10:43 | HHI.PR ---
Subjective Remarks Patient is on 3L oxygen with good sats. CXR this morning showed decrease size PTX, [address] and increase conciliation in right lung base Objective Vital Signs Vital Signs Date Time Temp Pulse Resp B/P (MAP) Pulse Ox O2 Delivery O2 Flow Rate FiO2 08/24/17 08:25 98 Nasal Cannula 3.00 08/24/17 08:00 98.1 106 18 97/55 (69) 98 08/24/17 04:00 107 08/24/17 04:00 97.0 117 17 102/57 (72) 95 08/24/17 00:00 98.0 114 21 97/53 (68) 94 08/23/17 22:20 Nasal Cannula 2.50 Humidified 08/23/17 20:00 97.3 127 22 100/65 (77) 95 08/23/17 19:45 94 Nasal Cannula 2.00 08/23/17 16:03 97.6 94 18 116/61 (79) 95 08/23/17 16:00 92 08/23/17 16:00 94 Nasal Cannula 2.50 Humidified 08/23/17 12:37 98.2 91 18 116/65 (82) 96 08/23/17 12:00 97 I/O 08/23/17 08/23/17 08/23/17 08/24/17 08/24/17 08/24/17 06:59 14:59 22:59 06:59 14:59 22:59 Output Total 120 ml 405 ml Balance -120 ml -405 ml Output Urine Total 200 ml Chest Tube Drainage Total 120 ml 205 ml # Voids 0 # Bowel Movements 0 0 Result Diagram: 08/23/17 0640 08/23/17 0640 Other Results Last Impressions Chest X-Ray 08/24/17 0600 Signed Impressions: Service Date/Time: Thursday, August 24, 2017 03:53 - CONCLUSION: Decreased right pneumothorax, now very small. 2 chest tubes remain in place. Increased consolidation of the right base. J Carlos Frederick MD Chest CT 08/22/17 1119 Signed Impressions: Service Date/Time: Tuesday, August 22, 2017 12:49 - CONCLUSION: Large right pneumothorax in spite of chest tube. Findings were called to the floor Shawn Meza MD FACR Chest Tube Insertion 08/15/17 0000 Signed Impressions: Service Date/Time: Tuesday, August 15, 2017 12:00 - CONCLUSION: Uncomplicated chest tube placement as above. J Carlos Bunch MD Chest Tube Change 08/14/17 0000 Signed Impressions: Service Date/Time: August 09:10 - CONCLUSION: Uncomplicated chest tube exchange as above. J Carlos Bunch MD Thoracentesis Ultrasound 08/13/17 0000 Signed Impressions: Service Date/Time: Sunday, August 13, 2017 11:45 - CONCLUSION: Right thoracentesis with with a subsequent right pneumothorax. This was treated with a 10 [place]ik catheter. The catheter was sutured in place and will need to be followed. J Carlos Diana MD CT Angiography [id number]/12/[id number] Signed Impressions: Service Date/Time: Saturday, August 12, 2017 20:57 - CONCLUSION: 1. No evidence of pulmonary embolism. 2. Right pleural effusion Charly Medrano MD Objective Remarks GENERAL: Frail elderly WM, mild sob SKIN: Warm and dry. HEAD: Normocephalic. EYES: No scleral icterus. No injection or drainage. NECK: Supple, trachea midline. No JVD or lymphadenopathy. CARDIOVASCULAR: Regular rate and rhythm without murmurs, gallops, or rubs. RESPIRATORY: Breath sounds equal bilaterally. No accessory muscle use. GASTROINTESTINAL: Abdomen soft, non-tender, nondistended. MUSCULOSKELETAL: No cyanosis, or edema. BACK: Nontender without obvious deformity. No CVA tenderness. Neuro: Awake and alert A/P Assessment and Plan 1)Resp Insuff 2) Perssitent Right PTX, s/p chest tube placement x2 3)COPD 4)Hx Lung ca 5)Malnutrition 6) Right sided pneumonia 7) Leukocytosis PLAN: Continue with oxygen keep sats >92% Bronchodilators, Solumederol 40mg Q12 Symbicort PFT 08/21 showed severe obstructive lung disease Chest tube to suction CXR this morning showed decrease size PTX, [address] and increase conciliation in right lung base CTS is following Abx changed to Zosyn, Azithromycin, monitor for signs of infections ( fever, WBC ) NS 250ml bolus Follow up on BC from yesterday Palliative care consulted to asses with goals of care Consider hospice discussed with Dr. Azar Continue treatment plan. Donnie Puga MD Aug 24, 2017 10:43
[2017-08-24] MEDS: MEGESTROL ACETATE 40 MG TAB PO SCH ×2 (10:45→21:42)
[2017-08-24] MEDS ORDERED: SODIUM CHLOR 0.9% 250 ML INJ 250 ML IV ONE (10:45)
[2017-08-24] MEDS ORDERED: NITROGLYCERIN 0.4 MG SL 25 TABS/BTL SL PRN (11:15)
[2017-08-24] MEDS ORDERED: ASPIRIN 81 MG CHEW TAB PO ONE (11:45)
[2017-08-24] MEDS: SODIUM CHLOR 0.9% 1000 ML INJ 1,000 ML IV SCH (12:04)
[2017-08-24 12:11] LABS: TROPONIN I LESS THAN 0.02 NG/ML (0.02-0.05)
--- NOTE | 2017-08-24 12:14 | EKG ---
Date Performed: 08/24/2017 Time Performed: 10:22:47 PTAGE: 86 years EKG: SINUS TACHYCARDIA LOW QRS VOLTAGE IN EXTREMITY LEADS ABNORMAL RHYTHM ECG No significant rubens nge from prior electrocardiogram. PREVIOUS TRACING : 08/22/2017 07.41 DOCTOR: Daniel Scruggs Interpretating Date/Time 08/24/2017 12:13:32
[2017-08-24] MEDS: MORPHINE SULFATE 4 MG/ML INJ IV PUSH PRN (12:19)
--- NOTE | 2017-08-24 12:47 | HHI.PR ---
Subjective Remarks 3-[address] OF CHEST [facility] ST[facility] POOR CANDIDATE FOR SURGERY AWAIT CHEST TUBE PLACEMENT BY [facility] DW RADIOLOGY THEY STATE THEY CANNOT DO A BIGGER CHEST TUBE- RECOMMENDED SURGERY/ CCM DW RN AND PT AND CM 3-10 HAS RIGHT SIDE PNEUMOTHORAX STILL EVEN WITH [address] DW RN AND PT AND FAMILY AND CASE MANAGEMENT POOR ORAL INTAKE START MEGACE AND ENSURE SEEN BY PULMONARY 3-11 IMPROVEMENT OF PNEUMOTHORAX ON RIGHT HAVING CHEST PAIN ON THE RIGHT TREND TROPONINS AND EKGS SOME TACHYCARDIA DUE TO ALBUTEROL HAS PNEUMONIA NOW THAT LUNG IS INFLATED DW RN AND PT AND CM AND PULMONARY ON ZITHROMAX AND ZOSYN Objective Vitals Vital Signs Date Time Temp Pulse Resp B/P (MAP) Pulse Ox O2 Delivery O2 Flow Rate FiO2 08/24/17 11:00 97.7 125 24 98/57 (71) 94 08/24/17 08:25 98 Nasal Cannula 3.00 08/24/17 08:00 98.1 106 18 97/55 (69) 98 08/24/17 04:00 107 08/24/17 04:00 97.0 117 17 102/57 (72) 95 08/24/17 00:00 98.0 114 21 97/53 (68) 94 08/23/17 22:20 Nasal Cannula 2.50 Humidified 08/23/17 20:00 97.3 127 22 100/65 (77) 95 08/23/17 19:45 94 Nasal Cannula 2.00 08/23/17 16:03 97.6 94 18 116/61 (79) 95 08/23/17 16:00 92 08/23/17 16:00 94 Nasal Cannula 2.50 Humidified I/O 08/23/17 08/23/17 08/23/17 08/24/17 08/24/17 08/24/17 07:00 15:00 23:00 07:00 15:00 23:00 Output Total 120 ml 405 ml Balance -120 ml -405 ml Output Urine Total 200 ml Chest Tube Drainage Total 120 ml 205 ml # Voids 0 # Bowel Movements 0 0 Result Diagram: 08/23/17 0640 08/23/17 0640 Other Results Laboratory Tests Test 08/22/17 20:50 08/23/17 06:40 08/23/17 22:22 08/24/17 11:30 Blood Gas Puncture Site RT RADIAL Blood Gas Patient Temperature 98.6 Blood Gas HCO3 27 mmol/L Blood Gas Base Excess 3.3 mmol/L Blood Gas Oxygen Saturation 94 % Arterial Blood pH 7.44 Arterial Blood Partial Pressure CO2 40 mmHg Arterial Blood Partial Pressure O2 81 mmHg Arterial Blood Oxygen Content 19.4 Vol % Arterial Blood Carboxyhemoglobin 1.1 % Arterial Blood Methemoglobin 0.9 % Blood Gas Hemoglobin 14.6 G/DL Oxygen Delivery Device NASAL CANNULA Blood Gas Liter Flow 2 L/M White Blood Count 20.1 TH/MM3 Red Blood Count 4.68 MIL/MM3 Hemoglobin 15.3 GM/DL Hematocrit 45.0 % Mean Corpuscular Volume 96.2 FL Mean Corpuscular Hemoglobin 32.6 PG Mean Corpuscular Hemoglobin Concent 33.9 % Red Cell Distribution Width 12.6 % Platelet Count 215 TH/MM3 Mean Platelet Volume 11.4 FL Neutrophils (%) (Auto) 86.9 % Lymphocytes (%) (Auto) 6.8 % Monocytes (%) (Auto) 4.9 % Eosinophils (%) (Auto) 0.6 % Basophils (%) (Auto) 0.8 % Neutrophils # (Auto) 17.5 TH/MM3 Lymphocytes # (Auto) 1.4 TH/MM3 Monocytes # (Auto) 1.0 TH/MM3 Eosinophils # (Auto) 0.1 TH/MM3 Basophils # (Auto) 0.2 TH/MM3 CBC Comment AUTO DIFF Differential Total Cells Counted 100 Neutrophils % (Manual) 84 % Band Neutrophils % 3 % Lymphocytes % 8 % Monocytes % 5 % Neutrophils # (Manual) 17.5 TH/MM3 Differential Comment FINAL DIFF MANUAL Platelet Estimate NORMAL Platelet Morphology Comment ENLARGED Blood Urea Nitrogen 30 MG/DL Creatinine 1.23 MG/DL Random Glucose 127 MG/DL Total Protein 7.6 GM/DL Albumin 3.2 GM/DL Calcium Level 8.5 MG/DL Phosphorus Level 3.9 MG/DL Magnesium Level 2.3 MG/DL Alkaline Phosphatase 78 U/L Aspartate Amino Transf (AST/SGOT) 14 U/L Alanine Aminotransferase (ALT/SGPT) 20 U/L Total Bilirubin 0.7 MG/DL Sodium Level 138 MEQ/L Potassium Level 4.7 MEQ/L Chloride Level 100 MEQ/L Carbon Dioxide Level 28.1 MEQ/L Anion Gap 10 MEQ/L Estimat Glomerular Filtration Rate 56 ML/MIN Hemoglobin A1c 5.5 % Free Thyroxine 1.17 NG/DL Thyroid Stimulating Hormone 3rd Gen 5.400 uIU/ML Lactic Acid Level 3.3 mmol/L Total Creatine Kinase 106 U/L Troponin I LESS THAN 0.02 NG/ML Imaging Last Impressions Chest X-Ray 08/24/17 0600 Signed Impressions: Service Date/Time: Thursday, August 24, 2017 03:53 - CONCLUSION: Decreased right pneumothorax, now very small. 2 chest tubes remain in place. Increased consolidation of the right base. J Carlos Frederick MD Chest CT 08/22/17 1119 Signed Impressions: Service Date/Time: Tuesday, August 22, 2017 12:49 - CONCLUSION: Large right pneumothorax in spite of chest tube. Findings were called to the floor Shawn Meza MD FACR Chest Tube Insertion 08/15/17 0000 Signed Impressions: Service Date/Time: Tuesday, August 15, 2017 12:00 - CONCLUSION: Uncomplicated chest tube placement as above. J Carlos Bunch MD Chest Tube Change 08/14/17 0000 Signed Impressions: Service Date/Time: August 09:10 - CONCLUSION: Uncomplicated chest tube exchange as above. J Carlos Bunch MD Thoracentesis Ultrasound 08/13/17 0000 Signed Impressions: Service Date/Time: Sunday, August 13, 2017 11:45 - CONCLUSION: Right thoracentesis with with a subsequent right pneumothorax. This was treated with a 10 German catheter. The catheter was sutured in place and will need to be followed. J Carlos Diana MD CT Angiography 08/12/17 1926 Signed Impressions: Service Date/Time: Saturday, August 12, 2017 20:57 - CONCLUSION: 1. No evidence of pulmonary embolism. 2. Right pleural effusion Charly Medrano MD Objective Remarks GENERAL: Patient is very cachectic, resting comfortably in bed, not in respiratory distress. SKIN: Skin is pale, no rash observed. HEENT: Head is normocephalic without any lesions or masses noted. Facial features are symmetric. Eyes: Extraocular muscles are intact. Conjunctivae were clear. TONGUE IS MIDLINE NECK: Supple without any masses. Trachea midline, no deviation. No JVD. CARDIAC: Regular rhythm TACHY rate. S1/S2 are heard. No murmurs gallops or rubs. LUNGS: COARSE BREATH SOUNDS ON RIGHT NOW. Chest tube present on the right lung field draining serosanguineous fluid. COARSE BS ON THE LEFT ABDOMEN: Soft, nontender. Nondistended. Bowel sounds heard in all 4 quadrants. No organomegaly or masses. Negative rebound or guarding. EXTREMITIES: No edema, pulses are equal bilaterally. No cyanosis or clubbing. NEUROLOGY: Cranial nerves II through XII grossly intact. Moving all extremities , speech is clear. PSYCH: Mood and affect appropriate. Procedures Chest tubeS placement X2 Medications and IVs Current Medications Sodium Chloride (NS Flush) 2 ml UNSCH PRN IVF FLUSH AFTER USING IV ACCESS; Start 08/12/17 at 19:30; Stop 08/12/17 at 22:37; Status DC Acetaminophen (Tylenol) 650 mg ONCE ONCE PO Last administered on 08/12/17at 22: 07; Start 08/12/17 at 21:00; Stop 08/12/17 at 21:01; Status DC Ceftriaxone Sodium 1000 mg/ Sodium Chloride 100 ml @ 200 mls/hr ONCE ONCE IV Last administered on 08/12/17at 21:00; Start 08/12/17 at 21:00; Stop 08/12/17 at 21:29; Status DC Azithromycin 500 mg/Sodium Chloride 250 ml @ 250 mls/hr ONCE ONCE IV Last administered on 08/12/17at 21:00; Start 08/12/17 at 21:00; Stop 08/12/17 at 21:59 ; Status DC Iohexol (Omnipaque 350 Inj) 75 ml STK-MED ONCE IVCONTRAST Last administered on 08/12/17at 21:12; Start 08/12/17 at 21:12; Stop 08/12/17 at 21:13; Status DC Sodium Chloride (NS Flush) 2 ml UNSCH PRN IV FLUSH FLUSH AFTER USING IV ACCESS ; Start 08/12/17 at 22:30; Stop 08/24/17 at 11:32; Status DC Sodium Chloride (NS Flush) 2 ml BID IV FLUSH Last administered on 08/24/17at 09: 00; Start 08/13/17 at 09:00; Stop 08/24/17 at 11:32; Status DC Heparin Sodium (Porcine) (Heparin Inj) 5,000 units Q8HR SQ ; Start 08/12/17 at 06:00; Status Cancel Naloxone HCl (Narcan Inj) 0.4 mg UNSCH PRN IV PUSH SEE LABEL COMMENTS; Start at 22:30; Stop 08/23/17 at 11:25; Status DC Albuterol/ Ipratropium (Duoneb Neb) 1 ampule Q4HR NEB NEB Last administered on 08/13/17at 07:58; Start 08/13/17 at 00:00; Stop 08/13/17 at 08:14; Status DC Albuterol/ Ipratropium (Duoneb Neb) 1 ampule Q2HR NEB PRN NEB sob, wheeze; Start 08/12/17 at 22:30 Heparin Sodium (Porcine) (Heparin Inj) 5,000 units Q8HR SQ Last administered on 08/13/17at 06:30; Start 08/13/17 at 06:00; Stop 08/13/17 at 17:29; Status DC Albuterol/ Ipratropium (Duoneb Neb) 1 ampule Q4HR WHILE AWAKE NEB NEB Last administered on 08/16/17at 12:20; Start 08/13/17 at 12:00; Stop 08/16/17 at 14:20; Status DC Aspirin (Ecotrin Ec) 81 mg DAILY PO Last administered on 08/24/17at 08:22; Start 08/14/17 at 09:00; Stop 08/24/17 at 11:30; Status DC Lorazepam (Ativan) 1 mg TID PO Last administered on 08/16/17at 09:12; Start 08/13 at 13:00; Stop 08/16/17 at 11:22; Status DC Levofloxacin (Levaquin) 750 mg Q2D PO ; Start 08/14/17 at 11:00; Stop 08/14/17 at 11:00; Status DC Enoxaparin Sodium (Lovenox Inj) 40 mg Q24H SQ ; Start 08/14/17 at 09:00; Stop 08/14/17 at 09:00; Status DC Enoxaparin Sodium (Lovenox Inj) 30 mg DAILY SQ ; Start 08/14/17 at 09:00; Stop at 09:00; Status DC Levofloxacin (Levaquin) 500 mg Q24H PO Last administered on 08/14/17at 15:11; Start 08/13/17 at 14:00; Stop 08/15/17 at 16:00; Status DC Enoxaparin Sodium (Lovenox Inj) 30 mg DAILY SQ Last administered on 08/24/17 08:23; Start 08/14/17 at 09:00 Fentanyl Citrate (fentaNYL INJ) 50 mcg STK-MED ONCE IV Last administered on 08/14at 10:00; Start 08/14/17 at 10:00; Stop 08/14/17 at 10:39; Status DC Midazolam HCl (Versed Inj) STK-MED ONCE IV ; Start 08/14/17 at 10:00; Stop at 10:39; Status DC Midazolam HCl (Versed Inj) 5 mg STK-MED ONCE .ROUTE Last administered on at 12:18; Start 08/15/17 at 12:18; Stop 08/15/17 at 12:19; Status DC Fentanyl Citrate (fentaNYL INJ) 250 mcg STK-MED ONCE .ROUTE Last administered on 08/15/17at 12:19; Start 08/15/17 at 12:19; Stop 08/15/17 at 12:20; Status DC Levofloxacin (Levaquin) 500 mg Q24H PO Last administered on 08/23/17at 16:23; Start 08/15/17 at 16:00; Stop 08/23/17 at 22:01; Status DC Lorazepam (Ativan) 1 mg ONCE ONCE PO Last administered on 08/16/17at 02:48; Start 08/16/17 at 02:45; Stop 08/16/17 at 02:46; Status DC Lorazepam (Ativan) 1 mg DAILY@0800,1800,2300 PO Last administered on 08/24/17at 08:43; Start 08/16/17 at 18:00 Albuterol/ Ipratropium (Duoneb Neb) 1 ampule Q4HR WHILE AWAKE NEB NEB Last administered on 08/20/17at 12:47; Start 08/16/17 at 16:00; Stop 08/20/17 at 15:59; Status DC Methocarbamol (Robaxin) 500 mg TID PRN PO muscle spasm Last administered on 04/02at 09:14; Start 08/16/17 at 14:30 Cetirizine HCl (ZyrTEC) 10 mg DAILY PO Last administered on 08/24/17at 08:22; Start 08/16/17 at 14:30 Senna/Docusate Sodium (Susu-Colace) 1 tab BID PO Last administered on at 09:14; Start 08/18/17 at 21:00; Stop 08/23/17 at 11:26; Status DC Polyethylene Glycol (Miralax) 17 gm ONCE ONCE PO Last administered on at 16:51; Start 08/18/17 at 16:15; Stop 08/18/17 at 16:16; Status DC Guaifenesin (Mucinex Er) 600 mg BID PO Last administered on 08/24/17at 08:22; Start 08/22/17 at 12:45 Iohexol (Omnipaque 350 Inj) 75 ml STK-MED ONCE IVCONTRAST Last administered on 08/22/17at 13:03; Start 08/22/17 at 13:03; Stop 08/22/17 at 13:04; Status DC Midazolam HCl (Versed Inj) 5 mg ONCE ONCE IV PUSH ; Start 08/22/17 at 13:45; Stop 08/22/17 at 14:07; Status DC Midazolam HCl (Versed Inj) 5 mg STK-MED ONCE .ROUTE ; Start 08/22/17 at 13:34; Stop 08/22/17 at 13:35; Status DC Dextrose (D50w (Vial) Inj) 50 ml UNSCH PRN IV PUSH HYPOGLYCEMIA-SEE COMMENTS; Start 08/22/17 at 20:45; Stop 08/22/17 at 20:45; Status DC Glucagon (Glucagon Inj) 1 mg UNSCH PRN OTHER HYPOGLYCEMIA-SEE COMMENTS; Start 08/22/17 at 20:45; Stop 08/22/17 at 20:45; Status DC Acetaminophen (Tylenol) 650 mg ONCE ONCE PO Last administered on 08/22/17at 22: 45; Start 08/22/17 at 22:45; Stop 08/22/17 at 22:46; Status DC Acetaminophen/ Hydrocodone Bitart (Nazareth 5-325 Mg) 1 tab ONCE ONCE PO Last administered on 08/23/17at 02:51; Start 08/23/17 at 02:45; Stop 08/23/17 at 02:46 ; Status DC Acetaminophen/ Hydrocodone Bitart (Nazareth 7.5-325 Mg) 1 tab ONCE ONCE PO Last administered on 08/23/17at 07:13; Start 08/23/17 at 07:00; Stop 08/23/17 at 07:01 ; Status DC Naloxone HCl (Narcan Inj) 0.4 mg UNSCH PRN IV PUSH SEE LABEL COMMENTS; Start at 11:30; Stop 08/24/17 at 11:34; Status DC Senna/Docusate Sodium (Susu-Colace) 1 tab BID PO Last administered on at 08:22; Start 08/23/17 at 21:00 Magnesium Hydroxide (Milk Of Magnesia Liq) 30 ml Q12H PRN PO Mild constipation ; Start 08/23/17 at 11:30 Sennosides (Senokot) 17.2 mg Q12H PO Last administered on 08/24/17at 12:20; Start 08/23/17 at 12:00 Bisacodyl (Dulcolax Supp) 10 mg DAILY PRN RECTAL SEVERE CONSITIPATION; Start at 11:30 Lactulose (Lactulose Liq) 30 ml DAILY PRN PO SEVERE CONSITIPATION; Start at 11:30 Sodium Chloride (NS Flush) 2 ml UNSCH PRN IV FLUSH FLUSH AFTER USING IV ACCESS ; Start 08/23/17 at 11:30 Sodium Chloride (NS Flush) 2 ml BID IV FLUSH ; Start 08/23/17 at 21:00 Acetaminophen (Tylenol) 650 mg Q4H PRN PO TEMP > 100.4; Start 08/23/17 at 11:30 Ondansetron HCl (Zofran Inj) 4 mg Q6H PRN IVP NAUSEA OR VOMITING; Start at 11:30 Metoclopramide HCl (Reglan Inj) 5 mg Q6H PRN IV PUSH NAUSEA OR VOMITING; Start 08/23/17 at 11:30 Acetaminophen (Tylenol) 650 mg Q6H PRN PO PAIN SCALE 1 TO 2; Start 08/23/17 at 11:30 Oxycodone/ Acetaminophen (Percocet 5-325 Mg) 1 tab Q6H PRN PO PAIN SCALE 3 TO 5; Start 08/23/17 at 11:30 Oxycodone/ Acetaminophen (Percocet 10-325 Mg) 1 tab Q6H PRN PO PAIN SCALE 6 TO 10 Last administered on 08/24/17at 10:45; Start 08/23/17 at 11:30 Morphine Sulfate (Morphine Inj) 2 mg Q3H PRN IV PUSH Pain 3-5; ; Start at 11:30 Morphine Sulfate (Morphine Inj) 4 mg Q3H PRN IV PUSH Pain 6-10;; Start at 11:30 Morphine Sulfate (Morphine Inj) 4 mg Q1H PRN IV PUSH PAIN SCALE 7-10 ( INTRACTABLE); Start 08/23/17 at 11:30 Morphine Sulfate (Morphine Inj) 4 mg Q3H PRN IV PUSH BREAKTHROUGH PAIN Last administered on 08/24/17at 12:19; Start 08/23/17 at 11:30 Naloxone HCl (Narcan Inj) 0.4 mg UNSCH PRN IV PUSH SEE LABEL COMMENTS; Start at 11:30 Albuterol/ Ipratropium (Duoneb Neb) 1 ampule Q4HR NEB NEB Last administered on 08/24/17at 08:22; Start 08/23/17 at 12:00 Methylprednisolone Sodium Succinate (SoluMEDROL INJ) 40 mg Q12HR IV PUSH Last administered on 08/24/17at 08:23; Start 08/23/17 at 12:00 Budesonide/ Formoterol Fumarate (Symbicort 160-4.5 Mcg Inh) 2 puff Q12HR INH Last administered on 08/24/17at 08:24; Start 08/23/17 at 12:00 Megestrol Acetate (Megace) 400 mg Q12HR PO Last administered on 08/24/17at 10:45 ; Start 08/23/17 at 21:00 Piperacillin Sod/ Tazobactam Sod 100 ml @ 200 mls/hr Q6H IV Last administered on 08/24/17at 11:05; Start 08/23/17 at 22:00 Azithromycin 500 mg/Sodium Chloride 250 ml @ 250 mls/hr Q24H IV Last administered on 08/24/17at 00:12; Start 08/23/17 at 23:00 Sodium Chloride 250 ml @ 250 mls/hr BOLUS ONCE IV ; Start 08/24/17 at 10:45; Stop 08/24/17 at 11:44; Status DC Aspirin (Aspirin Chew) 243 mg NOW ONCE PO Last administered on 08/24/17at 12:19 ; Start 08/24/17 at 11:45; Stop 08/24/17 at 11:46; Status DC Aspirin (Aspirin) 325 mg DAILY PO ; Start 08/25/17 at 09:00 Nitroglycerin (Nitrostat Sl) 0.4 mg Q5M PRN SL X 3 doses for chest pain; Start 08/24/17 at 11:15 Sodium Chloride 1,000 ml @ 100 mls/hr Q10H IV ; Start 08/24/17 at 12:04 A/P Problem List: (1) Pneumothorax ICD Code: J93.9 - Pneumothorax, unspecified Plan: The patient presented with moderate sized right pleural effusion/ pneumothorax. The patient underwent ultrasound-guided thoracentesis with 1100 cc of fluid removed. Pneumothorax was treated with a chest tube placement. Cardiology and pulmonology managing the chest tube. Fluid appeared to be transudative. Negative for malignant cells. 2D echocardiogram showed an EF of 50-55% with left ventricular function is low normal. Chest x-ray on 08/18 still shows small right pneumothorax. CT surgery consulted by pulmonology. 08/21 appreciate cardiothoracic surgery consultation recommendations. As per CT surgery the patient has a persistent air leak with bullous emphysema. Repeat chest x-ray obtained on 08/20 showed a slightly larger right pneumothorax, CT of the chest on same date shows a large hydropneumothorax with more than fluid despite an appropriately positioned small-caliber chest tube. Will discuss with cardiothoracic surgery. NOT A SURGICAL CANDIDATE PER [facility]- CONSULT [facility] FOR CHEST TUBE HAD 2ND CHEST TUBE PLACED ON 08-22 BY [facility] STILL HAS MODERATE TO LARGE PNEUMOTHORAX ON 08-23 MUCH LESS PNEUMOTHORAX ON RIGHT NOW HAS PNEUMONIA AT RIGHT BASE ON ZITHROMAX AND ZOSYN DW PULM (2) COPD (chronic obstructive pulmonary disease) ICD Code: J44.9 - COPD (chronic obstructive pulmonary disease) Status: Chronic Plan: Continue O2 supplementation maintain O2 sats greater than 92%. Duo nebs every 4 hours and every 2 hours as needed. Levaquin 500 mg by mouth daily. Dr. Jiménez his industrial technician has been consulted. Appreciate recommendations. (3) Pleural effusion ICD Code: J90 - Pleural effusion, not elsewhere classified Status: Resolved Plan: Status post ultrasound-guided thoracentesis and chest tube placement. (4) Hyperglycemia ICD Code: R73.9 - Hyperglycemia, unspecified Status: Resolved Plan: Likely related to stress. Hemoglobin A1c obtained and 5.4%. Continue to monitor BMP Assessment and Plan DVT prophylaxis: SCDs, Lovenox subcutaneously. Discharge Planning Patient with worsening hydropneumothorax. Follow-up CT surgery recommendations. Patient still has a chest tube. CONSULT CCM FOR CHEST TUBE PCM MODERATE TO SEVERE --WILL START MEGACE AND ENSURE DW RN AND PT AND FAMILY ATYPICAL CHEST PAIN ON RIGHT SIDE TREND TROPONINS NEB TREATMENTS ANTIBIOTICS PAIN CONTROL DW RN AND PT Discharge Planning NEEDS GOOD CHEST TUBE AND PNEUMOTHORAX RESOLUTION Shawn Azar DO Aug 24, 2017 12:47
[2017-08-24 17:41] LABS: TROPONIN I LESS THAN 0.02 NG/ML (0.02-0.05)
[2017-08-25] VITALS (11 sets, daily range): BP systolic 91–151; BP diastolic 55–72; PULSE 101–120; RESP 18–20; TEMP 97.1–98.3; O2SAT 91–95
[2017-08-25] MEDS: AZITHROMYCIN INJ 500 MG in SODIUM CHLOR 0.9% 250 ML INJ 250 ML IV SCH (00:12)
[2017-08-25] MEDS: SENNOSIDES 8.6 MG TAB PO SCH ×2 (00:12→10:43)
[2017-08-25] MEDS: oxyCODONE/ACETAMINOPHEN 10 MG/325 MG TAB PO PRN ×4 (00:14→18:06)
[2017-08-25] MEDS: RESP: ALBUTEROL 2.5 MG/IPRATROPIUM 0.5 MG NEB (SCH) NEB ×6 (04:00→23:52)
[2017-08-25] MEDS: PIPERACIL-TAZO 4.5 GM PREMIX 100 ML IV SCH ×4 (05:23→21:15)
[2017-08-25] MEDS: SODIUM CHLOR 0.9% 1000 ML INJ 1,000 ML IV SCH ×3 (05:23→18:07)
[2017-08-25] MEDS: MORPHINE SULFATE 4 MG/ML INJ IV PUSH PRN (06:32)
--- NOTE | 2017-08-25 06:56 | RADRPT ---
EXAM DATE/TIME: 08/25/2017 06:05 [place] COMPARISON: CHEST SINGLE AP, August 24, 2017, 3:53. INDICATIONS : Short of breath, pain all over back and chest, evaluate pneumonia, pneumothorax MEDICAL HISTORY : Chronic obstructive pulmonary disease. Cardiovascular disease. Carcinoma, lung. SURGICAL HISTORY : chest tube x 2 ENCOUNTER: Subsequent ACUITY: 4 - 6 days PAIN SCORE: 10/10 LOCATION: Bilateral chest FINDINGS: A single portable frontal view the chest shows 2 thoracostomy tubes on the right. A small apical pneu mothorax which is stable. Left lung is clear. Consolidation throughout the right mid lung and lower l obe is more pronounced than the prior study. Subcutaneous air overlies the right chest. Heart is norm al in size. CONCLUSION: 1. 2 thoracostomy tubes on the right with small apical pneumothorax which is stable. 2. Worsening consolidation involving the right mid lung and lower lobe. Nayan Han Jr., MD on August 25, 2017 at 6:53 Board Certified Radiologist. This report was verified electronically.
[2017-08-25] MEDS: LORazepam 1 MG TAB PO SCH ×2 (08:00→18:06)
[2017-08-25 08:48] LABS: AUTOMATED NEUTROPHIL # 21.9 TH/MM3 (1.8-7.7); BASOPHIL % 0.1 % (0.0-2.0); HEMATOCRIT 39.4 % (39.0-51.0); HEMOGLOBIN 13.1 GM/DL (13.0-17.0); LYMPH % 1.9 % (9.0-44.0); LYMPHOCYTE # 0.5 TH/MM3 (1.0-4.8); MEAN CELL VOLUME 96.8 FL (80.0-100.0); MEAN CORPUSCULAR HEMOGLOBIN 32.3 PG (27.0-34.0); MEAN CORPUSCULAR HGB CONC 33.4 % (32.0-36.0); MEAN PLATELET VOLUME 10.7 FL (7.0-11.0); MONO % 3.8 % (0.0-8.0); MONOCYTE # 0.9 TH/MM3 (0-0.9); NEUT % 94.2 % (16.0-70.0); PLATELET COUNT 142 TH/MM3 (150-450); RED BLOOD COUNT 4.07 MIL/MM3 (4.50-5.90); RED CELL DISTRIBUTION WIDTH 12.7 % (11.6-17.2); WHITE BLOOD COUNT 23.2 TH/MM3 (4.0-11.0)
[2017-08-25 09:10] LABS: MAGNESIUM 2.3 MG/DL (1.5-2.5); PHOSPHORUS 2.9 MG/DL (2.5-4.9)
[2017-08-25] MEDS: methylPREDNISolone SOD SUCC 40 MG/1 ML VIAL IV PUSH SCH ×2 (10:25→21:16)
[2017-08-25] MEDS: CETIRIZINE HCL 10 MG TAB PO SCH (10:29)
[2017-08-25] MEDS: ENOXAPARIN SODIUM 30 MG/0.3 ML SYRINGE SQ SCH (10:30)
[2017-08-25] MEDS: ASPIRIN 325 MG TAB PO SCH (10:37)
[2017-08-25] MEDS: guaiFENesin E.R. 600 MG TAB PO SCH ×2 (10:38→21:15)
[2017-08-25] MEDS: DOCUSATE SODIUM 50 MG/SENNA 8.6 MG TAB PO SCH ×2 (10:38→21:15)
[2017-08-25] MEDS: SODIUM CHLORIDE 0.9% FLUSH 10 ML FLUSH IV FLUSH SCH ×2 (10:42→21:16)
--- NOTE | 2017-08-25 10:43 | PD.CONS ---
Consult Service Palliative Care Consult Requested By Dr. Azar . Primary Care Physician Shawn Matute DO . Reason for Consultation a. To assist with evaluation and management of symptoms including: Pain, short of breath b. To assist medical decision maker(s) with: better understanding of current medical conditions; weighing benefits/burdens of medical treatment options; making medical treatment decisions. . HPI History of Present Illness This 86-year-old male, with a past history of non-small cell lung cancer 2012) received radiation and chemotherapy and has had no known recurrent or residual disease since then), moderately severe COPD, PVD, and weight loss, presented to the hospital on 08/12/17 because of a couple days of cough and feeling feverish. He had some worsened shortness of breath, but no chest pain. In the emergency department, findings included: * Alert, mildly dyspneic * Temp 100.8, pulse 102, respirations 18, blood pressure 119/72, oxygen saturation 95% on room air * White count 13.1, hemoglobin 13.9 * Sodium 136, creatinine 1.10, albumin 4.2 * CT of the chest with no evidence of PE, but a moderately large right pleural effusion Cultures were obtained, the patient was begun on antibiotics, and he was admitted. He underwent a thoracentesis following day and developed a pneumothorax. A chest tube was placed, but the patient continued to have persistent air leak. CT scan revealed bullous emphysema, and CT surgery saw the patient on 08/20/17, feeling he was not a candidate for surgical intervention. His cytology from the pleural fluid returned negative for any malignant cells; an echocardiogram revealed EF 50-55%. On 08/22/17, another chest tube was placed, and the patient continues to have both tubes in place, and I see some continued air leak now. Chest x-ray on 08/24 revealed the lungs to be reinflated, but there was evidence of pneumonia. His white count was now 20, and creatinine 1.23. Palliative Care was consulted to assist with symptom management, and to enter into discussions with the patient and family regarding his current illnesses, the prognosis, and the benefits and burdens of the various treatment choices. . Function/Cognitive Trajectory The patient has been declining slowly over the past 4 years, and he says he has lost 40 pounds during that time, although he did not think that he lost any weight the past couple months. He was living by himself, but he was requiring a walker to get around because of weakness and debility. He remained mentally clear. . Review of Systems Constitutional: COMPLAINS OF: Fever Endocrine: DENIES: Polyuria Eyes: DENIES: Eye inflammation Ears, nose, mouth, throat: DENIES: Epistaxis Respiratory: COMPLAINS OF: Cough, Shortness of breath Cardiovascular: COMPLAINS OF: Chest pain (related to the chest tubes), DENIES: Syncope Gastrointestinal: DENIES: Bloody stools, Diarrhea, Vomiting, Vomiting blood Genitourinary: DENIES: Hematuria Musculoskeletal: DENIES: Back pain Integumentary: DENIES: Rash Hematologic/Lymphatics: DENIES: Bruising Immunologic/Allergic: DENIES: Urticaria Neurologic: DENIES: Localized weakness, Paresthesias, Seizures Psychiatric: COMPLAINS OF: Anxiety (in the past), DENIES: Depression, Hallucinations, Agitation Past Family Social History Coded Allergies: No Known Allergies (Verified Adverse Reaction, Unknown, 08/12/17) Past Medical History * Moderately severe COPD, bullous emphysema * Peripheral vascular disease * Skin cancers * Degenerative joint disease * Anxiety in the past * BPH * history of irregular heartbeat in the past . Past Surgical History * A knee fracture with surgery at age 15 * Tonsils many years ago * Bilateral cataracts * Colonoscopy and EGD in 2010 * Left hip fracture 2011 * Right hip surgery 2013 * Port 2012 * Skin cancer removal * Chest tubes 3 during this hospitalization . Reported Medications Reported Meds & Active Scripts Active Zyrtec (Cetirizine HCl) 10 Mg Capsule 1 Tab PO DAILY 14 Days Reported Naproxen 500 Mg Tab 500 Mg PO BID Methocarbamol 500 Mg Tab 500 Mg PO TID Norvasc (Amlodipine Besylate) 10 Mg Tab 10 Mg PO DAILY Saw [place] Extract (Saw [place]-Zinc) 160-15 mg Cap 2 Cap PO DAILY Proventil Hfa 6.7 GM Inh (Albuterol Sulfate) 90 Mcg/Act Aer 1 Puff INH TID PRN Aspir-Low (Aspirin) 81 Mg Tabdr 81 Mg PO DAILY Co Q-10 (Coenzyme Q10 (Ubidecarenone)) 150 Mg Cap 150 Mg PO HS Lorazepam 1 Mg Tab 1 Mg PO TID Anoro Ellipta Inh (Umeclidinium/Vilanterol) 62.5-25 Mcg/Act Aero 1 Puff INH DAILY . Current Medications Medications (Trade) Dose Ordered Sig/Donny Route Start Time Stop Time Status Last Admin (Duoneb Neb) 1 ampule Q2HR NEB PRN NEB 08/12/17 22:30 (Lovenox Inj) 30 mg DAILY SQ 08/14/17 09:00 08/24/17 08:23 (Ativan) 1 mg DAILY@0800,1800,2300 PO 08/16/17 18:00 08/24/17 21:58 (Robaxin) 500 mg TID PRN PO 08/16/17 14:30 08/23/17 09:14 (ZyrTEC) 10 mg DAILY PO 08/16/17 14:30 08/24/17 08:22 (Mucinex Er) 600 mg BID PO 08/22/17 12:45 08/24/17 21:42 (Susu-Colace) 1 tab BID PO 08/23/17 21:00 08/24/17 21:42 (Milk Of Magnesia Liq) 30 ml Q12H PRN PO 08/23/17 11:30 (Senokot) 17.2 mg Q12H PO 08/23/17 12:00 08/25/17 00:12 (Dulcolax Supp) 10 mg DAILY PRN RECTAL 08/23/17 11:30 (Lactulose Liq) 30 ml DAILY PRN PO 08/23/17 11:30 (NS Flush) 2 ml UNSCH PRN IV FLUSH 08/23/17 11:30 (NS Flush) 2 ml BID IV FLUSH 08/23/17 21:00 (Tylenol) 650 mg Q4H PRN PO 08/23/17 11:30 (Zofran Inj) 4 mg Q6H PRN IVP 08/23/17 11:30 (Reglan Inj) 5 mg Q6H PRN IV PUSH 08/23/17 11:30 (Tylenol) 650 mg Q6H PRN PO 08/23/17 11:30 (Percocet 5-325 Mg) 1 tab Q6H PRN PO 08/23/17 11:30 (Percocet 10-325 Mg) 1 tab Q6H PRN PO 08/23/17 11:30 08/25/17 05:44 (Morphine Inj) 2 mg Q3H PRN IV PUSH 08/23/17 11:30 (Morphine Inj) 4 mg Q3H PRN IV PUSH 08/23/17 11:30 (Morphine Inj) 4 mg Q1H PRN IV PUSH 08/23/17 11:30 (Morphine Inj) 4 mg Q3H PRN IV PUSH 08/23/17 11:30 08/25/17 06:32 (Narcan Inj) 0.4 mg UNSCH PRN IV PUSH 08/23/17 11:30 (Duoneb Neb) 1 ampule Q4HR NEB NEB 08/23/17 12:00 08/25/17 08:18 (SoluMEDROL INJ) 40 mg Q12HR IV PUSH 08/23/17 12:00 08/24/17 21:41 (Symbicort 160-4.5 Mcg Inh) 2 puff Q12HR INH 08/23/17 12:00 08/24/17 08:24 (Megace) 400 mg Q12HR PO 08/23/17 21:00 08/24/17 21:42 Piperacillin Sod/ Tazobactam Sod 100 ml @ 200 mls/hr Q6H IV 08/23/17 22:00 08/25/17 05:23 Azithromycin 500 mg/Sodium Chloride 250 ml @ 250 mls/hr Q24H IV 08/23/17 23:00 08/25/17 00:12 (Aspirin) 325 mg DAILY PO 08/25/17 09:00 (Nitrostat Sl) 0.4 mg Q5M PRN SL 08/24/17 11:15 Sodium Chloride 1,000 ml @ 100 mls/hr Q10H IV 08/24/17 12:04 08/25/17 05:23 Family History The patient's mother of lung cancer, and his father of complications from CVA. One sister of cervical cancer. His daughter is living and has COPD. . Substance Use Tobacco: Smoked for many years but quit more than 30 years ago. Alcohol: None Prescription med abuse: None Illicits: None. Psychosocial History The patient was born and raised in [place], lived in [place] for several years, and came to [place] in 1963. He did with his until she 3 years ago and has been living on his own since then. The patient has one daughter living in [facility], and has 2 grandchildren. 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 . Spiritual/Cultural Factors The patient is Oriental Orthodox, and spirituality is very important for him. A websphere portal architect has visited him here in the hospital. . Living Will: Never completed Health Care Surrogate: Completed, but not made available Durable Power of Help Desk Engineer: Completed, but not made available Health Care Surrogate(s): Patient's daughter Melanie . Today's verbally stated goals: The patient is very clear that he would not want any resuscitation and would not want to be on life support. He does recognize that he has declined significantly over the past couple weeks in the hospital, that it is unlikely that he will be able to return home to live alone, and he is actually considering whether to transition to hospice services to focus on his symptoms and comfort. . Family/friends goals: The patient's daughter supports the patient's goals . Ethical and Legal Issues There are no ethical issues that would impact his care were decision-making at this time. The patient has capacity for decision-making. He reports that his daughter is the designated health care surrogate. . Physical Exam Vital Signs Date Time Temp Pulse Resp B/P (MAP) Pulse Ox O2 Delivery O2 Flow Rate FiO2 08/25/17 08:25 93 Nasal Cannula 2.00 08/25/17 08:19 97.6 112 20 151/72 (98) 94 08/25/17 04:00 106 08/25/17 04:00 98.3 119 20 111/63 (79) 94 08/25/17 00:00 118 08/25/17 00:00 97.4 101 18 97/57 (70) 94 08/24/17 21:58 94 Nasal Cannula 2.00 08/24/17 20:08 95 Nasal Cannula 3.50 Humidified 08/24/17 20:00 115 08/24/17 20:00 97.2 120 18 99/56 (70) 95 08/24/17 15:12 117 08/24/17 11:00 97.7 125 24 98/57 (71) 94 08/25/17 08/26/17 18:59 06:59 # Voids 3 Exam CONSTITUTIONAL/GENERAL: This is an elderly, frail, disheveled patient, and he has mild apparent dyspnea with talking. TUBES/LINES/DRAINS: Chest tubes 2 on the right, Vizcarra, IV access SKIN: No jaundice, rashes, or lesions. Ecchymoses on upper extremities. No wounds seen anteriorly. Skin temperature appropriate. Not diaphoretic. HEAD: Atraumatic. Normocephalic. EYES: Pupils equal and round and reactive. Extraocular motions intact. No scleral icterus. No injection or drainage. Fundi not examined. ENT: Hearing grossly normal. Nose without bleeding or purulent drainage. Throat without visible erythema, exudates, masses, or lesions. NECK: Trachea midline. Supple, nontender. No palpable thyroid enlargement or nodularity. CARDIOVASCULAR: Regular rate and rhythm without murmurs, gallops, or rubs. No JVD. Peripheral pulses quite diminished. RESPIRATORY/CHEST: Symmetric, breath sounds diminished but equal bilateral. Some scattered rhonchi GASTROINTESTINAL: Abdomen soft, non-tender, nondistended. No hepato-splenomegaly , or palpable masses. No guarding. Bowel sounds present. GENITOURINARY: Without palpable bladder distension. Vizcarra catheter in place. MUSCULOSKELETAL: Extremities without clubbing, cyanosis, or edema. No joint tenderness or effusion noted. No calf tenderness. No mottling or clubbing. LYMPHATICS: No palpable cervical or supraclavicular adenopathy. NEUROLOGICAL: Awake and alert. Motor and sensory grossly within normal limits. Follows commands. Cognitively sharp. Moves all extremities. PSYCHIATRIC: No obvious anxiety/depression. no apparent hallucinations or other psychotic thought process. . Diagnostic Tests Laboratory Laboratory Tests Test 08/22/17 20:50 08/23/17 06:40 08/23/17 22:22 08/24/17 11:30 Blood Gas Puncture Site RT RADIAL Blood Gas Patient Temperature 98.6 Blood Gas HCO3 27 mmol/L (22-26) Blood Gas Base Excess 3.3 mmol/L (-2-2) Blood Gas Oxygen Saturation 94 % (90-100) Arterial Blood pH 7.44 (7.380-7.420) Arterial Blood Partial Pressure CO2 40 mmHg (38-42) Arterial Blood Partial Pressure O2 81 mmHg (61-120) Arterial Blood Oxygen Content 19.4 Vol % (12.0-20.0) Arterial Blood Carboxyhemoglobin 1.1 % (0-4) Arterial Blood Methemoglobin 0.9 % (0-2) Blood Gas Hemoglobin 14.6 G/DL (12.0-16.0) Oxygen Delivery Device NASAL CANNULA Blood Gas Liter Flow 2 L/M White Blood Count 20.1 TH/MM3 (4.0-11.0) Red Blood Count 4.68 MIL/MM3 (4.50-5.90) Hemoglobin 15.3 GM/DL (13.0-17.0) Hematocrit 45.0 % (39.0-51.0) Mean Corpuscular Volume 96.2 FL (80.0-100.0) Mean Corpuscular Hemoglobin 32.6 PG (27.0-34.0) Mean Corpuscular Hemoglobin Concent 33.9 % (32.0-36.0) Red Cell Distribution Width 12.6 % (11.6-17.2) Platelet Count 215 TH/MM3 (150-450) Mean Platelet Volume 11.4 FL (7.0-11.0) Neutrophils (%) (Auto) 86.9 % (16.0-70.0) Lymphocytes (%) (Auto) 6.8 % (9.0-44.0) Monocytes (%) (Auto) 4.9 % (0.0-8.0) Eosinophils (%) (Auto) 0.6 % (0.0-4.0) Basophils (%) (Auto) 0.8 % (0.0-2.0) Neutrophils # (Auto) 17.5 TH/MM3 (1.8-7.7) Lymphocytes # (Auto) 1.4 TH/MM3 (1.0-4.8) Monocytes # (Auto) 1.0 TH/MM3 (0-0.9) Eosinophils # (Auto) 0.1 TH/MM3 (0-0.4) Basophils # (Auto) 0.2 TH/MM3 (0-0.2) CBC Comment AUTO DIFF Differential Total Cells Counted 100 Neutrophils % (Manual) 84 % (16-70) Band Neutrophils % 3 % (0-6) Lymphocytes % 8 % (9-44) Monocytes % 5 % (0-8) Neutrophils # (Manual) 17.5 TH/MM3 (1.8-7.7) Differential Comment FINAL DIFF MANUAL Platelet Estimate NORMAL (NORMAL) Platelet Morphology Comment ENLARGED (NORMAL) Blood Urea Nitrogen 30 MG/DL (7-18) Creatinine 1.23 MG/DL (0.60-1.30) Random Glucose 127 MG/DL (74-106) Total Protein 7.6 GM/DL (6.4-8.2) Albumin 3.2 GM/DL (3.4-5.0) Calcium Level 8.5 MG/DL (8.5-10.1) Phosphorus Level 3.9 MG/DL (2.5-4.9) Magnesium Level 2.3 MG/DL (1.5-2.5) Alkaline Phosphatase 78 U/L (45-117) Aspartate Amino Transf (AST/SGOT) 14 U/L (15-37) Alanine Aminotransferase (ALT/SGPT) 20 U/L (12-78) Total Bilirubin 0.7 MG/DL (0.2-1.0) Sodium Level 138 MEQ/L (136-145) Potassium Level 4.7 MEQ/L (3.5-5.1) Chloride Level 100 MEQ/L (98-107) Carbon Dioxide Level 28.1 MEQ/L (21.0-32.0) Anion Gap 10 MEQ/L (5-15) Estimat Glomerular Filtration Rate 56 ML/MIN (>89) Hemoglobin A1c 5.5 % (4.3-6.0) Free Thyroxine 1.17 NG/DL (0.76-1.46) Thyroid Stimulating Hormone 3rd Gen 5.400 uIU/ML (0.358-3.740) Lactic Acid Level 3.3 mmol/L (0.4-2.0) Total Creatine Kinase 106 U/L (39-308) Troponin I LESS THAN 0.02 NG/ML Test 08/24/17 14:15 08/24/17 16:55 08/25/17 07:20 Lactic Acid Level 2.8 mmol/L (0.4-2.0) Total Creatine Kinase 112 U/L (39-308) Troponin I LESS THAN 0.02 NG/ML White Blood Count 23.2 TH/MM3 (4.0-11.0) Red Blood Count 4.07 MIL/MM3 (4.50-5.90) Hemoglobin 13.1 GM/DL (13.0-17.0) Hematocrit 39.4 % (39.0-51.0) Mean Corpuscular Volume 96.8 FL (80.0-100.0) Mean Corpuscular Hemoglobin 32.3 PG (27.0-34.0) Mean Corpuscular Hemoglobin Concent 33.4 % (32.0-36.0) Red Cell Distribution Width 12.7 % (11.6-17.2) Platelet Count 142 TH/MM3 (150-450) Mean Platelet Volume 10.7 FL (7.0-11.0) Neutrophils (%) (Auto) 94.2 % (16.0-70.0) Lymphocytes (%) (Auto) 1.9 % (9.0-44.0) Monocytes (%) (Auto) 3.8 % (0.0-8.0) Eosinophils (%) (Auto) 0.0 % (0.0-4.0) Basophils (%) (Auto) 0.1 % (0.0-2.0) Neutrophils # (Auto) 21.9 TH/MM3 (1.8-7.7) Lymphocytes # (Auto) 0.5 TH/MM3 (1.0-4.8) Monocytes # (Auto) 0.9 TH/MM3 (0-0.9) Eosinophils # (Auto) 0.0 TH/MM3 (0-0.4) Basophils # (Auto) 0.0 TH/MM3 (0-0.2) CBC Comment DIFF FINAL Differential Comment Phosphorus Level 2.9 MG/DL (2.5-4.9) Magnesium Level 2.3 MG/DL (1.5-2.5) Result Diagram: 08/25/17 0720 08/23/17 0640 Microbiology Microbiology Date/Time Source Procedure Growth Status 08/23/17 22:27 Blood Peripheral Aerobic Blood Culture - Preliminary NO GROWTH IN 1 DAY Resulted 08/23/17 22:27 Blood Peripheral Anaerobic Blood Culture - Preliminary NO GROWTH IN 1 DAY Resulted 08/23/17 22:22 Blood Peripheral Aerobic Blood Culture - Preliminary NO GROWTH IN 1 DAY Resulted 08/23/17 22:22 Blood Peripheral Anaerobic Blood Culture - Preliminary NO GROWTH IN 1 DAY Resulted Imaging Last Impressions Chest X-Ray 08/25/17 0600 Signed Impressions: Service Date/Time: Friday, August 25, 2017 06:05 - CONCLUSION: 1. 2 thoracostomy tubes on the right with small apical pneumothorax which is stable. 2. Worsening consolidation involving the right mid lung and lower lobe. Nayan Han Jr., MD Chest CT 08/22/17 1119 Signed Impressions: Service Date/Time: Tuesday, August 22, 2017 12:49 - CONCLUSION: Large right pneumothorax in spite of chest tube. Findings were called to the floor Shawn Meza MD FACR Chest Tube Insertion 08/15/17 Signed Impressions: Service Date/Time: Tuesday, August 15, 2017 12:00 - CONCLUSION: Uncomplicated chest tube placement as above. J Carlos Bunch MD Chest Tube Change 08/14/17 0000 Signed Impressions: Service Date/Time: August 09:10 - CONCLUSION: Uncomplicated chest tube exchange as above. J Carlos Bunch MD Thoracentesis Ultrasound 08/13/17 Signed Impressions: Service Date/Time: Sunday, August 13, 2017 11:45 - CONCLUSION: Right thoracentesis with with a subsequent right pneumothorax. This was treated with a 10 [place] catheter. The catheter was sutured in place and will need to be followed. J Carlos Diana MD CT Angiography 08/12/171925 Signed Impressions: Service Date/Time: Saturday, August 12, 2017 20:57 - CONCLUSION: 1. No evidence of pulmonary embolism. 2. Right pleural effusion Charly Medrano MD Procedures Chest tube procedures 3 . Patient/Family Conference Present at Family Conference: Patient's daughter by telephone . Family Conference Time (mins): 36 Family Conference Location: Telephone Issues Discussed: * Palliative care role, purpose, approach * Hospice care role, purpose, approach * Additional medical, psychosocial, and spiritual history * Patients general health, functional status, and cognitive changes in the months leading up to the current hospitalization * Patient/family understanding of the current medical problems * Patient/family understanding of prognosis * Patients goals of care as best understood from advance directives and/or conversations and/or values * Current medical treatment options and benefits/burdens of those options * Likely scenarios comparing ongoing aggressive care with a transition to comfort measures only * Questions answered to the best of my ability * Palliative care contact information provided The patient is very clear that he would not want any resuscitation and would not want to be on life support. He does recognize that he has declined significantly over the past couple weeks in the hospital, that it is unlikely that he will be able to return home to live alone, and he is actually considering whether to transition to hospice services to focus on his symptoms and comfort. . Assessment and Plan Disease Oriented Problem List: (1) pneumonia (2) pneumothorax, with persistent air leak (3) moderately severe COPD, bullous emphysema (4) peripheral vascular disease (5) skin cancers, excisions (6) skin cancers, excisions degenerative joint disease (7) anxiety (8) BPH Symptom Scale: (1) dyspnea 0-10 Scale: Unable to quantify (2) pain 0-10 Scale: 5 (intermittent, stabbing) (3) anxiety 0-10 Scale: 0 Pertinent Non-Medical Issues Psychosocial: , one daughter, own motels in the past. Spiritual: The patient is Oriental Orthodox, and spirituality is very important for him. A websphere portal architect has visited him here in the hospital. Legal: The patient has capacity for decision-making. He reports that his daughter is the designated health care surrogate. Ethical issues impacting care: None . Important Contacts Daughter: Melanie Love [phone] . Prognosis The patient's overall prognosis is rather poor. He has underlying severe bullous emphysema, has been increasingly debilitated for the past couple years with marked weight loss and weakness requiring the use of a walker at home, and now he has a prolonged hospitalization, currently with pneumonia. He would be appropriate for hospice services if he feels that his goals will be completely comfort oriented. . Code Status: No Code Plan * DO NOT RESUSCITATE, per request of patient 08/25/17, and confirmed by patient' s daughter * DECISION-MAKING: The patient has capacity for decision-making. He reports that his daughter is the designated health care surrogate. * GOALS: The patient is very clear that he would not want any resuscitation and would not want to be on life support. He does recognize that he has declined significantly over the past couple weeks in the hospital, that it is unlikely that he will be able to return home to live alone, and he is actually considering whether to transition to hospice services to focus on his symptoms and comfort. * DNR order entered. * SYMPTOMS: PAIN: The patient has been receiving parenteral morphine once or twice per day, and also oxycodone once or twice per day, and he says the pain medicine is in fact helping his pain. DYSPNEA: The patient has ongoing mild dyspnea, but says it is tolerable and "not bad." I have no further medication recommendations at this time. * Palliative Care will continue to follow the patient during this hospitalization. . Time Spent Total Floor Time (mins): 79 Face to Face Time (mins): 44 >50% Counseling/Coord of Care: Yes Thank you for the opportunity to participate in the care of Mr. Osullivan. Attestation To help prompt me to consider important information that might be impacting today's encounter and assessment, information from prior notes written by myself or my colleagues may have been "brought forward" into today's note. My signature on this note, however, is an attestation that I personally performed the exam, history, and/or decision-making noted today, and, unless otherwise indicated, the interactions with patient, family, and staff as well as the review of records all occurred today. I also attest that the listed assessment and stated plan reflect my best clinical judgment today based on the combination of historical information, prior notes, and today's exam/ interactions. When time spent is documented, it refers only to time spent today by the signer, or if indicated, combined time spent today by collaborating physician/nurse practitioner. Nadya Rodrigues MD Aug 25, 2017 10:43
[2017-08-25] MEDS: BUDESONIDE-FORMOTEROL 160/4.5 MCG INHALER INH SCH ×2 (10:44→21:17)
[2017-08-25] MEDS: MEGESTROL ACETATE 40 MG TAB PO SCH ×2 (10:52→21:16)
--- NOTE | 2017-08-25 10:55 | HHI.PR ---
Subjective Remarks 3-[address] OF CHEST [facility] STATED POOR CANDIDATE FOR SURGERY AWAIT CHEST TUBE PLACEMENT BY [facility] RADIOLOGY THEY STATE THEY CANNOT DO A BIGGER CHEST TUBE- RECOMMENDED SURGERY/ CCM DW RN AND PT AND CM 3-10 HAS RIGHT SIDE PNEUMOTHORAX STILL EVEN WITH [address] DW RN AND PT AND FAMILY AND CASE MANAGEMENT POOR ORAL INTAKE START MEGACE AND ENSURE SEEN BY PULMONARY 3-11 IMPROVEMENT OF PNEUMOTHORAX ON RIGHT HAVING CHEST PAIN ON THE RIGHT TREND TROPONINS AND EKGS SOME TACHYCARDIA DUE TO ALBUTEROL HAS PNEUMONIA NOW THAT LUNG IS INFLATED DW RN AND PT AND CM AND PULMONARY ON ZITHROMAX AND ZOSYN 3-12 SEEN BY PALLIATIVE CARE TODAY MADE A FULL DNR PATIENT TO EXPLORE HOSPICE VS [facility] DW RN AND PT AND CM WILL ASK IR TO SEE IF THEY CAN PLEURIDES THE RIGHT LUNG DW DR SHAWN SCHMID Objective Vitals Vital Signs Date Time Temp Pulse Resp B/P (MAP) Pulse Ox O2 Delivery O2 Flow Rate FiO2 08/25/17 08:25 93 Nasal Cannula 2.00 08/25/17 08:19 97.6 112 20 151/72 (98) 94 08/25/17 04:00 106 08/25/17 04:00 98.3 119 20 111/63 (79) 94 08/25/17 00:00 118 08/25/17 00:00 97.4 101 18 97/57 (70) 94 08/24/17 21:58 94 Nasal Cannula 2.00 08/24/17 20:08 95 Nasal Cannula 3.50 Humidified 08/24/17 20:00 115 08/24/17 20:00 97.2 120 18 99/56 (70) 95 08/24/17 15:12 117 08/24/17 11:00 97.7 125 24 98/57 (71) 94 I/O 08/24/17 08/24/17 08/24/17 08/25/17 08/25/17 08/25/17 06:59 14:59 22:59 06:59 14:59 22:59 Intake Total 250 ml 200 ml 350 ml Output Total 205 ml 405 ml 505 ml 230 ml Balance -205 ml -155 ml -305 ml 120 ml IV Total 250 ml 200 ml 350 ml Output Urine Total 200 ml Chest Tube Drainage Total 205 ml 205 ml 505 ml 230 ml # Voids 3 # Bowel Movements 0 Result Diagram: 08/25/17 0720 08/23/17 0640 Other Results Laboratory Tests Test 08/22/17 20:50 08/23/17 06:40 08/23/17 22:22 08/24/17 11:30 Blood Gas Puncture Site RT RADIAL Blood Gas Patient Temperature 98.6 Blood Gas HCO3 27 mmol/L Blood Gas Base Excess 3.3 mmol/L Blood Gas Oxygen Saturation 94 % Arterial Blood pH 7.44 Arterial Blood Partial Pressure CO2 40 mmHg Arterial Blood Partial Pressure O2 81 mmHg Arterial Blood Oxygen Content 19.4 Vol % Arterial Blood Carboxyhemoglobin 1.1 % Arterial Blood Methemoglobin 0.9 % Blood Gas Hemoglobin 14.6 G/DL Oxygen Delivery Device NASAL CANNULA Blood Gas Liter Flow 2 L/M White Blood Count 20.1 TH/MM3 Red Blood Count 4.68 MIL/MM3 Hemoglobin 15.3 GM/DL Hematocrit 45.0 % Mean Corpuscular Volume 96.2 FL Mean Corpuscular Hemoglobin 32.6 PG Mean Corpuscular Hemoglobin Concent 33.9 % Red Cell Distribution Width 12.6 % Platelet Count 215 TH/MM3 Mean Platelet Volume 11.4 FL Neutrophils (%) (Auto) 86.9 % Lymphocytes (%) (Auto) 6.8 % Monocytes (%) (Auto) 4.9 % Eosinophils (%) (Auto) 0.6 % Basophils (%) (Auto) 0.8 % Neutrophils # (Auto) 17.5 TH/MM3 Lymphocytes # (Auto) 1.4 TH/MM3 Monocytes # (Auto) 1.0 TH/MM3 Eosinophils # (Auto) 0.1 TH/MM3 Basophils # (Auto) 0.2 TH/MM3 CBC Comment AUTO DIFF Differential Total Cells Counted 100 Neutrophils % (Manual) 84 % Band Neutrophils % 3 % Lymphocytes % 8 % Monocytes % 5 % Neutrophils # (Manual) 17.5 TH/MM3 Differential Comment FINAL DIFF MANUAL Platelet Estimate NORMAL Platelet Morphology Comment ENLARGED Blood Urea Nitrogen 30 MG/DL Creatinine 1.23 MG/DL Random Glucose 127 MG/DL Total Protein 7.6 GM/DL Albumin 3.2 GM/DL Calcium Level 8.5 MG/DL Phosphorus Level 3.9 MG/DL Magnesium Level 2.3 MG/DL Alkaline Phosphatase 78 U/L Aspartate Amino Transf (AST/SGOT) 14 U/L Alanine Aminotransferase (ALT/SGPT) 20 U/L Total Bilirubin 0.7 MG/DL Sodium Level 138 MEQ/L Potassium Level 4.7 MEQ/L Chloride Level 100 MEQ/L Carbon Dioxide Level 28.1 MEQ/L Anion Gap 10 MEQ/L Estimat Glomerular Filtration Rate 56 ML/MIN Hemoglobin A1c 5.5 % Free Thyroxine 1.17 NG/DL Thyroid Stimulating Hormone 3rd Gen 5.400 uIU/ML Lactic Acid Level 3.3 mmol/L Total Creatine Kinase 106 U/L Troponin I LESS THAN 0.02 NG/ML Test 08/24/17 14:15 08/24/17 16:55 08/25/17 07:20 Lactic Acid Level 2.8 mmol/L Total Creatine Kinase 112 U/L Troponin I LESS THAN 0.02 NG/ML White Blood Count 23.2 TH/MM3 Red Blood Count 4.07 MIL/MM3 Hemoglobin 13.1 GM/DL Hematocrit 39.4 % Mean Corpuscular Volume 96.8 FL Mean Corpuscular Hemoglobin 32.3 PG Mean Corpuscular Hemoglobin Concent 33.4 % Red Cell Distribution Width 12.7 % Platelet Count 142 TH/MM3 Mean Platelet Volume 10.7 FL Neutrophils (%) (Auto) 94.2 % Lymphocytes (%) (Auto) 1.9 % Monocytes (%) (Auto) 3.8 % Eosinophils (%) (Auto) 0.0 % Basophils (%) (Auto) 0.1 % Neutrophils # (Auto) 21.9 TH/MM3 Lymphocytes # (Auto) 0.5 TH/MM3 Monocytes # (Auto) 0.9 TH/MM3 Eosinophils # (Auto) 0.0 TH/MM3 Basophils # (Auto) 0.0 TH/MM3 CBC Comment DIFF FINAL Differential Comment Phosphorus Level 2.9 MG/DL Magnesium Level 2.3 MG/DL Imaging Last Impressions Chest X-Ray 08/25/17 0600 Signed Impressions: Service Date/Time: Friday, August 25, 2017 06:05 - CONCLUSION: 1. 2 thoracostomy tubes on the right with small apical pneumothorax which is stable. 2. Worsening consolidation involving the right mid lung and lower lobe. Nayan Han Jr., MD Chest CT 08/22/17 1119 Signed Impressions: Service Date/Time: Tuesday, August 22, 2017 12:49 - CONCLUSION: Large right pneumothorax in spite of chest tube. Findings were called to the floor Shawn Meza MD FACR Chest Tube Insertion 08/15/17 0000 Signed Impressions: Service Date/Time: Tuesday, August 15, 2017 12:00 - CONCLUSION: Uncomplicated chest tube placement as above. J Carlos Bunch MD Chest Tube Change 08/14/17 0000 Signed Impressions: Service Date/Time: August 09:10 - CONCLUSION: Uncomplicated chest tube exchange as above. J Carlos Bunch MD Thoracentesis Ultrasound 08/13/17 0000 Signed Impressions: Service Date/Time: Sunday, August 13, 2017 11:45 - CONCLUSION: Right thoracentesis with with a subsequent right pneumothorax. This was treated with a 10 Slovenian catheter. The catheter was sutured in place and will need to be followed. J Carlos Diana MD CT Angiography [id number] Signed Impressions: Service Date/Time: Saturday, August 12, 2017 20:57 - CONCLUSION: 1. No evidence of pulmonary embolism. 2. Right pleural effusion Charly Medrano MD Objective Remarks GENERAL: Patient is very cachectic, resting comfortably in bed, not in respiratory distress. SKIN: Skin is pale, no rash observed. HEENT: Head is normocephalic without any lesions or masses noted. Facial features are symmetric. Eyes: Extraocular muscles are intact. Conjunctivae were clear. TONGUE IS MIDLINE NECK: Supple without any masses. Trachea midline, no deviation. No JVD. CARDIAC: Regular rhythm TACHY rate. S1/S2 are heard. No murmurs gallops or rubs. LUNGS: COARSE BREATH SOUNDS ON RIGHT NOW. Chest tube present on the right lung field draining serosanguineous fluid. COARSE BS ON THE LEFT ABDOMEN: Soft, nontender. Nondistended. Bowel sounds heard in all 4 quadrants. No organomegaly or masses. Negative rebound or guarding. EXTREMITIES: No edema, pulses are equal bilaterally. No cyanosis or clubbing. NEUROLOGY: Cranial nerves II through XII grossly intact. Moving all extremities , speech is clear. PSYCH: Mood and affect appropriate. Procedures Chest tubeS placement X2 Medications and IVs Current Medications Sodium Chloride (NS Flush) 2 ml UNSCH PRN IVF FLUSH AFTER USING IV ACCESS; Start 08/12/17 at 19:30; Stop 08/12/17 at 22:37; Status DC Acetaminophen (Tylenol) 650 mg ONCE ONCE PO Last administered on 08/12/17at 22: 07; Start 08/12/17 at 21:00; Stop 08/12/17 at 21:01; Status DC Ceftriaxone Sodium 1000 mg/ Sodium Chloride 100 ml @ 200 mls/hr ONCE ONCE IV Last administered on 08/12/17at 21:00; Start 08/12/17 at 21:00; Stop 08/12/17 at 21:29; Status DC Azithromycin 500 mg/Sodium Chloride 250 ml @ 250 mls/hr ONCE ONCE IV Last administered on 08/12/17at 21:00; Start 08/12/17 at 21:00; Stop 08/12/17 at 21:59 ; Status DC Iohexol (Omnipaque 350 Inj) 75 ml STK-MED ONCE IVCONTRAST Last administered on 08/12/17at 21:12; Start 08/12/17 at 21:12; Stop 08/12/17 at 21:13; Status DC Sodium Chloride (NS Flush) 2 ml UNSCH PRN IV FLUSH FLUSH AFTER USING IV ACCESS ; Start 08/12/17 at 22:30; Stop 08/24/17 at 11:32; Status DC Sodium Chloride (NS Flush) 2 ml BID IV FLUSH Last administered on 08/24/17at 09: 00; Start 08/13/17 at 09:00; Stop 08/24/17 at 11:32; Status DC Heparin Sodium (Porcine) (Heparin Inj) 5,000 units Q8HR SQ ; Start 08/12/17 at 06:00; Status Cancel Naloxone HCl (Narcan Inj) 0.4 mg UNSCH PRN IV PUSH SEE LABEL COMMENTS; Start at 22:30; Stop 08/23/17 at 11:25; Status DC Albuterol/ Ipratropium (Duoneb Neb) 1 ampule Q4HR NEB NEB Last administered on 08/13/17at 07:58; Start 08/13/17 at 00:00; Stop 08/13/17 at 08:14; Status DC Albuterol/ Ipratropium (Duoneb Neb) 1 ampule Q2HR NEB PRN NEB sob, wheeze; Start 08/12/17 at 22:30 Heparin Sodium (Porcine) (Heparin Inj) 5,000 units Q8HR SQ Last administered on 08/13/17at 06:30; Start 08/13/17 at 06:00; Stop 08/13/17 at 17:29; Status DC Albuterol/ Ipratropium (Duoneb Neb) 1 ampule Q4HR WHILE AWAKE NEB NEB Last administered on 08/16/17at 12:20; Start 08/13/17 at 12:00; Stop 08/16/17 at 14:20; Status DC Aspirin (Ecotrin Ec) 81 mg DAILY PO Last administered on 08/24/17at 08:22; Start 08/14/17 at 09:00; Stop 08/24/17 at 11:30; Status DC Lorazepam (Ativan) 1 mg TID PO Last administered on 08/16/17at 09:12; Start 08/13 at 13:00; Stop 08/16/17 at 11:22; Status DC Levofloxacin (Levaquin) 750 mg Q2D PO ; Start 08/14/17 at 11:00; Stop 08/14/17 at 11:00; Status DC Enoxaparin Sodium (Lovenox Inj) 40 mg Q24H SQ ; Start 08/14/17 at 09:00; Stop 08/14/17 at 09:00; Status DC Enoxaparin Sodium (Lovenox Inj) 30 mg DAILY SQ ; Start 08/14/17 at 09:00; Stop at 09:00; Status DC Levofloxacin (Levaquin) 500 mg Q24H PO Last administered on 08/14/17at 15:11; Start 08/13/17 at 14:00; Stop 08/15/17 at 16:00; Status DC Enoxaparin Sodium (Lovenox Inj) 30 mg DAILY SQ Last administered on 08/24/17at 08:23; Start 08/14/17 at 09:00 Fentanyl Citrate (fentaNYL INJ) 50 mcg STK-MED ONCE IV Last administered on 08/14at 10:00; Start 08/14/17 at 10:00; Stop 08/14/17 at 10:39; Status DC Midazolam HCl (Versed Inj) STK-MED ONCE IV ; Start 08/14/17 at 10:00; Stop at 10:39; Status DC Midazolam HCl (Versed Inj) 5 mg STK-MED ONCE .ROUTE Last administered on at 12:18; Start 08/15/17 at 12:18; Stop 08/15/17 at 12:19; Status DC Fentanyl Citrate (fentaNYL INJ) 250 mcg STK-MED ONCE .ROUTE Last administered on 08/15/17 12:19; Start 08/15/17 at 12:19; Stop 08/15/17 at 12:20; Status DC Levofloxacin (Levaquin) 500 mg Q24H PO Last administered on 08/23/17 16:23; Start 08/15/17 at 16:00; Stop 08/23/17 at 22:01; Status DC Lorazepam (Ativan) 1 mg ONCE ONCE PO Last administered on 08/16/17 02:48; Start 08/16/17 at 02:45; Stop 08/16/17 at 02:46; Status DC Lorazepam (Ativan) 1 mg DAILY@0800,1800,2300 PO Last administered on 08/24/17at 21:58; Start 08/16/17 at 18:00 Albuterol/ Ipratropium (Duoneb Neb) 1 ampule Q4HR WHILE AWAKE NEB NEB Last administered on 08/20/17 12:47; Start 08/16/17 at 16:00; Stop 08/20/17 at 15:59; Status DC Methocarbamol (Robaxin) 500 mg TID PRN PO muscle spasm Last administered on 09:14; Start 08/16/17 at 14:30 Cetirizine HCl (ZyrTEC) 10 mg DAILY PO Last administered on 08/24/17at 08:22; Start 08/16/17 at 14:30 Senna/Docusate Sodium (Susu-Colace) 1 tab BID PO Last administered on at 09:14; Start 08/18/17 at 21:00; Stop 08/23/17 at 11:26; Status DC Polyethylene Glycol (Miralax) 17 gm ONCE ONCE PO Last administered on 16:51; Start 08/18/17 at 16:15; Stop 08/18/17 at 16:16; Status DC Guaifenesin (Mucinex Er) 600 mg BID PO Last administered on 08/24/17at 21:42; Start 08/22/17 at 12:45 Iohexol (Omnipaque 350 Inj) 75 ml STK-MED ONCE IVCONTRAST Last administered on 08/22/17at 13:03; Start 08/22/17 at 13:03; Stop 08/22/17 at 13:04; Status DC Midazolam HCl (Versed Inj) 5 mg ONCE ONCE IV PUSH ; Start 08/22/17 at 13:45; Stop 08/22/17 at 14:07; Status DC Midazolam HCl (Versed Inj) 5 mg STK-MED ONCE .ROUTE ; Start 08/22/17 at 13:34; Stop 08/22/17 at 13:35; Status DC Dextrose (D50w (Vial) Inj) 50 ml UNSCH PRN IV PUSH HYPOGLYCEMIA-SEE COMMENTS; Start 08/22/17 at 20:45; Stop 08/22/17 at 20:45; Status DC Glucagon (Glucagon Inj) 1 mg UNSCH PRN OTHER HYPOGLYCEMIA-SEE COMMENTS; Start 08/22/17 at 20:45; Stop 08/22/17 at 20:45; Status DC Acetaminophen (Tylenol) 650 mg ONCE ONCE PO Last administered on 08/22/17at 22: 45; Start 08/22/17 at 22:45; Stop 08/22/17 at 22:46; Status DC Acetaminophen/ Hydrocodone Bitart (Sutton 5-325 Mg) 1 tab ONCE ONCE PO Last administered on 08/23/17at 02:51; Start 08/23/17 at 02:45; Stop 08/23/17 at 02:46 ; Status DC Acetaminophen/ Hydrocodone Bitart (Sutton 7.5-325 Mg) 1 tab ONCE ONCE PO Last administered on 08/23/17at 07:13; Start 08/23/17 at 07:00; Stop 08/23/17 at 07:01 ; Status DC Naloxone HCl (Narcan Inj) 0.4 mg UNSCH PRN IV PUSH SEE LABEL COMMENTS; Start at 11:30; Stop 08/24/17 at 11:34; Status DC Senna/Docusate Sodium (Susu-Colace) 1 tab BID PO Last administered on at 21:42; Start 08/23/17 at 21:00 Magnesium Hydroxide (Milk Of Magnesia Liq) 30 ml Q12H PRN PO Mild constipation ; Start 08/23/17 at 11:30 Sennosides (Senokot) 17.2 mg Q12H PO Last administered on 08/25/17at 00:12; Start 08/23/17 at 12:00 Bisacodyl (Dulcolax Supp) 10 mg DAILY PRN RECTAL SEVERE CONSITIPATION; Start at 11:30 Lactulose (Lactulose Liq) 30 ml DAILY PRN PO SEVERE CONSITIPATION; Start at 11:30 Sodium Chloride (NS Flush) 2 ml UNSCH PRN IV FLUSH FLUSH AFTER USING IV ACCESS ; Start 08/23/17 at 11:30 Sodium Chloride (NS Flush) 2 ml BID IV FLUSH ; Start 08/23/17 at 21:00 Acetaminophen (Tylenol) 650 mg Q4H PRN PO TEMP > 100.4; Start 08/23/17 at 11:30 Ondansetron HCl (Zofran Inj) 4 mg Q6H PRN IVP NAUSEA OR VOMITING; Start at 11:30 Metoclopramide HCl (Reglan Inj) 5 mg Q6H PRN IV PUSH NAUSEA OR VOMITING; Start 08/23/17 at 11:30 Acetaminophen (Tylenol) 650 mg Q6H PRN PO PAIN SCALE 1 TO 2; Start 08/23/17 at 11:30 Oxycodone/ Acetaminophen (Percocet 5-325 Mg) 1 tab Q6H PRN PO PAIN SCALE 3 TO 5; Start 08/23/17 at 11:30 Oxycodone/ Acetaminophen (Percocet 10-325 Mg) 1 tab Q6H PRN PO PAIN SCALE 6 TO 10 Last administered on 08/25/17at 05:44; Start 08/23/17 at 11:30 Morphine Sulfate (Morphine Inj) 2 mg Q3H PRN IV PUSH Pain 3-5; ; Start at 11:30 Morphine Sulfate (Morphine Inj) 4 mg Q3H PRN IV PUSH Pain 6-10;; Start at 11:30 Morphine Sulfate (Morphine Inj) 4 mg Q1H PRN IV PUSH PAIN SCALE 7-10 ( INTRACTABLE); Start 08/23/17 at 11:30 Morphine Sulfate (Morphine Inj) 4 mg Q3H PRN IV PUSH BREAKTHROUGH PAIN Last administered on 08/25/17at 06:32; Start 08/23/17 at 11:30 Naloxone HCl (Narcan Inj) 0.4 mg UNSCH PRN IV PUSH SEE LABEL COMMENTS; Start at 11:30 Albuterol/ Ipratropium (Duoneb Neb) 1 ampule Q4HR NEB NEB Last administered on 08/25/17at 08:18; Start 08/23/17 at 12:00 Methylprednisolone Sodium Succinate (SoluMEDROL INJ) 40 mg Q12HR IV PUSH Last administered on 08/24/17at 21:41; Start 08/23/17 at 12:00 Budesonide/ Formoterol Fumarate (Symbicort 160-4.5 Mcg Inh) 2 puff Q12HR INH Last administered on 08/24/17at 08:24; Start 08/23/17 at 12:00 Megestrol Acetate (Megace) 400 mg Q12HR PO Last administered on 08/24/17at 21:42 ; Start 08/23/17 at 21:00 Piperacillin Sod/ Tazobactam Sod 100 ml @ 200 mls/hr Q6H IV Last administered on 08/25/17at 05:23; Start 08/23/17 at 22:00 Azithromycin 500 mg/Sodium Chloride 250 ml @ 250 mls/hr Q24H IV Last administered on 08/25/17at 00:12; Start 08/23/17 at 23:00 Sodium Chloride 250 ml @ 250 mls/hr BOLUS ONCE IV Last administered on at 10:45; Start 08/24/17 at 10:45; Stop 08/24/17 at 11:44; Status DC Aspirin (Aspirin Chew) 243 mg NOW ONCE PO Last administered on 08/24/17at 12:19 ; Start 08/24/17 at 11:45; Stop 08/24/17 at 11:46; Status DC Aspirin (Aspirin) 325 mg DAILY PO ; Start 08/25/17 at 09:00 Nitroglycerin (Nitrostat Sl) 0.4 mg Q5M PRN SL X 3 doses for chest pain; Start 08/24/17 at 11:15 Sodium Chloride 1,000 ml @ 100 mls/hr Q10H IV Last administered on 08/25/17at 05:23; Start 08/24/17 at 12:04 A/P Problem List: (1) Pneumothorax ICD Code: J93.9 - Pneumothorax, unspecified Plan: The patient presented with moderate sized right pleural effusion/ pneumothorax. The patient underwent ultrasound-guided thoracentesis with 1100 cc of fluid removed. Pneumothorax was treated with a chest tube placement. Cardiology and pulmonology managing the chest tube. Fluid appeared to be transudative. Negative for malignant cells. 2D echocardiogram showed an EF of 50-55% with left ventricular function is low normal. Chest x-ray on 08/18 still shows small right pneumothorax. CT surgery consulted by pulmonology. 08/21 appreciate cardiothoracic surgery consultation recommendations. As per CT surgery the patient has a persistent air leak with bullous emphysema. Repeat chest x-ray obtained on 08/20 showed a slightly larger right pneumothorax, CT of the chest on same date shows a large hydropneumothorax with more than fluid despite an appropriately positioned small-caliber chest tube. Will discuss with cardiothoracic surgery. NOT A SURGICAL CANDIDATE PER [facility]- CONSULT CCM FOR CHEST TUBE HAD 2ND CHEST TUBE PLACED ON 08-22 BY CCM STILL HAS MODERATE TO LARGE PNEUMOTHORAX ON 08-23 MUCH LESS PNEUMOTHORAX ON RIGHT NOW HAS PNEUMONIA AT RIGHT BASE ON ZITHROMAX AND ZOSYN DW PULM 08-25 NO FEVERS LESS SOB RIGHT SIDE CHEST TUBES STILL IN PLACE (2) COPD (chronic obstructive pulmonary disease) ICD Code: J44.9 - COPD (chronic obstructive pulmonary disease) Status: Chronic Plan: Continue O2 supplementation maintain O2 sats greater than 92%. Duo nebs every 4 hours and every 2 hours as needed. Levaquin 500 mg by mouth daily. Dr. Schmid his lasting machine operator has been consulted. Appreciate recommendations. (3) Pleural effusion ICD Code: J90 - Pleural effusion, not elsewhere classified Status: Resolved Plan: Status post ultrasound-guided thoracentesis and chest tube placement. (4) Hyperglycemia ICD Code: R73.9 - Hyperglycemia, unspecified Status: Resolved Plan: Likely related to stress. Hemoglobin A1c obtained and 5.4%. Continue to monitor BMP (5) pneumothorax, with persistent air leak Plan: HAS CHEST TUBES IN PLACE ON THE RIGHT (6) pneumonia Plan: ON ZITHROMAX AND ZOSYN MUCINEX AND DUONEBS AND IS AND STEROIDS Assessment and Plan DVT prophylaxis: SCDs, Lovenox subcutaneously. Discharge Planning Patient with worsening hydropneumothorax. Follow-up CT surgery recommendations. Patient still has a chest tube. CONSULT CCM FOR CHEST TUBE PCM MODERATE TO SEVERE --WILL START MEGACE AND ENSURE DW RN AND PT AND FAMILY ATYPICAL CHEST PAIN ON RIGHT SIDE TREND TROPONINS- NEGATIVE NEB TREATMENTS ANTIBIOTICS PAIN CONTROL DW RN AND PT Discharge Planning NEEDS GOOD CHEST TUBE AND PNEUMOTHORAX RESOLUTION Shawn Azar DO Aug 25, 2017 10:55
[2017-08-25] MEDS: UMECLIDINIUM 62.5 MCG/VILANTEROL 25 MCG INHALER INH SCH (10:56)
[2017-08-25 13:13] LABS: ALBUMIN 2.4 GM/DL (3.4-5.0); ALT (GPT) 16 U/L (12-78); AST (GOT) 16 U/L (15-37); BICARBONATE 26.6 MEQ/L (21.0-32.0); BLOOD UREA NITROGEN 29 MG/DL (7-18); CALCIUM 8.5 MG/DL (8.5-10.1); CHLORIDE 107 MEQ/L (98-107); CREATININE 1.18 MG/DL (0.60-1.30); GLOMERULAR FILTRATION RATE 58 ML/MIN (>89); GLUCOSE,RANDOM 117 MG/DL (74-106); SODIUM (NA) 145 MEQ/L (136-145)
[2017-08-25 13:21] LABS: ALKALINE PHOSPHATASE 59 U/L (45-117); TOTAL BILIRUBIN ADULT 0.4 MG/DL (0.2-1.0); TOTAL PROTEIN 5.9 GM/DL (6.4-8.2); TROPONIN I LESS THAN 0.02 NG/ML (0.02-0.05)
--- NOTE | 2017-08-25 18:33 | EKG ---
Date Performed: 08/24/2017 Time Performed: 22:47:08 PTAGE: 86 years EKG: SINUS TACHYCARDIA LOW QRS VOLTAGE ABNORMAL ECG PREVIOUS TRACING : 08/24/2017 17.35 Since the prior tracing, there has been no significant ferrer DOCTOR: Hawa Pena Interpretating Date/Time 08/25/2017 18:31:32
--- NOTE | 2017-08-25 18:33 | EKG ---
Date Performed: 08/24/2017 Time Performed: 17:35:12 PTAGE: 86 years EKG: SINUS TACHYCARDIA LOW QRS VOLTAGE MODERATE T-WAVE ABNORMALITY, CONSIDER LATERAL ISCHEMIA AB NORMAL ECG PREVIOUS TRACING : 08/24/2017 10.22 Since the prior tracing, there has been no significant ferrer DOCTOR: Hawa Pena Interpretating Date/Time 08/25/2017 18:31:13
[2017-08-26] VITALS (21 sets, daily range): BP systolic 91–136; BP diastolic 54–94; PULSE 106–145; RESP 16–23; TEMP 97.2–98; O2SAT 90–99
[2017-08-26] MEDS: AZITHROMYCIN INJ 500 MG in SODIUM CHLOR 0.9% 250 ML INJ 250 ML IV SCH ×2 (01:18→22:22)
[2017-08-26] MEDS: LORazepam 1 MG TAB PO SCH ×2 (01:18→08:00)
[2017-08-26] MEDS: SENNOSIDES 8.6 MG TAB PO SCH ×2 (01:19→13:03)
[2017-08-26] MEDS: RESP: ALBUTEROL 2.5 MG/IPRATROPIUM 0.5 MG NEB (SCH) NEB ×5 (02:42→23:41)
[2017-08-26] MEDS: PIPERACIL-TAZO 4.5 GM PREMIX 100 ML IV SCH ×4 (04:48→21:25)
[2017-08-26] MEDS: SODIUM CHLOR 0.9% 1000 ML INJ 1,000 ML IV SCH (04:49)
[2017-08-26] MEDS: oxyCODONE/ACETAMINOPHEN 10 MG/325 MG TAB PO PRN (04:49)
[2017-08-26] MEDS ORDERED: methylPREDNISolone SOD SUCC 40 MG/1 ML VIAL IV PUSH ONE (05:30)
[2017-08-26] MEDS ORDERED: FUROSEMIDE 40 MG/4 ML VIAL IV PUSH ONE (05:30)
[2017-08-26] MEDS: MORPHINE SULFATE 2 MG/ML INJ IV PUSH PRN ×3 (05:50→16:47)
--- NOTE | 2017-08-26 05:55 | RADRPT ---
EXAM DATE/TIME: 08/26/2017 05:31 [facility] COMPARISON: CHEST SINGLE AP, August 25, 2017, 6:05. INDICATIONS : Shortness of breath. MEDICAL HISTORY : Chronic obstructive pulmonary disease. Cardiovascular disease. Carcinoma, lung. SURGICAL HISTORY : chest tube x 2. ENCOUNTER: Subsequent ACUITY: 4 - 6 days PAIN SCORE: Non-responsive. LOCATION: Bilateral chest FINDINGS: 2 thoracostomy tubes on the right. A small apical pneumothorax persists. This is unchanged. Consolida tion involving the right midlung and lower lobe is unchanged. Left lung is clear. Heart is normal in size. Subcutaneous air overlying the right chest. CONCLUSION: 1. Residual small apical pneumothorax despite 2 right thoracostomy tubes. 2. Stable consolidation involving the right midlung and lower lobe. Nayan Han Jr., MD on August 26, 2017 at 5:52 Board Certified Radiologist. This report was verified electronically.
--- NOTE | 2017-08-26 06:28 | HHI.PR ---
Addendum to Inpatient Note Addendum Reason: Additional Documentation Additional Information Residents responded to [facility]. Dr. Wilson (ICU) was already at bedside and patient will be transferring to the ICU. Further management deferred to trimmer sawyer. nadjaw Dr. Shawn Chao,Mirta Botello MD, R3 Aug 26, 2017 06:28
[2017-08-26] MEDS ORDERED: DILTIAZEM HCL 50 MG/10 ML VIAL IV ONE (06:45)
[2017-08-26] MEDS ORDERED: methylPREDNISolone SOD SUCC 125 MG/2 ML VIAL ONE (06:45)
[2017-08-26] MEDS ORDERED: methylPREDNISolone SOD SUCC 125 MG/2 ML VIAL IV ONE (07:00)
[2017-08-26] MEDS ORDERED: MORPHINE SULFATE 4 MG/ML INJ IV ONE (07:00)
[2017-08-26 07:36] LABS: AUTOMATED NEUTROPHIL # 22.3 TH/MM3 (1.8-7.7); BASOPHIL # 0.1 TH/MM3 (0-0.2); BASOPHIL % 0.4 % (0.0-2.0); EOSINOPHIL # 0.1 TH/MM3 (0-0.4); EOSINOPHIL % 0.3 % (0.0-4.0); HEMATOCRIT 41.8 % (39.0-51.0); HEMOGLOBIN 13.7 GM/DL (13.0-17.0); LYMPH % 1.1 % (9.0-44.0); LYMPHOCYTE # 0.3 TH/MM3 (1.0-4.8); MEAN CELL VOLUME 97.4 FL (80.0-100.0); MEAN CORPUSCULAR HEMOGLOBIN 31.9 PG (27.0-34.0); MEAN CORPUSCULAR HGB CONC 32.7 % (32.0-36.0); MEAN PLATELET VOLUME 11.5 FL (7.0-11.0); MONO % 3.7 % (0.0-8.0); MONOCYTE # 0.9 TH/MM3 (0-0.9); NEUT % 94.5 % (16.0-70.0); PLATELET COUNT 177 TH/MM3 (150-450); RED BLOOD COUNT 4.28 MIL/MM3 (4.50-5.90); RED CELL DISTRIBUTION WIDTH 12.9 % (11.6-17.2); WHITE BLOOD COUNT 23.6 TH/MM3 (4.0-11.0)
[2017-08-26] MEDS ORDERED: LIDOCAINE 1%/EPINEPHrine 1:100,000 SOLN 30 ML VIAL ONE (07:39)
[2017-08-26] MEDS ORDERED: MIDAZOLAM HCL 5 MG/ML VIAL (1 ML) ONE (07:42)
[2017-08-26 07:52] LABS: ALBUMIN 2.4 GM/DL (3.4-5.0); AST (GOT) 20 U/L (15-37); BICARBONATE 30.1 MEQ/L (21.0-32.0); BLOOD UREA NITROGEN 26 MG/DL (7-18); CALCIUM 7.8 MG/DL (8.5-10.1); CHLORIDE 108 MEQ/L (98-107); CREATININE 1.03 MG/DL (0.60-1.30); GLOMERULAR FILTRATION RATE 68 ML/MIN (>89); GLUCOSE,RANDOM 139 MG/DL (74-106); MAGNESIUM 2.4 MG/DL (1.5-2.5); PHOSPHORUS 3.3 MG/DL (2.5-4.9); SODIUM (NA) 144 MEQ/L (136-145)
[2017-08-26 07:54] LABS: ALKALINE PHOSPHATASE 59 U/L (45-117); ALT (GPT) 19 U/L (12-78); TOTAL BILIRUBIN ADULT 0.4 MG/DL (0.2-1.0); TOTAL PROTEIN 6.6 GM/DL (6.4-8.2); TROPONIN I 0.03 NG/ML (0.02-0.05)
--- NOTE | 2017-08-26 08:12 | PD.PROCEDR ---
Procedure Note Procedure Procedure: Right 20 F chest tube placement Indication: Moderate-sized right pneumothorax despite chest tubes 2 Details of procedure: Informed consent was obtained from the patient's daughter after discussion of risks, benefits, alternatives. The patient was positioned. He was given total Versed 0.5 mg IV for anxiolysis. The lateral chest wall was cleaned with ChloraPrep x2. E. 1% lidocaine 4cc, was used for local anesthesia and injected into the subcutaneous and deep muscle tissues. 1 cm skin incision was made a scalpel blade. A hemostat was used for blunt dissection. The hemostat was entered into the pleural space superior to the rib with release of air. Wound was explored with my finger. A size 20 German chest tube was inserted =into the pleural cavity and directed toward the apex to a depth of 14 cm. 2-0 silk was used to close the wound and to secure the chest tube. A sterile dressing was applied. The chest tube was connected to a Pleur-evac drainage system -20 cm. There was a 2+ air leak. Estimated blood loss: <1 mL Complications: None. Stat chest x-ray is pending Shivani Whitman MD Aug 26, 2017 08:12
[2017-08-26 08:26] LABS: BANDS 12 % (0-6); LYMPHOCYTES 2 % (9-44); MONOCYTES 6 % (0-8); NEUTROPHIL # MANUAL DIFF 21.7 TH/MM3 (1.8-7.7); POLYS (SEG NEUTROPHILS) 80 % (16-70)
[2017-08-26] MEDS: methylPREDNISolone SOD SUCC 40 MG/1 ML VIAL IV PUSH SCH ×2 (09:00→21:24)
--- NOTE | 2017-08-26 09:02 | RADRPT ---
EXAM DATE/TIME: 08/26/2017 08:23 [facility] COMPARISON: CHEST SINGLE AP, August 26, 2017, 5:31. INDICATIONS : pneumothorax s/p chest tube. MEDICAL HISTORY : Chronic obstructive pulmonary disease. Cardiovascular disease. Carcinoma, lung. SURGICAL HISTORY : chest tube x 2. ENCOUNTER: Subsequent ACUITY: 4 - 6 days PAIN SCORE: Non-responsive. LOCATION: Bilateral chest FINDINGS: A single view of the chest demonstrates a small caliber right chest tube and 2 larger caliber right c hest tubes. Small residual pneumothorax, improved from exam performed earlier today. Slightly improve d aeration of the right lung as well. No new infiltrate on the left. Subcutaneous air remains in the right chest wall. CONCLUSION: 1. Additional placement of a third right chest tube with improvement in right pneumothorax. Small res idual pneumothorax remains. Improved aeration right lung base. Left lung remains relatively clear. Glen Mohr MD on August 26, 2017 at 8:59 Board Certified Radiologist. This report was verified electronically.
[2017-08-26] MEDS: ASPIRIN 325 MG TAB PO SCH (09:24)
[2017-08-26] MEDS: guaiFENesin E.R. 600 MG TAB PO SCH ×2 (09:24→21:00)
[2017-08-26] MEDS: CETIRIZINE HCL 10 MG TAB PO SCH (09:24)
[2017-08-26] MEDS: DOCUSATE SODIUM 50 MG/SENNA 8.6 MG TAB PO SCH ×2 (09:24→21:00)
[2017-08-26] MEDS: ENOXAPARIN SODIUM 30 MG/0.3 ML SYRINGE SQ SCH (09:25)
[2017-08-26] MEDS: SODIUM CHLORIDE 0.9% FLUSH 10 ML FLUSH IV FLUSH SCH ×2 (09:25→21:24)
[2017-08-26] MEDS: UMECLIDINIUM 62.5 MCG/VILANTEROL 25 MCG INHALER INH SCH (09:26)
[2017-08-26] MEDS: BUDESONIDE-FORMOTEROL 160/4.5 MCG INHALER INH SCH ×2 (09:26→21:25)
[2017-08-26] MEDS: MEGESTROL ACETATE 40 MG TAB PO SCH ×2 (09:26→21:00)
[2017-08-26] MEDS ORDERED: MIDAZOLAM HCL 2 MG/2 ML VIAL IV ONE (10:00)
--- NOTE | 2017-08-26 11:41 | HHI.HCPN ---
Reason for visit a. To assist with evaluation and management of symptoms including: Pain, short of breath b. To assist medical decision maker(s) with: better understanding of current medical conditions; weighing benefits/burdens of medical treatment options; making medical treatment decisions. . Subjective/Interval History INTERVAL NOTE: Overnight, the patient became more dyspneic, and this morning a third chest tube was placed on the right; there remains persistent air leak, but the follow- up chest x-ray demonstrates improved reexpansion. The patient remains somewhat dyspneic, and when he was on room air for less than 5 minutes this morning his saturation had dropped to the upper 80s, but then improved when 4 L nasal cannula was reapplied. He continues to have some pain associated with the chest tubes, and the PRN opiates that he receives do help temporarily. The patient is weaker, but he is still alert and conversant. He tells me that he is "not sure how long I want to keep trying this." He understands that he can transition to hospice care at some point if he decides to do that. He says he has spoken with his daughter about it. . Family/friend interactions Dr. Wilson spoke with patient's daughter again this morning, as I had last evening. She is supporting his wishes at this point. . Advance Directives Living Will: Never completed Health Care Surrogate: Completed, but not made available Durable Power of Buyer Broker: Completed, but not made available Advance Directive Specifics Health Care Surrogate(s): Patient's daughter Melanie . Objective Vital Signs Date Time Temp Pulse Resp B/P (MAP) Pulse Ox O2 Delivery O2 Flow Rate FiO2 08/26/17 09:31 93 Simple Mask 10.00 08/26/17 06:41 97.5 145 23 136/94 (108) 94 08/26/17 06:25 94 08/26/17 06:00 93 Simple Mask 8.00 Humidified 08/26/17 06:00 143 93 08/26/17 05:45 94 Simple Mask 8.00 08/26/17 05:30 93 Nasal Cannula 6.00 08/26/17 05:12 145 92 08/26/17 04:34 97.2 122 18 117/57 (77) 96 08/26/17 02:42 95 Nasal Cannula 2.00 08/26/17 01:23 97.3 117 18 115/64 (81) 94 08/26/17 00:15 118 08/25/17 23:52 93 Nasal Cannula 2.00 08/25/17 21:05 97.1 120 18 105/61 (76) 94 08/25/17 20:06 119 08/25/17 19:51 3.00 08/25/17 18:23 4.00 08/25/17 16:40 97.9 117 20 106/67 (80) 91 08/25/17 15:45 113 08/25/17 15:19 92 Nasal Cannula 2.00 08/25/17 12:39 97.4 103 20 91/55 (67) 95 Intake & Output 08/26/17 08/26/17 07:00 19:00 Output Total 150 ml Balance -150 ml Output Urine Total 150 ml Physical Exam CONSTITUTIONAL/GENERAL: This is an elderly, frail, disheveled patient, with mild apparent dyspnea with talking, appears profoundly weak. TUBES/LINES/DRAINS: Chest tubes 3 on the right, [place], IV access NECK: Trachea midline. Supple, nontender. No palpable thyroid enlargement or nodularity. CARDIOVASCULAR: Regular rate and rhythm without murmurs, gallops, or rubs. No JVD. Peripheral pulses quite diminished. RESPIRATORY/CHEST: Symmetric, breath sounds diminished but equal bilateral. Some scattered rhonchi GASTROINTESTINAL: Abdomen soft, non-tender, nondistended. No hepato-splenomegaly , or palpable masses. No guarding. Bowel sounds present. MUSCULOSKELETAL: Extremities without clubbing, cyanosis, or edema. No joint tenderness or effusion noted. No calf tenderness. No mottling or clubbing. NEUROLOGICAL: Awake and alert. Motor and sensory grossly within normal limits, but quite weak. Follows commands. Remains cognitively sharp. Moves all extremities. PSYCHIATRIC: No obvious anxiety/depression. no apparent hallucinations or other psychotic thought process. . Diagnostic Tests Laboratory Laboratory Tests Test 08/23/17 22:22 08/24/17 11:30 08/24/17 14:15 08/24/17 16:55 Lactic Acid Level 3.3 mmol/L (0.4-2.0) 2.8 mmol/L (0.4-2.0) Total Creatine Kinase 106 U/L (39-308) 112 U/L (39-308) Troponin I LESS THAN 0.02 NG/ML LESS THAN 0.02 NG/ML Test 08/25/17 07:20 08/26/17 06:50 White Blood Count 23.2 TH/MM3 (4.0-11.0) 23.6 TH/MM3 (4.0-11.0) Red Blood Count 4.07 MIL/MM3 (4.50-5.90) 4.28 MIL/MM3 (4.50-5.90) Hemoglobin 13.1 GM/DL (13.0-17.0) 13.7 GM/DL (13.0-17.0) Hematocrit 39.4 % (39.0-51.0) 41.8 % (39.0-51.0) Mean Corpuscular Volume 96.8 FL (80.0-100.0) 97.4 FL (80.0-100.0) Mean Corpuscular Hemoglobin 32.3 PG (27.0-34.0) 31.9 PG (27.0-34.0) Mean Corpuscular Hemoglobin Concent 33.4 % (32.0-36.0) 32.7 % (32.0-36.0) Red Cell Distribution Width 12.7 % (11.6-17.2) 12.9 % (11.6-17.2) Platelet Count 142 TH/MM3 (150-450) 177 TH/MM3 (150-450) Mean Platelet Volume 10.7 FL (7.0-11.0) 11.5 FL (7.0-11.0) Neutrophils (%) (Auto) 94.2 % (16.0-70.0) 94.5 % (16.0-70.0) Lymphocytes (%) (Auto) 1.9 % (9.0-44.0) 1.1 % (9.0-44.0) Monocytes (%) (Auto) 3.8 % (0.0-8.0) 3.7 % (0.0-8.0) Eosinophils (%) (Auto) 0.0 % (0.0-4.0) 0.3 % (0.0-4.0) Basophils (%) (Auto) 0.1 % (0.0-2.0) 0.4 % (0.0-2.0) Neutrophils # (Auto) 21.9 TH/MM3 (1.8-7.7) 22.3 TH/MM3 (1.8-7.7) Lymphocytes # (Auto) 0.5 TH/MM3 (1.0-4.8) 0.3 TH/MM3 (1.0-4.8) Monocytes # (Auto) 0.9 TH/MM3 (0-0.9) 0.9 TH/MM3 (0-0.9) Eosinophils # (Auto) 0.0 TH/MM3 (0-0.4) 0.1 TH/MM3 (0-0.4) Basophils # (Auto) 0.0 TH/MM3 (0-0.2) 0.1 TH/MM3 (0-0.2) CBC Comment DIFF FINAL AUTO DIFF Differential Comment FINAL DIFF MANUAL Blood Urea Nitrogen 29 MG/DL (7-18) 26 MG/DL (7-18) Creatinine 1.18 MG/DL (0.60-1.30) 1.03 MG/DL (0.60-1.30) Random Glucose 117 MG/DL (74-106) 139 MG/DL (74-106) Total Protein 5.9 GM/DL (6.4-8.2) 6.6 GM/DL (6.4-8.2) Albumin 2.4 GM/DL (3.4-5.0) 2.4 GM/DL (3.4-5.0) Calcium Level 8.5 MG/DL (8.5-10.1) 7.8 MG/DL (8.5-10.1) Alkaline Phosphatase 59 U/L (45-117) 59 U/L (45-117) Aspartate Amino Transf (AST/SGOT) 16 U/L (15-37) 20 U/L (15-37) Alanine Aminotransferase (ALT/SGPT) 16 U/L (12-78) 19 U/L (12-78) Total Bilirubin 0.4 MG/DL (0.2-1.0) 0.4 MG/DL (0.2-1.0) Sodium Level 145 MEQ/L (136-145) 144 MEQ/L (136-145) Potassium Level 4.6 MEQ/L (3.5-5.1) 4.2 MEQ/L (3.5-5.1) Chloride Level 107 MEQ/L (98-107) 108 MEQ/L (98-107) Carbon Dioxide Level 26.6 MEQ/L (21.0-32.0) 30.1 MEQ/L (21.0-32.0) Anion Gap 11 MEQ/L (5-15) 6 MEQ/L (5-15) Estimat Glomerular Filtration Rate 58 ML/MIN (>89) 68 ML/MIN (>89) Phosphorus Level 2.9 MG/DL (2.5-4.9) 3.3 MG/DL (2.5-4.9) Magnesium Level 2.3 MG/DL (1.5-2.5) 2.4 MG/DL (1.5-2.5) Total Creatine Kinase 98 U/L (39-308) 180 U/L (39-308) Troponin I LESS THAN 0.02 NG/ML 0.03 NG/ML (0.02-0.05) Differential Total Cells Counted 100 Neutrophils % (Manual) 80 % (16-70) Band Neutrophils % 12 % (0-6) Lymphocytes % 2 % (9-44) Monocytes % 6 % (0-8) Neutrophils # (Manual) 21.7 TH/MM3 (1.8-7.7) Platelet Estimate NORMAL (NORMAL) Platelet Morphology Comment NORMAL (NORMAL) Lactic Acid Level 1.6 mmol/L (0.4-2.0) Creatine Kinase MB 5.4 NG/ML (0.5-3.6) Result Diagram: 08/26/17 0650 08/26/17 0650 Microbiology Microbiology Date/Time Source Procedure Growth Status 08/23/17 22:27 Blood Peripheral Aerobic Blood Culture - Preliminary NO GROWTH IN 3 DAYS Resulted 08/23/17 22:27 Blood Peripheral Anaerobic Blood Culture - Preliminary NO GROWTH IN 3 DAYS Resulted 08/23/17 22:22 Blood Peripheral Aerobic Blood Culture - Preliminary NO GROWTH IN 3 DAYS Resulted 08/23/17 22:22 Blood Peripheral Anaerobic Blood Culture - Preliminary NO GROWTH IN 3 DAYS Resulted Imaging Last Impressions Chest X-Ray 08/26/17 0000 Signed Impressions: Service Date/Time: Saturday, August 26, 2017 08:23 - CONCLUSION: 1. Additional placement of a third right chest tube with improvement in right pneumothorax. Small residual pneumothorax remains. Improved aeration right lung base. Left lung remains relatively clear. Glen Mohr MD Chest CT 08/22/17 1119 Signed Impressions: Service Date/Time: Tuesday, August 22, 2017 12:49 - CONCLUSION: Large right pneumothorax in spite of chest tube. Findings were called to the floor Shawn Meza MD FACR Chest Tube Insertion 08/15/17 0000 Signed Impressions: Service Date/Time: Tuesday, August 15, 2017 12:00 - CONCLUSION: Uncomplicated chest tube placement as above. J Carlos Bunch MD Chest Tube Change 08/14/17 0000 Signed Impressions: Service Date/Time: August 09:10 - CONCLUSION: Uncomplicated chest tube exchange as above. J Carlos Bunch MD Thoracentesis Ultrasound 08/13/17 0000 Signed Impressions: Service Date/Time: Sunday, August 13, 2017 11:45 - CONCLUSION: Right thoracentesis with with a subsequent right pneumothorax. This was treated with a 10 [place] catheter. The catheter was sutured in place and will need to be followed. J Carlos Diana MD CT Angiography 08/12/171925 Signed Impressions: Service Date/Time: Saturday, August 12, 2017 20:57 - CONCLUSION: 1. No evidence of pulmonary embolism. 2. Right pleural effusion Charly Medrano MD Procedures Chest tube procedures 4 . Assessment and Plan Disease Oriented Problem List: (1) pneumonia (2) pneumothorax, with persistent air leak (3) moderately severe COPD, bullous emphysema (4) peripheral vascular disease (5) skin cancers, excisions (6) skin cancers, excisions degenerative joint disease (7) anxiety (8) BPH Symptom Scale: (1) dyspnea 0-10 Scale: Unable to quantify (2) pain 0-10 Scale: 5 (intermittent, stabbing) (3) anxiety 0-10 Scale: 0 Pertinent Non-Medical Issues Psychosocial: , one daughter, own motels in the past. Spiritual: The patient is Spiritism, and spirituality is very important for him. A sanitation lead has visited him here in the hospital. Legal: The patient has capacity for decision-making. He reports that his daughter is the designated health care surrogate. Ethical issues impacting care: None . Important Contacts Daughter: Melanie Love [phone] . Prognosis The patient's overall prognosis is rather poor. He has underlying severe bullous emphysema, has been increasingly debilitated for the past couple years with marked weight loss and weakness requiring the use of a walker at home, and now he has a prolonged hospitalization, currently with pneumonia. He would be appropriate for hospice services if he feels that his goals will be completely comfort oriented. . Code Status: No Code Plan * DO NOT RESUSCITATE, per request of patient 08/25/17, and confirmed by patient' s daughter * DECISION-MAKING: The patient has capacity for decision-making. He reports that his daughter is the designated health care surrogate. * GOALS: The patient is very clear that he would not want any resuscitation and would not want to be on life support. He does recognize that he has declined significantly over the past couple weeks in the hospital, that it is unlikely that he will be able to return home to live alone, and he continues to consider whether to transition to hospice services to focus on his symptoms and comfort. * SYMPTOMS: PAIN: The patient has been receiving parenteral morphine once or twice per day, and also oxycodone once or twice per day, and he says the pain medicine is in fact helping his pain. DYSPNEA: The patient has ongoing mild dyspnea. I have no further medication recommendations at this time. * Palliative Care will continue to follow the patient during this hospitalization. . Time Spent Total Floor Time (mins): 36 Face to Face Time (mins): 24 >50% Counseling/Coord of Care: Yes (d/w Dr. Wilson) Attestation To help prompt me to consider important information that might be impacting today's encounter and assessment, information from prior notes written by myself or my colleagues may have been "brought forward" into today's note. My signature on this note, however, is an attestation that I personally performed the exam, history, and/or decision-making noted today, and, unless otherwise indicated, the interactions with patient, family, and staff as well as the review of records all occurred today. I also attest that the listed assessment and stated plan reflect my best clinical judgment today based on the combination of historical information, prior notes, and today's exam/ interactions. When time spent is documented, it refers only to time spent today by the signer, or if indicated, combined time spent today by collaborating physician/nurse practitioner. Nadya Rodrigues MD Aug 26, 2017 11:41
[2017-08-26 14:29] LABS: TROPONIN I 0.15 NG/ML (0.02-0.05)
--- NOTE | 2017-08-26 15:11 | PD.CONS ---
HPI Service Critical Care Medicine Consult Requested By Dr Howard Primary Care Physician Shawn Matute, History of Present Illness HPI: 86-year-old male with a medical history significant for COPD, lung cancer previously treated with chemotherapy and radiation who was admitted on 2017 by hospitalist service for worsening shortness of breath and cough. He was found to have moderate to large right pleural effusion for which he underwent thoracentesis by IR which was complicated by a pneumothorax for which patient underwent rr pigtail catheter placement. Patient had persistent pneumothorax and subsequently underwent a large bore chest tube placement. He was evaluated by pulmonary medicine as well as CT surgery for persistent air leak/pneumothorax. Apparently his pigtail catheter and chest tube stopped having air leak. Patient developed worsening respiratory distress on the floor this morning for which rapid response team was called. Stat chest x-ray revealed a right pneumothorax with chest tube and pigtail catheter in place however no air leak was noted on my evaluation at bedside in either tubes in the pleurovacs. Patient was transferred to the ICU. After speaking with the patient's daughter by phone who consented to chest tube placement, right sided 20 Welsh chest tube placed under local anesthesia following with there was persistent air leak from newly inserted chest tube with postprocedure chest x- ray revealing reexpansion of lung and improvement in patient's respirations and O2 sats. Patient did receive Solu-Medrol 125 mg IV 1 dose as well as Lasix IV , Cardizem 20 mg IV earlier during [facility]. Patient is a DNR status per discussion with patient's daughter as well as Dr. Rodrigues palliative care. ROS - General Review of Systems Limited due to respiratory extremis PFSH Past Family Social History Past Medical History sees a heart doctor- for irrregular rhythm - had holter done, and was told he will see this heart doc in a year- [facility]- was seen by Dr Johnston 15yrs ago, no intervention, but was placed on ASA since then COPD - NOT on oxygen BPH- saw pametto chronic LE pedal edema- usually goes away with raising feet at night, but chair is not working now and uses pillow right lung cancer NSCLC- s/p chemo and radiation- remission for 48 months now anxiety osteoarthritis RIght UE basal cell carcinoma of skin Past Surgical History skin cancer removal bilateral hip sx right knee sx - 17 yrs ago Allergies: Coded Allergies: No Known Allergies (Verified Adverse Reaction, Unknown, 08/12/17) Family History dad- cva, pad mother lung cancer Social History quit smoking 30yrs ago no etoh abuse no drugs lives on his own, walks with a walker, still driving daughter lives in [place] Current Medications Sodium Chloride (NS Flush) 2 ml UNSCH PRN IVF FLUSH AFTER USING IV ACCESS; Start 08/12/17 at 19:30; Stop 08/12/17 at 22:37; Status DC Acetaminophen (Tylenol) 650 mg ONCE ONCE PO Last administered on 08/12/17at 22: 07; Start 08/12/17 at 21:00; Stop 08/12/17 at 21:01; Status DC Ceftriaxone Sodium 1000 mg/ Sodium Chloride 100 ml @ 200 mls/hr ONCE ONCE IV Last administered on 08/12/17at 21:00; Start 08/12/17 at 21:00; Stop 08/12/17 at 21:29; Status DC Azithromycin 500 mg/Sodium Chloride 250 ml @ 250 mls/hr ONCE ONCE IV Last administered on 08/12/17at 21:00; Start 08/12/17 at 21:00; Stop 08/12/17 at 21:59 ; Status DC Iohexol (Omnipaque 350 Inj) 75 ml STK-MED ONCE IVCONTRAST Last administered on 08/12/17at 21:12; Start 08/12/17 at 21:12; Stop 08/12/17 at 21:13; Status DC Sodium Chloride (NS Flush) 2 ml UNSCH PRN IV FLUSH FLUSH AFTER USING IV ACCESS ; Start 08/12/17 at 22:30; Stop 08/24/17 at 11:32; Status DC Sodium Chloride (NS Flush) 2 ml BID IV FLUSH Last administered on 08/24/17at 09: 00; Start 08/13/17 at 09:00; Stop 08/24/17 at 11:32; Status DC Heparin Sodium (Porcine) (Heparin Inj) 5,000 units Q8HR SQ ; Start 08/12/17 at 06:00; Status Cancel Naloxone HCl (Narcan Inj) 0.4 mg UNSCH PRN IV PUSH SEE LABEL COMMENTS; Start at 22:30; Stop 08/23/17 at 11:25; Status DC Albuterol/ Ipratropium (Duoneb Neb) 1 ampule Q4HR NEB NEB Last administered on 08/13/17at 07:58; Start 08/13/17 at 00:00; Stop 08/13/17 at 08:14; Status DC Albuterol/ Ipratropium (Duoneb Neb) 1 ampule Q2HR NEB PRN NEB sob, wheeze; Start 08/12/17 at 22:30 Heparin Sodium (Porcine) (Heparin Inj) 5,000 units Q8HR SQ Last administered on 08/13/17at 06:30; Start 08/13/17 at 06:00; Stop 08/13/17 at 17:29; Status DC Albuterol/ Ipratropium (Duoneb Neb) 1 ampule Q4HR WHILE AWAKE NEB NEB Last administered on 08/16/17at 12:20; Start 08/13/17 at 12:00; Stop 08/16/17 at 14:20; Status DC Aspirin (Ecotrin Ec) 81 mg DAILY PO Last administered on 08/24/17at 08:22; Start 08/14/17 at 09:00; Stop 08/24/17 at 11:30; Status DC Lorazepam (Ativan) 1 mg TID PO Last administered on 08/16/17at 09:12; Start 08/13 at 13:00; Stop 08/16/17 at 11:22; Status DC Levofloxacin (Levaquin) 750 mg Q2D PO ; Start 08/14/17 at 11:00; Stop 08/14/17 at 11:00; Status DC Enoxaparin Sodium (Lovenox Inj) 40 mg Q24H SQ ; Start 08/14/17 at 09:00; Stop 08/14/17 at 09:00; Status DC Enoxaparin Sodium (Lovenox Inj) 30 mg DAILY SQ ; Start 08/14/17 at 09:00; Stop at 09:00; Status DC Levofloxacin (Levaquin) 500 mg Q24H PO Last administered on 08/14/17at 15:11; Start 08/13/17 at 14:00; Stop 08/15/17 at 16:00; Status DC Enoxaparin Sodium (Lovenox Inj) 30 mg DAILY SQ Last administered on 08/26/17at 09:25; Start 08/14/17 at 09:00 Fentanyl Citrate (fentaNYL INJ) 50 mcg STK-MED ONCE IV Last administered on 08/14at 10:00; Start 08/14/17 at 10:00; Stop 08/14/17 at 10:39; Status DC Midazolam HCl (Versed Inj) STK-MED ONCE IV ; Start 08/14/17 at 10:00; Stop at 10:39; Status DC Midazolam HCl (Versed Inj) 5 mg STK-MED ONCE .ROUTE Last administered on at 12:18; Start 08/15/17 at 12:18; Stop 08/15/17 at 12:19; Status DC Fentanyl Citrate (fentaNYL INJ) 250 mcg STK-MED ONCE .ROUTE Last administered on 08/15/17at 12:19; Start 08/15/17 at 12:19; Stop 08/15/17 at 12:20; Status DC Levofloxacin (Levaquin) 500 mg Q24H PO Last administered on 08/23/17at 16:23; Start 08/15/17 at 16:00; Stop 08/23/17 at 22:01; Status DC Lorazepam (Ativan) 1 mg ONCE ONCE PO Last administered on 08/16/17at 02:48; Start 08/16/17 at 02:45; Stop 08/16/17 at 02:46; Status DC Lorazepam (Ativan) 1 mg DAILY@0800,1800,2300 PO Last administered on 08/26/17at 01:18; Start 08/16/17 at 18:00 Albuterol/ Ipratropium (Duoneb Neb) 1 ampule Q4HR WHILE AWAKE NEB NEB Last administered on 08/20/17at 12:47; Start 08/16/17 at 16:00; Stop 08/20/17 at 15:59; Status DC Methocarbamol (Robaxin) 500 mg TID PRN PO muscle spasm Last administered on 04/02at 09:14; Start 08/16/17 at 14:30 Cetirizine HCl (ZyrTEC) 10 mg DAILY PO Last administered on 08/26/17at 09:24; Start 08/16/17 at 14:30 Senna/Docusate Sodium (Susu-Colace) 1 tab BID PO Last administered on 3/10/ 18at 09:14; Start 08/18/17 at 21:00; Stop 08/23/17 at 11:26; Status DC Polyethylene Glycol (Miralax) 17 gm ONCE ONCE PO Last administered on at 16:51; Start 08/18/17 at 16:15; Stop 08/18/17 at 16:16; Status DC Guaifenesin (Mucinex Er) 600 mg BID PO Last administered on 08/26/17at 09:24; Start 08/22/17 at 12:45 Iohexol (Omnipaque 350 Inj) 75 ml STK-MED ONCE IVCONTRAST Last administered on 08/22/17at 13:03; Start 08/22/17 at 13:03; Stop 08/22/17 at 13:04; Status DC Midazolam HCl (Versed Inj) 5 mg ONCE ONCE IV PUSH ; Start 08/22/17 at 13:45; Stop 08/22/17 at 14:07; Status DC Midazolam HCl (Versed Inj) 5 mg STK-MED ONCE .ROUTE ; Start 08/22/17 at 13:34; Stop 08/22/17 at 13:35; Status DC Dextrose (D50w (Vial) Inj) 50 ml UNSCH PRN IV PUSH HYPOGLYCEMIA-SEE COMMENTS; Start 08/22/17 at 20:45; Stop 08/22/17 at 20:45; Status DC Glucagon (Glucagon Inj) 1 mg UNSCH PRN OTHER HYPOGLYCEMIA-SEE COMMENTS; Start 08/22/17 at 20:45; Stop 08/22/17 at 20:45; Status DC Acetaminophen (Tylenol) 650 mg ONCE ONCE PO Last administered on 08/22/17at 22: 45; Start 08/22/17 at 22:45; Stop 08/22/17 at 22:46; Status DC Acetaminophen/ Hydrocodone Bitart (Barling 5-325 Mg) 1 tab ONCE ONCE PO Last administered on 08/23/17at 02:51; Start 08/23/17 at 02:45; Stop 08/23/17 at 02:46 ; Status DC Acetaminophen/ Hydrocodone Bitart (Barling 7.5-325 Mg) 1 tab ONCE ONCE PO Last administered on 08/23/17at 07:13; Start 08/23/17 at 07:00; Stop 08/23/17 at 07:01 ; Status DC Naloxone HCl (Narcan Inj) 0.4 mg UNSCH PRN IV PUSH SEE LABEL COMMENTS; Start at 11:30; Stop 08/24/17 at 11:34; Status DC Senna/Docusate Sodium (Susu-Colace) 1 tab BID PO Last administered on at 09:24; Start 08/23/17 at 21:00 Magnesium Hydroxide (Milk Of Magnesia Liq) 30 ml Q12H PRN PO Mild constipation Last administered on 08/25/17at 21:40; Start 08/23/17 at 11:30 Sennosides (Senokot) 17.2 mg Q12H PO Last administered on 08/26/17at 13:03; Start 08/23/17 at 12:00 Bisacodyl (Dulcolax Supp) 10 mg DAILY PRN RECTAL SEVERE CONSITIPATION; Start at 11:30 Lactulose (Lactulose Liq) 30 ml DAILY PRN PO SEVERE CONSITIPATION; Start at 11:30 Sodium Chloride (NS Flush) 2 ml UNSCH PRN IV FLUSH FLUSH AFTER USING IV ACCESS ; Start 08/23/17 at 11:30 Sodium Chloride (NS Flush) 2 ml BID IV FLUSH Last administered on 08/26/17at 09: 25; Start 08/23/17 at 21:00 Acetaminophen (Tylenol) 650 mg Q4H PRN PO TEMP > 100.4; Start 08/23/17 at 11:30 Ondansetron HCl (Zofran Inj) 4 mg Q6H PRN IVP NAUSEA OR VOMITING; Start at 11:30 Metoclopramide HCl (Reglan Inj) 5 mg Q6H PRN IV PUSH NAUSEA OR VOMITING; Start 08/23/17 at 11:30 Acetaminophen (Tylenol) 650 mg Q6H PRN PO PAIN SCALE 1 TO 2; Start 08/23/17 at 11:30 Oxycodone/ Acetaminophen (Percocet 5-325 Mg) 1 tab Q6H PRN PO PAIN SCALE 3 TO 5; Start 08/23/17 at 11:30 Oxycodone/ Acetaminophen (Percocet 10-325 Mg) 1 tab Q6H PRN PO PAIN SCALE 6 TO 10 Last administered on 08/26/17 04:49; Start 08/23/17 at 11:30 Morphine Sulfate (Morphine Inj) 2 mg Q3H PRN IV PUSH Pain 3-5; Last administered on 08/26/17 13:17; Start 08/23/17 at 11:30 Morphine Sulfate (Morphine Inj) 4 mg Q3H PRN IV PUSH Pain 6-10; Last administered on 08/26/17at 05:50; Start 08/23/17 at 11:30 Morphine Sulfate (Morphine Inj) 4 mg Q1H PRN IV PUSH PAIN SCALE 7-10 ( INTRACTABLE); Start 08/23/17 at 11:30 Morphine Sulfate (Morphine Inj) 4 mg Q3H PRN IV PUSH BREAKTHROUGH PAIN Last administered on 08/25/17 06:32; Start 08/23/17 at 11:30 Naloxone HCl (Narcan Inj) 0.4 mg UNSCH PRN IV PUSH SEE LABEL COMMENTS; Start at 11:30 Albuterol/ Ipratropium (Duoneb Neb) 1 ampule Q4HR NEB NEB Last administered on 08/26/17 09:24; Start 08/23/17 at 12:00 Methylprednisolone Sodium Succinate (SoluMEDROL INJ) 40 mg Q12HR IV PUSH Last administered on 08/25/17 21:16; Start 08/23/17 at 12:00 Budesonide/ Formoterol Fumarate (Symbicort 160-4.5 Mcg Inh) 2 puff Q12HR INH Last administered on 08/26/17 09:26; Start 08/23/17 at 12:00 Megestrol Acetate (Megace) 400 mg Q12HR PO Last administered on 08/26/17 09:26 ; Start 08/23/17 at 21:00 Piperacillin Sod/ Tazobactam Sod 100 ml @ 200 mls/hr Q6H IV Last administered on 08/26/17 09:25; Start 08/23/17 at 22:00 Azithromycin 500 mg/Sodium Chloride 250 ml @ 250 mls/hr Q24H IV Last administered on 08/26/17 01:18; Start 08/23/17 at 23:00 Sodium Chloride 250 ml @ 250 mls/hr BOLUS ONCE IV Last administered on at 10:45; Start 08/24/17 at 10:45; Stop 08/24/17 at 11:44; Status DC Aspirin (Aspirin Chew) 243 mg NOW ONCE PO Last administered on 08/24/17at 12:19 ; Start 08/24/17 at 11:45; Stop 08/24/17 at 11:46; Status DC Aspirin (Aspirin) 325 mg DAILY PO Last administered on 08/26/17at 09:24; Start 08/25/17 at 09:00 Nitroglycerin (Nitrostat Sl) 0.4 mg Q5M PRN SL X 3 doses for chest pain; Start 08/24/17 at 11:15 Sodium Chloride 1,000 ml @ 100 mls/hr Q10H IV Last administered on 08/26/17at 04:49; Start 08/24/17 at 12:04; Stop 08/26/17 at 05:25; Status DC Methylprednisolone Sodium Succinate (SoluMEDROL INJ) 40 mg ONCE ONCE IV PUSH Last administered on 08/26/17at 05:49; Start 08/26/17 at 05:30; Stop 08/26/17 at 05:35; Status DC Furosemide (Lasix Inj) 40 mg ONCE ONCE IV PUSH Last administered on 08/26/17at 05:50; Start 08/26/17 at 05:30; Stop 08/26/17 at 05:35; Status DC Diltiazem HCl (Cardizem Inj) 20 mg STAT ONCE IV ; Start 08/26/17 at 06:45; Stop 08/26/17 at 06:46; Status DC Methylprednisolone Sodium Succinate (SoluMEDROL INJ) 125 mg STK-MED ONCE .ROUTE ; Start 08/26/17 at 06:45; Stop 08/26/17 at 06:46; Status DC Methylprednisolone Sodium Succinate (SoluMEDROL INJ) 125 mg ONCE ONCE IV ; Start 08/26/17 at 07:00; Stop 08/26/17 at 07:01; Status DC Morphine Sulfate (Morphine Inj) 4 mg ONCE ONCE IV ; Start 08/26/17 at 07:00; Stop 08/26/17 at 07:01; Status DC Lidocaine/ Epinephrine (Xylocaine-Epi 1%-1:100,000 Inj) 30 ml STK-MED ONCE .ROUTE ; Start 08/26/17 at 07:39; Stop 08/26/17 at 07:40; Status DC Midazolam HCl (Versed Inj) 5 mg STK-MED ONCE .ROUTE ; Start 08/26/17 at 07:42; Stop 08/26/17 at 07:43; Status DC Midazolam HCl (Versed Inj) 0.5 mg NOW ONCE IV Last administered on 08/26/17at 09:25; Start 08/26/17 at 10:00; Stop 08/26/17 at 10:01; Status DC Physical Exam Vital Signs Vital Signs Date Time Temp Pulse Resp B/P (MAP) Pulse Ox O2 Delivery O2 Flow Rate FiO2 08/26/17 09:31 93 Simple Mask 10.00 08/26/17 08:00 109 08/26/17 08:00 98.0 119 16 99/72 (81) 94 08/26/17 07:00 119 08/26/17 07:00 94 Simple Mask 10.00 08/26/17 06:41 97.5 145 23 136/94 (108) 94 08/26/17 06:25 94 08/26/17 06:00 93 Simple Mask 8.00 Humidified 08/26/17 06:00 143 93 08/26/17 05:45 94 Simple Mask 8.00 08/26/17 05:30 93 Nasal Cannula 6.00 08/26/17 05:12 145 92 08/26/17 04:34 97.2 122 18 117/57 (77) 96 08/26/17 02:42 95 Nasal Cannula 2.00 08/26/17 01:23 97.3 117 18 115/64 (81) 94 08/26/17 00:15 118 08/25/17 23:52 93 Nasal Cannula 2.00 08/25/17 21:05 97.1 120 18 105/61 (76) 94 08/25/17 20:06 119 08/25/17 19:51 3.00 08/25/17 18:23 4.00 08/25/17 16:40 97.9 117 20 106/67 (80) 91 08/25/17 15:45 113 08/25/17 15:19 92 Nasal Cannula 2.00 Physical Exam HEENT/Neuro: Positive pallor, no icterus, tongue moist, LALITA, Awake alert oriented 2, nonfocal grossly, moving all 4 extremities Neck: No JVD Chest/pulmonary: Using accessory muscles of respiration, good air entry bilaterally, scattered rhonchi, no wheezing, right sided pigtail catheter and chest tube in place with no air leak at the time of my evaluation this morning. Cardiovascular: S1-S2 regular no gallop or murmur GI/abdomen: Soft, nontender, bowel sounds present Extremities: Warm bilaterally, no edema Laboratory Laboratory Tests Test 08/26/17 06:50 08/26/17 13:46 White Blood Count 23.6 Red Blood Count 4.28 Hemoglobin 13.7 Hematocrit 41.8 Mean Corpuscular Volume 97.4 Mean Corpuscular Hemoglobin 31.9 Mean Corpuscular Hemoglobin Concent 32.7 Red Cell Distribution Width 12.9 Platelet Count 177 Mean Platelet Volume 11.5 Neutrophils (%) (Auto) 94.5 Lymphocytes (%) (Auto) 1.1 Monocytes (%) (Auto) 3.7 Eosinophils (%) (Auto) 0.3 Basophils (%) (Auto) 0.4 Neutrophils # (Auto) 22.3 Lymphocytes # (Auto) 0.3 Monocytes # (Auto) 0.9 Eosinophils # (Auto) 0.1 Basophils # (Auto) 0.1 CBC Comment AUTO DIFF Differential Total Cells Counted 100 Neutrophils % (Manual) 80 Band Neutrophils % 12 Lymphocytes % 2 Monocytes % 6 Neutrophils # (Manual) 21.7 Differential Comment FINAL DIFF MANUAL Platelet Estimate NORMAL Platelet Morphology Comment NORMAL Blood Urea Nitrogen 26 Creatinine 1.03 Random Glucose 139 Total Protein 6.6 Albumin 2.4 Calcium Level 7.8 Phosphorus Level 3.3 Magnesium Level 2.4 Alkaline Phosphatase 59 Aspartate Amino Transf (AST/SGOT) 20 Alanine Aminotransferase (ALT/SGPT) 19 Total Bilirubin 0.4 Sodium Level 144 Potassium Level 4.2 Chloride Level 108 Carbon Dioxide Level 30.1 Anion Gap 6 Estimat Glomerular Filtration Rate 68 Lactic Acid Level 1.6 Total Creatine Kinase 180 162 Creatine Kinase MB 5.4 Troponin I 0.03 0.15 Date/Time Source Procedure Growth Status 08/23/17 22:27 Blood Peripheral Aerobic Blood Culture - Preliminary NO GROWTH IN 3 DAYS Resulted 08/23/17 22:27 Blood Peripheral Anaerobic Blood Culture - Preliminary NO GROWTH IN 3 DAYS Resulted 08/13/17 14:00 Fluid Pleural Fluid Gram Stain - Final Complete 08/13/17 14:00 Fluid Pleural Fluid Body Fluid Culture - Final NO GROWTH IN 72 HRS.--AEROBICALLY OR ... Complete 08/12/17 20:00 Nasal Washing Influenza Types A,B Antigen (SHIV) - Final NEGATIVE FOR FLU A AND B ANTIGEN.... Complete Result Diagram: 08/26/17 0650 08/26/17 0650 Imaging Last Impressions Chest X-Ray 08/26/17 0000 Signed Impressions: Service Date/Time: Saturday, August 26, 2017 08:23 - CONCLUSION: 1. Additional placement of a third right chest tube with improvement in right pneumothorax. Small residual pneumothorax remains. Improved aeration right lung base. Left lung remains relatively clear. Glen Mohr MD Chest CT 08/22/17 1119 Signed Impressions: Service Date/Time: Tuesday, August 22, 2017 12:49 - CONCLUSION: Large right pneumothorax in spite of chest tube. Findings were called to the floor Shawn Meza MD FACR Chest Tube Insertion 08/15/17 0000 Signed Impressions: Service Date/Time: Tuesday, August 15, 2017 12:00 - CONCLUSION: Uncomplicated chest tube placement as above. J Carlos Bunch MD Chest Tube Change 08/14/17 0000 Signed Impressions: Service Date/Time: August 09:10 - CONCLUSION: Uncomplicated chest tube exchange as above. J Carlos Bunch MD Thoracentesis Ultrasound 08/13/17 0000 Signed Impressions: Service Date/Time: Sunday, August 13, 2017 11:45 - CONCLUSION: Right thoracentesis with with a subsequent right pneumothorax. This was treated with a 10 Welsh catheter. The catheter was sutured in place and will need to be followed. J Carlos Diana MD CT Angiography 08/12/17 1926 Signed Impressions: Service Date/Time: Saturday, August 12, 2017 20:57 - CONCLUSION: 1. No evidence of pulmonary embolism. 2. Right pleural effusion Charly Medrano MD Assessment and Plan Assessment and Plan 86-year-old male with: Acute respiratory failure Persistent pneumothorax status post chest tube placement COPD Pneumonia Tachycardia Right pleural effusion History of lung cancer Plan: Neuro: Morphine for mild grams IV given earlier for discomfort and anxiety. Follow neuro status Cardiovascular: Watch for hypotension. Received Cardizem and Lasix IV during rapid response earlier for hypertension with heart rate 160s. EKG revealed sinus tachycardia. Follow cardiac enzymes Pulmonary: Continue supplemental O2. Right sided chest tube placed for persistent pneumothorax with resolution. Being followed by pulmonary. Plan for possible pleurodesis/ blood patch for 08/27. Continue bronchodilators, IV Solu-Medrol. GI/liver: Advance by mouth diet as tolerated. Renal/: Strict intake output, monitor and replete electro lites, follow BUN/ creatinine. ID: Continue Zithromax/Zosyn. All cultures negative so far. Endocrine: SSI for glycemic control if needed. Heme: Follow CBC Prophylaxis: SCDs. Subcutaneous heparin Condition critical Discussed with Dr. Rodrigues from palliative care earlier. Patient considering hospice. DNR status at this time. Time spent on critical care excluding procedures 60 minutes Viktor Wilson MD Aug 26, 2017 15:11
[2017-08-26] MEDS ORDERED: LORazepam 2 MG/ML VIAL IV PUSH ONE (18:15)
--- NOTE | 2017-08-26 19:16 | EKG ---
Date Performed: 08/26/2017 Time Performed: 06:43:40 PTAGE: 86 years EKG: Probable sinus tachycardia. Poor R wave progression - probable normal variant Generalized l ow QRS voltages Borderline ECG Since the PREVIOUS TRACING , no significant change noted DOCTOR: Alireza Hopson Interpretating Date/Time 08/26/2017 19:15:51
--- NOTE | 2017-08-26 19:28 | RADRPT ---
EXAM DATE/TIME: 08/26/2017 19:00 [facility] COMPARISON: CHEST SINGLE AP, August 26, 2017, 8:23. INDICATIONS : Chest pain. MEDICAL HISTORY : Carcinoma, lung. Chronic obstructive pulmonary disease. Cardiovascular disease. SURGICAL HISTORY : chest tube x2 ENCOUNTER: Subsequent ACUITY: 1 week PAIN SCORE: 0/10 LOCATION: Bilateral chest FINDINGS: Patchy, basilar predominant consolidation again seen on the right with volume loss, slightly improved in the interim. 3 chest tubes remain in place. There is a small apical pneumothorax not significantl y changed. Left lung remains clear. CONCLUSION: Small right apical pneumothorax is not significantly changed. 3 chest tubes remain in place. Slightly improved right lung parenchymal consolidation and volume loss. J Carlos Frederick MD on August 26, 2017 at 19:25 Board Certified Radiologist. This report was verified electronically.
[2017-08-26] MEDS ORDERED: SODIUM CHLOR 0.9% 250 ML INJ 250 ML IV ONE (21:00)
[2017-08-27] VITALS (11 sets, daily range): BP systolic 92–141; BP diastolic 50–75; PULSE 110–141; RESP 18–32; TEMP 97.5–98.1; O2SAT 93–100
[2017-08-27] MEDS: LORazepam 1 MG TAB PO PRN ×2 (02:16→10:43)
[2017-08-27] MEDS: RESP: ALBUTEROL 2.5 MG/IPRATROPIUM 0.5 MG NEB (SCH) NEB ×3 (03:19→11:17)
[2017-08-27] MEDS: PIPERACIL-TAZO 4.5 GM PREMIX 100 ML IV SCH ×4 (03:38→20:14)
[2017-08-27] MEDS: ENOXAPARIN SODIUM 30 MG/0.3 ML SYRINGE SQ SCH (08:00)
[2017-08-27] MEDS: MEGESTROL ACETATE 40 MG TAB PO SCH ×2 (08:01→19:32)
[2017-08-27] MEDS: ASPIRIN 325 MG TAB PO SCH (08:01)
[2017-08-27] MEDS: methylPREDNISolone SOD SUCC 40 MG/1 ML VIAL IV PUSH SCH ×2 (08:01→19:42)
[2017-08-27] MEDS: CETIRIZINE HCL 10 MG TAB PO SCH (08:01)
[2017-08-27] MEDS: DOCUSATE SODIUM 50 MG/SENNA 8.6 MG TAB PO SCH ×2 (08:01→19:33)
[2017-08-27] MEDS: MORPHINE SULFATE 2 MG/ML INJ IV PUSH PRN ×3 (08:02→17:37)
[2017-08-27] MEDS: guaiFENesin E.R. 600 MG TAB PO SCH ×2 (08:05→19:33)
[2017-08-27] MEDS: SODIUM CHLORIDE 0.9% FLUSH 10 ML FLUSH IV FLUSH SCH ×2 (08:21→19:42)
[2017-08-27] MEDS: UMECLIDINIUM 62.5 MCG/VILANTEROL 25 MCG INHALER INH SCH (08:21)
[2017-08-27] MEDS: BUDESONIDE-FORMOTEROL 160/4.5 MCG INHALER INH SCH ×2 (08:21→19:42)
--- NOTE | 2017-08-27 12:15 | HHI.CCPN ---
Subjective Remarks/Hospital Course 08/27: 86-year-old male with a medical history significant for COPD, lung cancer previously treated with chemotherapy and radiation who was admitted on 2017 by hospitalist service for worsening shortness of breath and cough. He was found to have moderate to large right pleural effusion for which he underwent thoracentesis by IR which was complicated by a pneumothorax for which patient underwent rr pigtail catheter placement. Patient had persistent pneumothorax and subsequently underwent a large bore chest tube placement. He was evaluated by pulmonary medicine as well as CT surgery for persistent air leak/pneumothorax. Apparently his pigtail catheter and chest tube stopped having air leak. Patient developed worsening respiratory distress on the floor this morning for which rapid response team was called. Stat chest x-ray revealed a right pneumothorax with chest tube and pigtail catheter in place however no air leak was noted on my evaluation at bedside in either tubes in the pleurovacs. Patient was transferred to the ICU. After speaking with the patient's daughter by phone who consented to chest tube placement, right sided 20 Faroese chest tube placed under local anesthesia following with there was persistent air leak from newly inserted chest tube with postprocedure chest x- ray revealing reexpansion of lung and improvement in patient's respirations and O2 sats. Patient did receive Solu-Medrol 125 mg IV 1 dose as well as Lasix IV , Cardizem 20 mg IV earlier during [facility]. Patient is a DNR status per discussion with patient's daughter as well as Dr. Rodrigues palliative care. 08/28: Continues to be short of breath and 9 inches. Air leak persists from newly inserted right sided chest tube. Pulmonary medicine is scheduling blood patch for today. Objective Vital Signs Date Time Temp Pulse Resp B/P (MAP) Pulse Ox O2 Delivery O2 Flow Rate FiO2 08/27/17 08:55 94 Nasal Cannula 3.00 08/27/17 08:00 98.0 133 28 133/73 (93) Intake and Output 08/27/17 08/27/17 08/28/17 08:00 16:00 00:00 Output Total 785 ml Balance -785 ml Result Diagram: 08/26/17 0650 08/26/17 0650 Imaging Last Impressions Chest X-Ray 08/26/17 0000 Signed Impressions: Service Date/Time: Saturday, August 26, 2017 08:23 - CONCLUSION: 1. Additional placement of a third right chest tube with improvement in right pneumothorax. Small residual pneumothorax remains. Improved aeration right lung base. Left lung remains relatively clear. Glen Mohr MD Chest CT 08/22/17 1119 Signed Impressions: Service Date/Time: Tuesday, August 22, 2017 12:49 - CONCLUSION: Large right pneumothorax in spite of chest tube. Findings were called to the floor Shawn Meza MD FACR Chest Tube Insertion 08/15/17 0000 Signed Impressions: Service Date/Time: Tuesday, August 15, 2017 12:00 - CONCLUSION: Uncomplicated chest tube placement as above. J Carlos Bunch MD Chest Tube Change 08/14/17 0000 Signed Impressions: Service Date/Time: August 09:10 - CONCLUSION: Uncomplicated chest tube exchange as above. J Carlos Bunch MD Thoracentesis Ultrasound 08/13/17 0000 Signed Impressions: Service Date/Time: Sunday, August 13, 2017 11:45 - CONCLUSION: Right thoracentesis with with a subsequent right pneumothorax. This was treated with a 10 Faroese catheter. The catheter was sutured in place and will need to be followed. J Carlos Diana MD CT Angiography 08/12/17 192 Signed Impressions: Service Date/Time: Saturday, August 12, 2017 20:57 - CONCLUSION: 1. No evidence of pulmonary embolism. 2. Right pleural effusion Charly Medrano MD Procedures Chest tubeS placement X2 Objective Remarks HEENT/Neuro: Positive pallor, no icterus, tongue moist, LALITA, Awake alert, appears anxious nonfocal grossly, moving all 4 extremities Neck: No JVD Chest/pulmonary: Using accessory muscles of respiration, good air entry bilaterally, scattered rhonchi, no wheezing, 2 right sided chest tubes in place , one with air leak present. Pigtail catheter in place with no air leak Cardiovascular: S1-S2 regular no gallop or murmur GI/abdomen: Soft, nontender, bowel sounds present Extremities: Warm bilaterally, no edema A/P Assessment and Plan 86-year-old male with: Acute respiratory failure Persistent pneumothorax status post chest tube placement COPD Pneumonia Tachycardia Right pleural effusion History of lung cancer Plan: Neuro: Morphine for mild grams IV given earlier for discomfort and anxiety. Follow neuro status Cardiovascular: Watch for hypotension. Received Cardizem and Lasix IV during rapid response earlier for hypertension with heart rate 160s. EKG revealed sinus tachycardia. Follow cardiac enzymes Pulmonary: Continue supplemental O2. Right sided chest tube placed for persistent pneumothorax with resolution. Being followed by pulmonary. Plan for possible pleurodesis/ blood patch for 08/27. Continue bronchodilators, IV Solu-Medrol. GI/liver: Advance by mouth diet as tolerated. Renal/: Strict intake output, monitor and replete electro lites, follow BUN/ creatinine. ID: Continue Zithromax/Zosyn. All cultures negative so far. Endocrine: SSI for glycemic control if needed. Heme: Follow CBC Prophylaxis: SCDs. Subcutaneous heparin Condition critical. Prognosis appears extremely poor. Discussed with Dr. Rodrigues from palliative care earlier. Patient considering hospice. DNR status at this time. Viktor Wilson MD Aug 27, 2017 12:15
[2017-08-27] MEDS: SENNOSIDES 8.6 MG TAB PO SCH ×3 (12:38→22:11)
[2017-08-27] MEDS ORDERED: IOHEXOL 350 MG/ML 50 ML BTL (for RAD DIAG) OTHER ONE (14:24)
--- NOTE | 2017-08-27 14:55 | RADRPT ---
EXAM DATE/TIME: 08/27/2017 12:21 [facility] COMPARISON: No previous studies available for comparison. INDICATIONS : 86-year-old male with history of severe COPD and pneumothorax with persistent air leak requiring mult iple chest tube placements following thoracentesis 2 weeks ago. Patient is not a surgical candidate a nd now placed on hospice. Plan is for last resort autologous blood pleurodesis. MEDICAL HISTORY : COPD BPH Anxiety Irregular heart rate Carcinoma-lung Osteoarthritis Chronic LE pedal adema SURGICAL HISTORY : Skin cancer removal Chest tube Bilateral hip sx Right knee sx ENCOUNTER: Subsequent ACUITY: 2 weeks PAIN SCORE: 8/10 LOCATION: Chest FLUORO TIME: 0.2 minutes IMAGE SERIES: 1 CONTRAST: 10 cc Omnipaque (iohexol) 350 PROCEDURE : 1. Autologous blood pleurodesis. 2. Fluoroscopic guidance. The risks, benefits, and alternatives to paracentesis were explained to the patient in detail, lay te vitaly including the risk of bleeding and infection. Oral and written informed consent was obtained. The site was prepped in sterile fashion. Full sterile technique was used, including cap, mask, steri le gloves and gown and a large sterile sheet. Hand hygiene and 2% chlorhexidine and/or betadine/alco hol prep was utilized per protocol for cutaneous antisepsis. The skin and subcutaneous tissues were infiltrated with local anesthetic solution. 50 mL of patient's own blood was removed from a newly placed IV line using strict sterile technique. The blood was subsequently instilled through the apical chest tube and flushed with 50 cc of saline. The catheter was then placed on water seal and elevated proximally 40 cm above the patient's thorax. Patient will be re\re positioned every 15 minutes for the next 2 hours. Upon completion of this the c hest tube will be again placed to Pleur-evac suction. CONCLUSION: Uncomplicated autologous blood pleurodesis as above. Jonathan Galeas MD on August 27, 2017 at 14:49 Board Certified Radiologist. This report was verified electronically.
--- NOTE | 2017-08-27 15:49 | HHI.HCPN ---
Reason for visit a. To assist with evaluation and management of symptoms including: Pain, short of breath b. To assist medical decision maker(s) with: better understanding of current medical conditions; weighing benefits/burdens of medical treatment options; making medical treatment decisions. . Subjective/Interval History INTERVAL NOTE: The patient continues to feel weaker. He continues to have some pain related to the chest tubes. The most recent chest tube continues to demonstrate air leak. He is scheduled for a blood patch today. The patient states that "this is probably the final thing to try." Once the air leak is subsided, hopefully the chest tubes can come out. The patient is so weak and frail, he will be appropriate for hospice services regardless of whether the air leak stops or not. . Advance Directives Living Will: Never completed Health Care Surrogate: Completed, but not made available Durable Power of Outside Sales Representative: Completed, but not made available Advance Directive Specifics Health Care Surrogate(s): Patient's daughter Melanie . Objective Vital Signs Date Time Temp Pulse Resp B/P (MAP) Pulse Ox O2 Delivery O2 Flow Rate FiO2 08/27/17 15:00 133 08/27/17 12:00 98.1 131 23 102/63 (76) 100 08/27/17 08:55 94 Nasal Cannula 3.00 08/27/17 08:00 98.0 133 28 133/73 (93) 95 08/27/17 07:00 95 Nasal Cannula 3.00 08/27/17 07:00 133 08/27/17 04:00 97.9 137 21 112/75 (87) 93 08/27/17 00:00 97.5 136 23 95/55 (68) 94 08/26/17 23:00 121 08/26/17 20:09 95 Nasal Cannula 3.00 08/26/17 20:00 97.7 121 18 104/58 (73) 94 08/26/17 19:00 96 Nasal Cannula 3.00 08/26/17 18:00 131 08/26/17 16:00 97.9 109 22 91/54 (66) 90 08/26/17 16:00 109 Intake & Output 08/27/17 08/27/17 07:00 19:00 Intake Total 250 ml Output Total 785 ml Balance -535 ml IV Total 250 ml Output Urine Total 425 ml Chest Tube Drainage Total 360 ml Physical Exam CONSTITUTIONAL/GENERAL: This is an elderly, frail patient, with mild apparent dyspnea with talking, appears profoundly weak. TUBES/LINES/DRAINS: Chest tubes 4 on the right, [place]carra, IV access NECK: Trachea midline. Supple, nontender. No palpable thyroid enlargement or nodularity. CARDIOVASCULAR: Regular rate and rhythm without murmurs, gallops, or rubs. No JVD. Peripheral pulses quite diminished. RESPIRATORY/CHEST: Symmetric, breath sounds diminished but equal bilateral. Some scattered rhonchi GASTROINTESTINAL: Abdomen soft, non-tender, nondistended. No hepato-splenomegaly , or palpable masses. No guarding. Bowel sounds present. MUSCULOSKELETAL: Extremities without clubbing, cyanosis, or edema. No joint tenderness or effusion noted. No calf tenderness. No mottling or clubbing. NEUROLOGICAL: Awake and alert. Motor and sensory grossly within normal limits, but quite weak. Follows commands. Remains cognitively sharp. Moves all extremities. PSYCHIATRIC: No obvious anxiety/depression. no apparent hallucinations or other psychotic thought process. . Diagnostic Tests Laboratory Laboratory Tests Test 08/24/17 16:55 08/25/17 07:20 08/26/17 06:50 08/26/17 13:46 Total Creatine Kinase 112 U/L (39-308) 98 U/L (39-308) 180 U/L (39-308) 162 U/L (39-308) Troponin I LESS THAN 0.02 NG/ML LESS THAN 0.02 NG/ML 0.03 NG/ML (0.02-0.05) 0.15 NG/ML (0.02-0.05) White Blood Count 23.2 TH/MM3 (4.0-11.0) 23.6 TH/MM3 (4.0-11.0) Red Blood Count 4.07 MIL/MM3 (4.50-5.90) 4.28 MIL/MM3 (4.50-5.90) Hemoglobin 13.1 GM/DL (13.0-17.0) 13.7 GM/DL (13.0-17.0) Hematocrit 39.4 % (39.0-51.0) 41.8 % (39.0-51.0) Mean Corpuscular Volume 96.8 FL (80.0-100.0) 97.4 FL (80.0-100.0) Mean Corpuscular Hemoglobin 32.3 PG (27.0-34.0) 31.9 PG (27.0-34.0) Mean Corpuscular Hemoglobin Concent 33.4 % (32.0-36.0) 32.7 % (32.0-36.0) Red Cell Distribution Width 12.7 % (11.6-17.2) 12.9 % (11.6-17.2) Platelet Count 142 TH/MM3 (150-450) 177 TH/MM3 (150-450) Mean Platelet Volume 10.7 FL (7.0-11.0) 11.5 FL (7.0-11.0) Neutrophils (%) (Auto) 94.2 % (16.0-70.0) 94.5 % (16.0-70.0) Lymphocytes (%) (Auto) 1.9 % (9.0-44.0) 1.1 % (9.0-44.0) Monocytes (%) (Auto) 3.8 % (0.0-8.0) 3.7 % (0.0-8.0) Eosinophils (%) (Auto) 0.0 % (0.0-4.0) 0.3 % (0.0-4.0) Basophils (%) (Auto) 0.1 % (0.0-2.0) 0.4 % (0.0-2.0) Neutrophils # (Auto) 21.9 TH/MM3 (1.8-7.7) 22.3 TH/MM3 (1.8-7.7) Lymphocytes # (Auto) 0.5 TH/MM3 (1.0-4.8) 0.3 TH/MM3 (1.0-4.8) Monocytes # (Auto) 0.9 TH/MM3 (0-0.9) 0.9 TH/MM3 (0-0.9) Eosinophils # (Auto) 0.0 TH/MM3 (0-0.4) 0.1 TH/MM3 (0-0.4) Basophils # (Auto) 0.0 TH/MM3 (0-0.2) 0.1 TH/MM3 (0-0.2) CBC Comment DIFF FINAL AUTO DIFF Differential Comment FINAL DIFF MANUAL Blood Urea Nitrogen 29 MG/DL (7-18) 26 MG/DL (7-18) Creatinine 1.18 MG/DL (0.60-1.30) 1.03 MG/DL (0.60-1.30) Random Glucose 117 MG/DL (74-106) 139 MG/DL (74-106) Total Protein 5.9 GM/DL (6.4-8.2) 6.6 GM/DL (6.4-8.2) Albumin 2.4 GM/DL (3.4-5.0) 2.4 GM/DL (3.4-5.0) Calcium Level 8.5 MG/DL (8.5-10.1) 7.8 MG/DL (8.5-10.1) Alkaline Phosphatase 59 U/L (45-117) 59 U/L (45-117) Aspartate Amino Transf (AST/SGOT) 16 U/L (15-37) 20 U/L (15-37) Alanine Aminotransferase (ALT/SGPT) 16 U/L (12-78) 19 U/L (12-78) Total Bilirubin 0.4 MG/DL (0.2-1.0) 0.4 MG/DL (0.2-1.0) Sodium Level 145 MEQ/L (136-145) 144 MEQ/L (136-145) Potassium Level 4.6 MEQ/L (3.5-5.1) 4.2 MEQ/L (3.5-5.1) Chloride Level 107 MEQ/L (98-107) 108 MEQ/L (98-107) Carbon Dioxide Level 26.6 MEQ/L (21.0-32.0) 30.1 MEQ/L (21.0-32.0) Anion Gap 11 MEQ/L (5-15) 6 MEQ/L (5-15) Estimat Glomerular Filtration Rate 58 ML/MIN (>89) 68 ML/MIN (>89) Phosphorus Level 2.9 MG/DL (2.5-4.9) 3.3 MG/DL (2.5-4.9) Magnesium Level 2.3 MG/DL (1.5-2.5) 2.4 MG/DL (1.5-2.5) Differential Total Cells Counted 100 Neutrophils % (Manual) 80 % (16-70) Band Neutrophils % 12 % (0-6) Lymphocytes % 2 % (9-44) Monocytes % 6 % (0-8) Neutrophils # (Manual) 21.7 TH/MM3 (1.8-7.7) Platelet Estimate NORMAL (NORMAL) Platelet Morphology Comment NORMAL (NORMAL) Lactic Acid Level 1.6 mmol/L (0.4-2.0) Creatine Kinase MB 5.4 NG/ML (0.5-3.6) 4.9 NG/ML (0.5-3.6) Test 08/26/17 18:53 08/27/17 00:30 Nasal Screen MRSA (PCR) MRSA NOT DETECTED (NOT Total Creatine Kinase 122 U/L (39-308) Creatine Kinase MB 3.1 NG/ML (0.5-3.6) Troponin I 0.10 NG/ML (0.02-0.05) Result Diagram: 08/26/17 0650 08/26/17 0650 Procedures Chest tube procedures 4 . Assessment and Plan Disease Oriented Problem List: (1) pneumonia (2) pneumothorax, with persistent air leak (3) moderately severe COPD, bullous emphysema (4) peripheral vascular disease (5) skin cancers, excisions (6) skin cancers, excisions degenerative joint disease (7) anxiety (8) BPH Symptom Scale: (1) dyspnea 0-10 Scale: Unable to quantify (2) pain 0-10 Scale: 5 (intermittent, stabbing) (3) anxiety 0-10 Scale: 0 Pertinent Non-Medical Issues Psychosocial: , one daughter, own motels in the past. Spiritual: The patient is Buddhist, and spirituality is very important for him. A tobacco feeder catcher has visited him here in the hospital. Legal: The patient has capacity for decision-making. He reports that his daughter is the designated health care surrogate. Ethical issues impacting care: None . Important Contacts Daughter: Melanie Love [phone] . Prognosis The patient's overall prognosis is rather poor. He has underlying severe bullous emphysema, has been increasingly debilitated for the past couple years with marked weight loss and weakness requiring the use of a walker at home, and now he has a prolonged hospitalization, currently with pneumonia. He would be appropriate for hospice services if he feels that his goals will be completely comfort oriented. . Code Status: No Code Plan * DO NOT RESUSCITATE, per request of patient 08/25/17, and confirmed by patient' s daughter * DECISION-MAKING: The patient has capacity for decision-making. He reports that his daughter is the designated health care surrogate. * GOALS: The patient is very clear that he would not want any resuscitation and would not want to be on life support. He does recognize that he has declined significantly over the past couple weeks in the hospital, that it is unlikely that he will be able to return home to live alone, and he continues to consider whether to transition to hospice services to focus on his symptoms and comfort. * SYMPTOMS: PAIN: The patient has been receiving parenteral morphine once or twice per day, and also oxycodone once or twice per day, and he says the pain medicine is in fact helping his pain. DYSPNEA: The patient has ongoing mild dyspnea. I have no further medication recommendations at this time. * Palliative Care will continue to follow the patient during this hospitalization. . Time Spent Total Floor Time (mins): 29 Face to Face Time (mins): 18 >50% Counseling/Coord of Care: Yes (d/w Dr. Jiménez) Attestation To help prompt me to consider important information that might be impacting today's encounter and assessment, information from prior notes written by myself or my colleagues may have been "brought forward" into today's note. My signature on this note, however, is an attestation that I personally performed the exam, history, and/or decision-making noted today, and, unless otherwise indicated, the interactions with patient, family, and staff as well as the review of records all occurred today. I also attest that the listed assessment and stated plan reflect my best clinical judgment today based on the combination of historical information, prior notes, and today's exam/ interactions. When time spent is documented, it refers only to time spent today by the signer, or if indicated, combined time spent today by collaborating physician/nurse practitioner. Nadya Rodrigues MD Aug 27, 2017 15:49
[2017-08-27] MEDS: RESP: ALBUTEROL 2.5 MG/IPRATROPIUM 0.5 MG NEB (PRN) NEB ×2 (16:15→19:39)
--- NOTE | 2017-08-27 17:37 | RADRPT ---
EXAM DATE/TIME: 08/27/2017 17:13 [facility] COMPARISON: CHEST SINGLE AP, August 26, 2017, 19:00. INDICATIONS : Right side chest tube evalutaion. MEDICAL HISTORY : Carcinoma, lung. Chronic obstructive pulmonary disease. Cardiovascular disease. SURGICAL HISTORY : Chest tube x2. ENCOUNTER: Subsequent ACUITY: 1 week PAIN SCORE: 0/10 LOCATION: Bilateral chest FINDINGS: The examination demonstrates [address] on the right. There are 2 in the lung apex and on e in the mid aspect of the right lung. There does appear to be a small right apical pneumothorax. The re is fairly diffuse subcutaneous emphysema the right chest wall. There is atelectasis in the right middle lower lobe. There is mild hyperinflation of the left lung. CONCLUSION: 1. [address] on the right. 2. Small right apical pneumothorax. Steven Meza MD on August 27, 2017 at 17:34 Board Certified Radiologist. This report was verified electronically.
[2017-08-27] MEDS: LORazepam 2 MG/ML VIAL IV PUSH PRN (18:21)
[2017-08-27] MEDS: AZITHROMYCIN INJ 500 MG in SODIUM CHLOR 0.9% 250 ML INJ 250 ML IV SCH (22:11)
[2017-08-28] VITALS (9 sets, daily range): BP systolic 91–113; BP diastolic 50–67; PULSE 57–131; RESP 18–39; TEMP 97.4–98.6; O2SAT 97–100
[2017-08-28] MEDS: RESP: ALBUTEROL 2.5 MG/IPRATROPIUM 0.5 MG NEB (PRN) NEB ×2 (01:11→08:29)
[2017-08-28] MEDS: LORazepam 2 MG/ML VIAL IV PUSH PRN (01:48)
[2017-08-28] MEDS: MORPHINE SULFATE 2 MG/ML INJ IV PUSH PRN ×2 (02:18→08:40)
[2017-08-28] MEDS: PIPERACIL-TAZO 4.5 GM PREMIX 100 ML IV SCH (04:22)
[2017-08-28] MEDS: guaiFENesin E.R. 600 MG TAB PO SCH (08:14)
[2017-08-28] MEDS: CETIRIZINE HCL 10 MG TAB PO SCH (08:14)
[2017-08-28] MEDS: DOCUSATE SODIUM 50 MG/SENNA 8.6 MG TAB PO SCH ×2 (08:14→21:00)
[2017-08-28] MEDS: methylPREDNISolone SOD SUCC 40 MG/1 ML VIAL IV PUSH SCH ×2 (08:14→21:15)
[2017-08-28] MEDS: ASPIRIN 325 MG TAB PO SCH (08:14)
[2017-08-28] MEDS: MEGESTROL ACETATE 40 MG TAB PO SCH (08:14)
[2017-08-28] MEDS: ENOXAPARIN SODIUM 30 MG/0.3 ML SYRINGE SQ SCH (08:14)
[2017-08-28] MEDS: BUDESONIDE-FORMOTEROL 160/4.5 MCG INHALER INH SCH (08:15)
[2017-08-28] MEDS: SODIUM CHLORIDE 0.9% FLUSH 10 ML FLUSH IV FLUSH SCH ×2 (08:15→21:14)
[2017-08-28] MEDS: UMECLIDINIUM 62.5 MCG/VILANTEROL 25 MCG INHALER INH SCH (08:15)
--- NOTE | 2017-08-28 09:56 | HHI.HCPN ---
Reason for visit a. To assist with evaluation and management of symptoms including: Pain, short of breath b. To assist medical decision maker(s) with: better understanding of current medical conditions; weighing benefits/burdens of medical treatment options; making medical treatment decisions. . Subjective/Interval History INTERVAL NOTE: The patient underwent the autologous blood pleurodesis yesterday, but he continues to have a significant air leak. He has had more pain overnight, has required more lorazepam and morphine, and has continued to decline. He appears to be PPS 20%, continuing to decline at this time, and still feels dyspneic in spite of being on a mask at 10 L. I again had a conversation with patient about a transition to comfort measures and engaging hospice services, and he was able to look me in the eyes and nod his head "yes." I told him that I would try to call his daughter, and he again nodded his head. . Family/friend interactions Spoke with daughter Melanie by telephone; she confirms and supports the patient' s decision to transition to comfort only and engage hospice services. She will be arriving at the hospital about 1 PM to meet with the hospice admissions nurse. . Advance Directives Living Will: Never completed Health Care Surrogate: Completed, but not made available Durable Power of Solution Lead: Completed, but not made available Advance Directive Specifics Health Care Surrogate(s): Patient's daughter Melanie . Significant change in goals: Transition to comfort only, hospice services . Objective Vital Signs Date Time Temp Pulse Resp B/P (MAP) Pulse Ox O2 Delivery O2 Flow Rate FiO2 08/28/17 08:28 100 Simple Mask 10.00 08/28/17 08:00 98.0 131 18 92/50 (64) 100 08/28/17 07:00 130 08/28/17 07:00 98 Simple Mask 10.00 08/28/17 04:00 97.4 126 20 97/53 (68) 100 08/28/17 00:00 98.6 110 26 91/53 (66) 97 08/27/17 23:00 110 08/27/17 20:00 98.0 131 18 92/50 (64) 100 08/27/17 19:40 100 Simple Mask 10.00 08/27/17 19:00 100 Simple Mask 10.00 08/27/17 16:00 97.9 141 32 141/69 (93) 93 3/14/18 15:00 133 08/27/17 12:00 98.1 131 23 102/63 (76) 100 Intake & Output 08/28/17 08/28/17 07:00 19:00 Output Total 735 ml Balance -735 ml Output Urine Total 475 ml Chest Tube Drainage Total 260 ml Physical Exam CONSTITUTIONAL/GENERAL: This is an elderly, frail patient, with moderate dyspnea and moderate lethargy. TUBES/LINES/DRAINS: Chest tubes 3 on the right, Vizcarra, IV access NECK: Trachea midline. Supple, nontender. No palpable thyroid enlargement or nodularity. CARDIOVASCULAR: Regular rate and rhythm without murmurs, gallops, or rubs. No JVD. Peripheral pulses quite diminished. RESPIRATORY/CHEST: Symmetric, breath sounds diminished but equal bilateral. Some scattered rhonchi, couple wheezes GASTROINTESTINAL: Abdomen soft, non-tender, nondistended. No hepato-splenomegaly , or palpable masses. No guarding. Bowel sounds present. MUSCULOSKELETAL: Extremities without clubbing, cyanosis, or edema. No joint tenderness or effusion noted. No calf tenderness. No mottling or clubbing. NEUROLOGICAL: Lethargic, but does seem to hear and understand and respond appropriately to my comments and questions. Follows commands easily PSYCHIATRIC: Seems somewhat restless with the dyspnea now . Diagnostic Tests Laboratory Laboratory Tests Test 08/26/17 06:50 08/26/17 13:46 08/26/17 18:53 08/27/17 00:30 White Blood Count 23.6 TH/MM3 (4.0-11.0) Red Blood Count 4.28 MIL/MM3 (4.50-5.90) Hemoglobin 13.7 GM/DL (13.0-17.0) Hematocrit 41.8 % (39.0-51.0) Mean Corpuscular Volume 97.4 FL (80.0-100.0) Mean Corpuscular Hemoglobin 31.9 PG (27.0-34.0) Mean Corpuscular Hemoglobin Concent 32.7 % (32.0-36.0) Red Cell Distribution Width 12.9 % (11.6-17.2) Platelet Count 177 TH/MM3 (150-450) Mean Platelet Volume 11.5 FL (7.0-11.0) Neutrophils (%) (Auto) 94.5 % (16.0-70.0) Lymphocytes (%) (Auto) 1.1 % (9.0-44.0) Monocytes (%) (Auto) 3.7 % (0.0-8.0) Eosinophils (%) (Auto) 0.3 % (0.0-4.0) Basophils (%) (Auto) 0.4 % (0.0-2.0) Neutrophils # (Auto) 22.3 TH/MM3 (1.8-7.7) Lymphocytes # (Auto) 0.3 TH/MM3 (1.0-4.8) Monocytes # (Auto) 0.9 TH/MM3 (0-0.9) Eosinophils # (Auto) 0.1 TH/MM3 (0-0.4) Basophils # (Auto) 0.1 TH/MM3 (0-0.2) CBC Comment AUTO DIFF Differential Total Cells Counted 100 Neutrophils % (Manual) 80 % (16-70) Band Neutrophils % 12 % (0-6) Lymphocytes % 2 % (9-44) Monocytes % 6 % (0-8) Neutrophils # (Manual) 21.7 TH/MM3 (1.8-7.7) Differential Comment FINAL DIFF MANUAL Platelet Estimate NORMAL (NORMAL) Platelet Morphology Comment NORMAL (NORMAL) Blood Urea Nitrogen 26 MG/DL (7-18) Creatinine 1.03 MG/DL (0.60-1.30) Random Glucose 139 MG/DL (74-106) Total Protein 6.6 GM/DL (6.4-8.2) Albumin 2.4 GM/DL (3.4-5.0) Calcium Level 7.8 MG/DL (8.5-10.1) Phosphorus Level 3.3 MG/DL (2.5-4.9) Magnesium Level 2.4 MG/DL (1.5-2.5) Alkaline Phosphatase 59 U/L (45-117) Aspartate Amino Transf (AST/SGOT) 20 U/L (15-37) Alanine Aminotransferase (ALT/SGPT) 19 U/L (12-78) Total Bilirubin 0.4 MG/DL (0.2-1.0) Sodium Level 144 MEQ/L (136-145) Potassium Level 4.2 MEQ/L (3.5-5.1) Chloride Level 108 MEQ/L (98-107) Carbon Dioxide Level 30.1 MEQ/L (21.0-32.0) Anion Gap 6 MEQ/L (5-15) Estimat Glomerular Filtration Rate 68 ML/MIN (>89) Lactic Acid Level 1.6 mmol/L (0.4-2.0) Total Creatine Kinase 180 U/L (39-308) 162 U/L (39-308) 122 U/L (39-308) Creatine Kinase MB 5.4 NG/ML (0.5-3.6) 4.9 NG/ML (0.5-3.6) 3.1 NG/ML (0.5-3.6) Troponin I 0.03 NG/ML (0.02-0.05) 0.15 NG/ML (0.02-0.05) 0.10 NG/ML (0.02-0.05) Nasal Screen MRSA (PCR) MRSA NOT DETECTED (NOT Result Diagram: 08/26/17 0650 08/26/17 0650 Imaging Last Impressions Pleurodesis 08/27/17 0000 Signed Impressions: Service Date/Time: Sunday, August 27, 2017 12:21 - CONCLUSION: Uncomplicated autologous blood pleurodesis as above. Jonathan Galeas MD Chest X-Ray 08/27/17 0000 Signed Impressions: Service Date/Time: Sunday, August 27, 2017 17:13 - CONCLUSION: 1. [address] on the right. 2. Small right apical pneumothorax. Steven Meza MD Chest CT 08/22/17 1119 Signed Impressions: Service Date/Time: Tuesday, August 22, 2017 12:49 - CONCLUSION: Large right pneumothorax in spite of chest tube. Findings were called to the floor Shawn Meza MD FACR Chest Tube Insertion 08/15/17 0000 Signed Impressions: Service Date/Time: Tuesday, August 15, 2017 12:00 - CONCLUSION: Uncomplicated chest tube placement as above. J Carlos Bunch MD Chest Tube Change 08/14/17 0000 Signed Impressions: Service Date/Time: August 09:10 - CONCLUSION: Uncomplicated chest tube exchange as above. J Carlos Bunch MD Thoracentesis Ultrasound 08/13/17 0000 Signed Impressions: Service Date/Time: Sunday, August 13, 2017 11:45 - CONCLUSION: Right thoracentesis with with a subsequent right pneumothorax. This was treated with a 10 Montserratian catheter. The catheter was sutured in place and will need to be followed. J Carlos Diana MD CT Angiography 08/12/171925 Signed Impressions: Service Date/Time: Saturday, August 12, 2017 20:57 - CONCLUSION: 1. No evidence of pulmonary embolism. 2. Right pleural effusion Charly Medrano MD Procedures Chest tube procedures 4 Autologous blood pleurodesis 08/27/17 . Assessment and Plan Disease Oriented Problem List: (1) pneumonia Comment: Respiratory failure (2) pneumothorax, with persistent air leak (3) moderately severe COPD, bullous emphysema (4) peripheral vascular disease (5) skin cancers, excisions (6) skin cancers, excisions degenerative joint disease (7) anxiety (8) BPH Symptom Scale: (1) dyspnea 0-10 Scale: Unable to quantify (2) pain 0-10 Scale: 5 (intermittent, stabbing) (3) anxiety 0-10 Scale: 2 (Seems worse with the worsening dyspnea) Pertinent Non-Medical Issues Psychosocial: , one daughter, own motels in the past. Spiritual: The patient is Buddhist, and spirituality is very important for him. A product management analyst has visited him here in the hospital. Legal: The patient has capacity for decision-making. He reports that his daughter is the designated health care surrogate. Ethical issues impacting care: None . Important Contacts Daughter: Melanie Love [phone] . Prognosis The patient's overall prognosis is rather poor. He has underlying severe bullous emphysema, has been increasingly debilitated for the past couple years with marked weight loss and weakness requiring the use of a walker at home, and now he has a prolonged hospitalization, currently with pneumonia. He would be appropriate for hospice services if he feels that his goals will be completely comfort oriented. . Code Status: No Code Plan * DO NOT RESUSCITATE, per request of patient 08/25/17, and confirmed by patient' s daughter * DECISION-MAKING: The patient has capacity for decision-making, but he is losing that capacity now. He has previously reported that his daughter is the designated health care surrogate. * GOALS: The patient has consistently been very clear that he would not want any resuscitation and would not want to be on life support. He now clearly wants to focus on comfort, and is agreeable to engaging hospice services. I have entered some new orders for scheduled and PRN morphine/Ativan. * SYMPTOMS: PAIN: I have placed the patient on some scheduled morphine, and he has available frequent PRN morphine and Ativan doses for comfort now. * Hospice consult placed. * Palliative Care will continue to follow the patient during this hospitalization. . Time Spent Total Floor Time (mins): 41 Face to Face Time (mins): 16 >50% Counseling/Coord of Care: Yes (d/w Dr. Wilson and w RN) Attestation To help prompt me to consider important information that might be impacting today's encounter and assessment, information from prior notes written by myself or my colleagues may have been "brought forward" into today's note. My signature on this note, however, is an attestation that I personally performed the exam, history, and/or decision-making noted today, and, unless otherwise indicated, the interactions with patient, family, and staff as well as the review of records all occurred today. I also attest that the listed assessment and stated plan reflect my best clinical judgment today based on the combination of historical information, prior notes, and today's exam/ interactions. When time spent is documented, it refers only to time spent today by the signer, or if indicated, combined time spent today by collaborating physician/nurse practitioner. Nadya Rodrigues MD Aug 28, 2017 09:56
[2017-08-28] MEDS ORDERED: MORPHINE SULFATE 2 MG/ML INJ IV PUSH PRN (10:15)
[2017-08-28] MEDS ORDERED: LORazepam 2 MG/ML VIAL IV PUSH PRN (10:15)
[2017-08-28] MEDS: MORPHINE SULFATE 4 MG/ML INJ IV PUSH SCH ×3 (11:06→19:21)
--- NOTE | 2017-08-28 11:21 | RADRPT ---
EXAM DATE/TIME: 08/28/2017 10:16 [facility] COMPARISON: CHEST EXPIRATION ONLY, August 16, 2017, 4:45. INDICATIONS : Pneumothorax. MEDICAL HISTORY : Carcinoma, lung. Chronic obstructive pulmonary disease. Cardiovascular disease. SURGICAL HISTORY : Chest tube, right (multiple). ENCOUNTER: Subsequent ACUITY: 1 week PAIN SCORE: Non-responsive. LOCATION: Bilateral chest FINDINGS: There is a small caliber right chest and in the apex and to a larger caliber right chest tubes are pr esent is a tiny apical pneumothorax. There is air in right chest wall. Airspace disease remains in th e right lung similar to August 27. Left lung remains relatively clear. Cardiomegaly. CONCLUSION: 1. 3 right-sided chest tubes present as above with tiny apical pneumothorax, improved from August 27. Glen Mohr MD on August 28, 2017 at 11:17 Board Certified Radiologist. This report was verified electronically.
--- NOTE | 2017-08-28 13:41 | HHI.CCPN ---
Subjective Remarks/Hospital Course 08/26: 86-year-old male with a medical history significant for COPD, lung cancer previously treated with chemotherapy and radiation who was admitted on 2017 by hospitalist service for worsening shortness of breath and cough. He was found to have moderate to large right pleural effusion for which he underwent thoracentesis by IR which was complicated by a pneumothorax for which patient underwent rr pigtail catheter placement. Patient had persistent pneumothorax and subsequently underwent a large bore chest tube placement. He was evaluated by pulmonary medicine as well as CT surgery for persistent air leak/pneumothorax. Apparently his pigtail catheter and chest tube stopped having air leak. Patient developed worsening respiratory distress on the floor this morning for which rapid response team was called. Stat chest x-ray revealed a right pneumothorax with chest tube and pigtail catheter in place however no air leak was noted on my evaluation at bedside in either tubes in the pleurovacs. Patient was transferred to the ICU. After speaking with the patient's daughter by phone who consented to chest tube placement, right sided 20 Tamazight chest tube placed under local anesthesia following with there was persistent air leak from newly inserted chest tube with postprocedure chest x- ray revealing reexpansion of lung and improvement in patient's respirations and O2 sats. Patient did receive Solu-Medrol 125 mg IV 1 dose as well as Lasix IV , Cardizem 20 mg IV earlier during [facility]. Patient is a DNR status per discussion with patient's daughter as well as Dr. Rodrigues palliative care. 08/27: Continues to be short of breath and 9 inches. Air leak persists from newly inserted right sided chest tube. Pulmonary medicine is scheduling blood patch for today. 08/28: Continues to be short of breath. Air leak persists. Per discussion with patient and palliative care and wishes to transition to hospice and comfort measures. Objective Vital Signs Date Time Temp Pulse Resp B/P (MAP) Pulse Ox O2 Delivery O2 Flow Rate FiO2 08/28/17 12:00 98.2 124 33 97/63 (74) 100 08/28/17 08:28 Simple Mask 10.00 Intake and Output 08/28/17 08/28/17 08/29/17 08:00 16:00 00:00 Output Total 735 ml Balance -735 ml Result Diagram: 08/26/17 0650 08/26/17 0650 Imaging Last Impressions Chest X-Ray 08/26/17 0000 Signed Impressions: Service Date/Time: Saturday, August 26, 2017 08:23 - CONCLUSION: 1. Additional placement of a third right chest tube with improvement in right pneumothorax. Small residual pneumothorax remains. Improved aeration right lung base. Left lung remains relatively clear. Glen Mohr MD Chest CT 08/22/17 1119 Signed Impressions: Service Date/Time: Tuesday, August 22, 2017 12:49 - CONCLUSION: Large right pneumothorax in spite of chest tube. Findings were called to the floor Shawn Meza MD FACR Chest Tube Insertion 08/15/17 0000 Signed Impressions: Service Date/Time: Tuesday, August 15, 2017 12:00 - CONCLUSION: Uncomplicated chest tube placement as above. J Carlos Bunch MD Chest Tube Change 08/14/17 0000 Signed Impressions: Service Date/Time: August 09:10 - CONCLUSION: Uncomplicated chest tube exchange as above. J Carlos Bunch MD Thoracentesis Ultrasound 08/13/17 0000 Signed Impressions: Service Date/Time: Sunday, August 13, 2017 11:45 - CONCLUSION: Right thoracentesis with with a subsequent right pneumothorax. This was treated with a 10 Tamazight catheter. The catheter was sutured in place and will need to be followed. J Carlos Diana MD CT Angiography 08/12/171925 Signed Impressions: Service Date/Time: Saturday, August 12, 2017 20:57 - CONCLUSION: 1. No evidence of pulmonary embolism. 2. Right pleural effusion Charly Medrano MD Procedures Chest tubeS placement X2 Objective Remarks HEENT/Neuro: Positive pallor, no icterus, tongue moist, LALITA, Awake alert, appears anxious nonfocal grossly, moving all 4 extremities Neck: No JVD Chest/pulmonary: Using accessory muscles of respiration, good air entry bilaterally, scattered rhonchi, no wheezing, 2 right sided chest tubes in place , one with air leak present. Pigtail catheter in place with no air leak Cardiovascular: S1-S2 regular no gallop or murmur GI/abdomen: Soft, nontender, bowel sounds present Extremities: Warm bilaterally, no edema A/P Assessment and Plan 86-year-old male with: Acute respiratory failure Persistent pneumothorax status post chest tube placement COPD Pneumonia Tachycardia Right pleural effusion History of lung cancer Plan: Neuro: Morphine for mild grams IV given earlier for discomfort and anxiety. Follow neuro status Cardiovascular: Watch for hypotension. EKG revealed sinus tachycardia. Pulmonary: Continue supplemental O2. Right sided chest tube placed for persistent pneumothorax with persistent air leak. Being followed by pulmonary. Status post possible pleurodesis/ blood patch on 08/27. Continue bronchodilators, IV Solu-Medrol. GI/liver: Advance by mouth diet as tolerated. Renal/: Strict intake output, monitor and replete electro lites, follow BUN/ creatinine. ID: Continue Zithromax/Zosyn. All cultures negative so far. Endocrine: SSI for glycemic control if needed. Heme: Follow CBC Prophylaxis: SCDs. Subcutaneous heparin Condition critical. Prognosis appears extremely poor. Discussed with Dr. Rodrigues from palliative care earlier. DNR status at this time. Plan for hospice with comfort measures only per patient's known wishes and per previous discussion with patient's daughter and palliative care team. Viktor Wilson MD Aug 28, 2017 13:41
== END 2017-08-28 23:07 | disposition hospice, inpatient (51) | DRG 186 ==
LOC: PHED 19:11 → PHEDA 22:19 → PH3B 08-13 00:20 → H1EA 08-15 09:54 → HRIP 08-15 10:52 → N05B 08-15 17:05 → N03A 08-26 06:33
PROVIDERS: ADMIT Internal Medicine Critical Care Medicine; ATTEND Internal Medicine Critical Care Medicine
PROC: 0W9930Z Drainage of Right Pleural Cavity with Drainage Device, Percutaneous Approach (ICD-10-PCS; principal; 2017-08-13)
PROC: 0W9930Z Drainage of Right Pleural Cavity with Drainage Device, Percutaneous Approach (ICD-10-PCS; 2017-08-14)
PROC: 2W04XYZ Change Other Device on Chest Wall (ICD-10-PCS; 2017-08-14)
PROC: 0W9930Z Drainage of Right Pleural Cavity with Drainage Device, Percutaneous Approach (ICD-10-PCS; 2017-08-15)
PROC: 0W9930Z Drainage of Right Pleural Cavity with Drainage Device, Percutaneous Approach (ICD-10-PCS; 2017-08-22)
PROC: 0W9930Z Drainage of Right Pleural Cavity with Drainage Device, Percutaneous Approach (ICD-10-PCS; 2017-08-26)
DX: J90 Pleural effusion, not elsewhere classified (principal); J18.9 Pneumonia, unspecified organism; J96.00 Acute respiratory failure, unspecified whether with hypoxia or hypercapnia; E46 Unspecified protein-calorie malnutrition; J44.0 Chronic obstructive pulmonary disease with (acute) lower respiratory infection; R64 Cachexia; J44.1 Chronic obstructive pulmonary disease with (acute) exacerbation; C34.91 Malignant neoplasm of unspecified part of right bronchus or lung; J95.811 Postprocedural pneumothorax; R06.03 Acute respiratory distress; I73.9 Peripheral vascular disease, unspecified; Z87.891 Personal history of nicotine dependence; Z92.21 Personal history of antineoplastic chemotherapy; Z92.3 Personal history of irradiation; Z87.442 Personal history of urinary calculi; K21.9 Gastro-esophageal reflux disease without esophagitis; F41.9 Anxiety disorder, unspecified; F32.9 Major depressive disorder, single episode, unspecified; M19.90 Unspecified osteoarthritis, unspecified site; Z85.828 Personal history of other malignant neoplasm of skin; N40.0 Benign prostatic hyperplasia without lower urinary tract symptoms; Z80.1 Family history of malignant neoplasm of trachea, bronchus and lung; Z82.3 Family history of stroke; Z84.89 Family history of other specified conditions; Y65.8 Other specified misadventures during surgical and medical care; Y82.8 Other medical devices associated with adverse incidents; Y92.238 Other place in hospital as the place of occurrence of the external cause; Z51.5 Encounter for palliative care; Z66 Do not resuscitate; N18.9 Chronic kidney disease, unspecified; C44.91 Basal cell carcinoma of skin, unspecified; R73.9 Hyperglycemia, unspecified; I12.9 Hypertensive chronic kidney disease with stage 1 through stage 4 chronic kidney disease, or unspecified chronic kidney disease
CPT/HCPCS: 32555; 32557; 32560; 36600; 71045; 71046; 71250; 71260; 71275; 77002; 80048; 80053; 82150; 82550; 82552; 82805; 82945; 83036; 83605; 83615; 83735; 83880; 83986; 84100; 84157; 84439; 84443; 84484; 85007; 85025; 85027; 85610; 85730; 87040; 87070; 87205; 87641; 87804; 88112; 88305; 89051; 93005; 93306; 94010; 94150; 94640; 94664; 96365; 96368; 99152; C1729; C1769; J0456; J0696; J1644; J1650; J1940; J2060; J2250; J2270; J2543; J2920; J2930; J3010; J7030; J7050; Q9967